=== PATIENT | female | born 1980 | race African-American/Black ===

== ENCOUNTER 2017-06-22 16:24 | Emergency (ER) | payer OTHER ==
[~2017-06-22] VITALS: Ht 149.9 cm; Wt 45.4 kg
[~2017-06-22 16:24] MED LIST: BENADRYL50 MG ORAL; CATAPRES0.1 MG ORAL; CLONIDINE0.1 MG GT; DIPHENHYDRAMINE25 M1 ORAL; FOLIC ACID1 MG ORAL; IBUPROFEN600 MG ORAL; Mesalamine ORAL; NORCO 5-325 TA1 EACH ORAL; PHENOBARBITAL30 MG ORAL; PHENOBARBITAL60 MG ORAL; PREDNISONE20 MG ORAL; PREDNISONE5 MG ORAL; PROTONIX40 MG ORAL; UNK BP MED
[2017-06-22 16:30] VITALS: BP 194/118
--- NOTE | 2017-06-22 16:38 | Emergency Room Report ---
History of Present Illness General Chief Complaint: Abdominal Pain Source: Patient Present Illness HPI 37-year-old female, history of Crohn's disease, history of gallbladder surgery, p/w abdominal pain for 2 days. Patient states pain started gradually, all over abdomen, non radiating, sharp/ crampy in nature, intermittent. No relieving or exacerbating factors. Severity is 5/10. Denies nvd. States that she has not passed gas or stool in 2 days Denies fever, chills. Allergies: Coded Allergies: No Known Allergies (Unverified , 01/23/16) Patient History Past Medical History: see triage record Past Surgical History: none Pertinent Family History: none Last Menstrual Period: Chron's Reviewed Nursing Documentation: PMH: Agreed, PSxH: Agreed Nursing Documentation-PMH Hx Cardiac Problems: Yes Hx Hypertension: Yes Hx Cancer: No Hx Neurological Problems: Yes Hx Seizures: Yes Review of Systems All Other Systems: negative except mentioned in HPI Physical Exam Vital Signs Date Time Temp Pulse Resp B/P (MAP) Pulse Ox O2 Delivery O2 Flow Rate FiO2 06/22/17 16:20 Room Air Sp02 EP Interpretation: reviewed, normal General Appearance: alert, GCS 15, non-toxic, mild distress Head: normocephalic, atraumatic Eyes: bilateral eye normal inspection, bilateral eye PERRL, bilateral eye EOMI ENT: normal ENT inspection, normal pharynx, normal voice, moist mucus membranes Neck: normal inspection, full range of motion, supple Respiratory: normal inspection, lungs clear, normal breath sounds, no respiratory distress, no retraction, no wheezing, speaking full sentences, chest symmetrical Cardiovascular #1: normal inspection, regular rate, rhythm, normal capillary refill Cardiovascular #2: 2+ radial (R), 2+ radial (L) Gastrointestinal: other - Well-healed surgical scars on abdomen, slight distention, hypoactive bowel sounds, generalized tenderness throughout abdomen, no guarding no rigidity Musculoskeletal: normal inspection, back normal, normal range of motion, non- tender Neurologic: normal inspection, alert, oriented x3, responsive, motor strength/ tone normal, sensory intact, normal gait, speech normal Psychiatric: normal inspection, judgement/insight normal, memory normal Skin: normal inspection, normal color, no rash, warm/dry, well hydrated, normal turgor Medical Decision Making Diagnostic Impression: Primary Impression: UTI (urinary tract infection) Additional Impression: Trichomonal vaginitis ER Course 37-year-old female, presenting with abdominal pain, constipation Differential Diagnosis: SBO, Gastritis, gastroenteritis, appendicitis, diverticulitis, intra-abdominal abscess, complication of Crohn's disease,, UTI/pyelo Plan: Basic labs, ua, pain control, IVF CT abdopelvis ER course: Patient has remained stable during ED stay. patient given 2g flagyl for trichomonas Repeat abd exam, nontender no guarding or ridigity also has UTI ovarian cyst Disposition: Patient is to be discharged to home. ABX for UTI given Strict return precautions discussed with patient such as fever, chills, worsening/severe abdominal pain, nausea, vomiting, black or bloody stools, which may indicate severe illness. Patient verbalizes understanding and agrees with plan. Please note that this Emergency Department Report was dictated using [employer] and control technology software, occasionally this can lead to erroneous entry secondary to interpretation by the dictation equipment Rhythm Strip EP Interpretation: Yes Rate: 92 Rhythm: NSR, no PVCs, no ectopy Laboratory Tests Test 06/22/17 16:40 06/22/17 19:15 Urine Color Stacy Urine Appearance Cloudy Urine pH 6.5 (4.5-8.0) Urine Specific [place] 1.015 (1.005-1.035) Urine Protein 3+ (NEGATIVE) H Urine Glucose (UA) Negative (NEGATIVE) Urine Ketones 1+ (NEGATIVE) H Urine Occult Blood 4+ (NEGATIVE) H Urine Nitrite Negative (NEGATIVE) Urine Bilirubin Negative (NEGATIVE) Urine Ictotest Negative Urine Urobilinogen Normal MG/DL (0.0-1.0) Urine Leukocyte Esterase 2+ (NEGATIVE) H Urine RBC 15-20 /HPF (0 - 2) H Urine WBC 15-20 /HPF (0 - 2) H Urine Squamous Epithelial Cells Many /LPF (NONE/OCC) H Urine Bacteria Moderate /HPF (NONE) H Urine Trichomonas Moderate /HPF (NONE) H Urine HCG, Qualitative Negative White Blood Count 8.2 K/UL (4.8-10.8) Red Blood Count 3.14 M/UL (4.20-5.40) L Hemoglobin 10.0 G/DL (12.0-16.0) L Hematocrit 31.8 % (37.0-47.0) L Mean Corpuscular Volume 101 FL (80-99) H Mean Corpuscular Hemoglobin 31.9 PG (27.0-31.0) H Mean Corpuscular Hemoglobin Concent 31.5 G/DL (32.0-36.0) L Red Cell Distribution Width 20.1 % (11.6-14.8) H Platelet Count 425 K/UL (150-450) Mean Platelet Volume 4.9 FL (6.5-10.1) L Neutrophils (%) (Auto) 65.9 % (45.0-75.0) Lymphocytes (%) (Auto) 23.9 % (20.0-45.0) Monocytes (%) (Auto) 7.3 % (1.0-10.0) Eosinophils (%) (Auto) 2.3 % (0.0-3.0) Basophils (%) (Auto) 0.5 % (0.0-2.0) Sodium Level 137 MMOL/L (136-145) Potassium Level 3.2 MMOL/L (3.5-5.1) L Chloride Level 105 MMOL/L (98-107) Carbon Dioxide Level 20 MMOL/L (21-32) L Anion Gap 12 mmol/L (5-15) Blood Urea Nitrogen 23 mg/dL (7-18) H Creatinine 1.3 MG/DL (0.55-1.30) Estimate Glomerular Filtration Rate 55.3 mL/min (>60) Glucose Level 81 MG/DL (74-106) Calcium Level 9.1 MG/DL (8.5-10.1) Total Bilirubin 0.2 MG/DL (0.2-1.0) Aspartate Amino Transferase (AST) 15 U/L (15-37) Alanine Aminotransferase (ALT) 9 U/L (12-78) L Alkaline Phosphatase 95 U/L (46-116) Total Protein 8.0 G/DL (6.4-8.2) Albumin 3.0 G/DL (3.4-5.0) L Globulin 5.0 g/dL Albumin/Globulin Ratio 0.6 (1.0-2.7) L Lipase 91 U/L (73-393) CT/MRI/US Diagnostic Results CT/MRI/US Diagnostic Results : Impression CT ABDOMEN & PELVIS: Compared to CT abdomen and pelvis 04/02/2014 4.6 centimeter left ovarian low-density lesion, probably a cyst. There may be dilation of the adjacent left fallopian tube. Pelvic sonography may be useful. No bowel obstruction. Evidence of appendectomy. Regions of small and large bowel wall thickening, may be due to enterocolitis. No urinary obstruction. Urinary bladder wall thickening, maybe due to cystitis. Cholecystectomy. No CT evidence of acute pancreatitis. Trace free fluid. No free air. Last Vital Signs Date Time Temp Pulse Resp B/P (MAP) Pulse Ox O2 Delivery O2 Flow Rate FiO2 06/22/17 16:20 Room Air Disposition: HOME, SELF-CARE Condition: Improved Scripts Amlodipine Besylate* (AMLODIPINE BESYLATE*) 2.5 Mg Tablet 2.5 MG ORAL DAILY, #7 TAB 0 Refills Prov: Santy Merrill M.D. 06/22/17 Nitrofurantoin Monohyd/M-Cryst* (MACROBID 100 MG*) 100 Mg Capsule 100 MG ORAL EVERY 12 HOURS for 7 Days, #14 CAP Prov: Santy Merrill M.D. 06/22/17 Santy Merrill M.D. Jun 22, 2017 16:38
[2017-06-22 17:26] LABS: APPEARANCE,URINE CLOUDY; BILIRUBIN, URINE NEGATIVE (NEGATIVE); COLOR,URINE AMBER; GLUCOSE, URINE (UA) NEGATIVE (NEGATIVE); KETONES,URINE 1+ (NEGATIVE); LEUKOCYTE ESTERASE ,URINE 2+ (NEGATIVE); NITRITE,URINE NEGATIVE (NEGATIVE); PH,URINE 6.5 (4.5-8.0); PROTEIN,URINE 3+ (NEGATIVE); UROBILINOGEN,URINE NORMAL MG/DL (0.0-1.0)
[2017-06-22 18:28] VITALS: BP 193/118
[2017-06-22 19:27] LABS: BASOPHILS % (AUTO) 0.5 % (0.0-2.0); EOSINOPHILS % (AUTO) 2.3 % (0.0-3.0); HEMATOCRIT 31.8 % (37.0-47.0); LYMPHOCYTES % (AUTO) 23.9 % (20.0-45.0); MEAN CORPUSCULAR VOLUME 101 FL (80-99); MONOCYTES % (AUTO) 7.3 % (1.0-10.0); NEUTROPHILS % (AUTO) 65.9 % (45.0-75.0); PLATELET COUNT 425 K/UL (150-450); RED BLOOD COUNT 3.14 M/UL (4.20-5.40); RED CELL DISTRIBUTION WIDTH 20.1 % (11.6-14.8); WHITE BLOOD COUNT 8.2 K/UL (4.8-10.8)
[2017-06-22 19:30] VITALS: BP 184/115
[2017-06-22] MEDS ORDERED: NITROFURANTOIN100 M2 ORAL (19:40)
[2017-06-22 19:43] LABS: ANION GAP 12 mmol/L (5-15); BLOOD UREA NITROGEN 23 mg/dL (7-18); CALCIUM 9.1 MG/DL (8.5-10.1); CARBON DIOXIDE 20 MMOL/L (21-32); CHLORIDE 105 MMOL/L (98-107); CREATININE 1.3 MG/DL (0.55-1.30); POTASSIUM 3.2 MMOL/L (3.5-5.1); SODIUM 137 MMOL/L (136-145)
[2017-06-22] MEDS ORDERED: metroNIDAZOLE 500mg tab ORAL ONE (19:45)
[2017-06-22 19:49] LABS: ALANINE AMINOTRANSFERASE 9 U/L (12-78); ALBUMIN/GLOBULIN RATIO 0.6 (1.0-2.7); ALKALINE PHOSPHATASE 95 U/L (46-116); ASPARTATE AMINO TRANSFERASE 15 U/L (15-37); BILIRUBIN,TOTAL 0.2 MG/DL (0.2-1.0)
[2017-06-22] MEDS ORDERED: Ketorolac 30mg Inj IV ONE (20:00)
[2017-06-22 20:30] VITALS: BP 179/111
[2017-06-22 21:30] VITALS: BP 142/88
[2017-06-22] MEDS ORDERED: AMLODIPINE BES2.5 MG ORAL (21:38)
[2017-06-22 22:40] VITALS: BP 142/88
--- NOTE | 2017-06-23 12:33 | Diagnostic Imaging Report ---
Clinical Indication: Abdominal pain Technique: No oral contrast utilized, per emergency room physician request IV administration nonionic contrast. Venous phase spiral acquisition obtained through the abdomen and pelvis. Multiplanar reconstructions were generated. Total dose length product 421.37 mGycm. CTDIvol(s) 9 mGy. Dose reduction achieved using automated exposure control Comparison: 11/30/2013 noncontrast study Findings: The appendix is not definitely identified. Surgical gabino in the cecum suggest prior appendectomy and/or partial colectomy and ileocolic anastomosis. Considerable fluid is seen within the proximal colon. There are questionably areas of colon wall thickening. There is no evidence of diverticulosis or diverticulitis. There are scattered mildly dilated gas and fluid-filled small bowel loops, but no generalized small bowel distention or transition point demonstrated. There are questionably some areas of small bowel wall thickening The distal esophagus, stomach, duodenum are unremarkable. There is trace free pelvic fluid. No free intraperitoneal air. There is a 5.2 cm diameter complex cystic lesion in the left adnexal region. This contains a central dominant 4 cm cyst with suggestion of surrounding smaller cysts and possible septations. The uterus is unremarkable as is the right ovary. The gallbladder is surgically absent. The liver, pancreas, spleen, adrenals, kidneys are all unremarkable. No retroperitoneal or mesenteric mass or adenopathy. There is equivocal mild bladder wall thickening. Impression: Complex 5.2 cm left ovarian cystic mass. Recommend pelvic sonography for better characterization Fluid-filled proximal colon. Questionable areas of colonic and small bowel wall thickening, could indicate enterocolitis Postsurgical changes of the right lower quadrant, also previously described Equivocal mild bladder wall thickening, probably an artifact of under distention, cystitis or excludable Trace free pelvic fluid, probably physiologic Evidence of prior cholecystectomy This agrees with the preliminary interpretation provided overnight by [facility]. The CT scanner at [facility] is accredited by the [employer] and the scans are performed using protocols designed to limit radiation exposure to as low as reasonably achievable to attain images of sufficient resolution adequate for diagnostic evaluation.
[2017-07-09] MEDS ORDERED: LEVOTHYROXINE25 MCG ORAL (13:49)
== END 2017-06-22 22:40 | disposition home or self-care (01) ==
LOC: EDBD 16:24 → EMR 17:05
DX: N39.0 Urinary tract infection, site not specified (principal); A59.01 Trichomonal vulvovaginitis; I10 Essential (primary) hypertension; Z90.49 Acquired absence of other specified parts of digestive tract
CPT/HCPCS: 36415; 74177; 80053; 81003; 81025; 83690; 85025; 87086; 87181; 96361; 96374; 96375; 99284; J1885; J2405; Q9967; S0028

== ENCOUNTER 2017-06-25 17:25 | Emergency (ER) | payer OTHER ==
[~2017-06-25] VITALS: Ht 149.9 cm; Wt 54.4 kg
[~2017-06-25 17:25] MED LIST changes: +AMLODIPINE BES2.5 MG ORAL; +NITROFURANTOIN100 M2 ORAL
[2017-06-25 17:33] VITALS: BP 183/137
[2017-06-25] MEDS ORDERED: Morphine Sulfate 4mg/ml Inj IVP ONE (18:30)
[2017-06-25 18:57] LABS: BASOPHILS % (AUTO) 0.7 % (0.0-2.0); EOSINOPHILS % (AUTO) 1.8 % (0.0-3.0); HEMATOCRIT 35.9 % (37.0-47.0); HEMOGLOBIN 11.3 G/DL (12.0-16.0); LYMPHOCYTES % (AUTO) 20.7 % (20.0-45.0); MEAN CORPUSCULAR VOLUME 102 FL (80-99); MONOCYTES % (AUTO) 10.1 % (1.0-10.0); NEUTROPHILS % (AUTO) 66.7 % (45.0-75.0); PLATELET COUNT 463 K/UL (150-450); RED BLOOD COUNT 3.53 M/UL (4.20-5.40); RED CELL DISTRIBUTION WIDTH 20.4 % (11.6-14.8); WHITE BLOOD COUNT 9.4 K/UL (4.8-10.8)
[2017-06-25 19:15] LABS: APPEARANCE,URINE CLEAR; BILIRUBIN, URINE NEGATIVE (NEGATIVE); COLOR,URINE PALE YELLOW; GLUCOSE, URINE (UA) NEGATIVE (NEGATIVE); KETONES,URINE NEGATIVE (NEGATIVE); LEUKOCYTE ESTERASE ,URINE 1+ (NEGATIVE); NITRITE,URINE NEGATIVE (NEGATIVE); PH,URINE 6 (4.5-8.0); PROTEIN,URINE 2+ (NEGATIVE); UROBILINOGEN,URINE NORMAL MG/DL (0.0-1.0)
[2017-06-25 19:20] LABS: ANION GAP 14 mmol/L (5-15); BLOOD UREA NITROGEN 34 mg/dL (7-18); CALCIUM 9.8 MG/DL (8.5-10.1); CARBON DIOXIDE 19 MMOL/L (21-32); CHLORIDE 103 MMOL/L (98-107); POTASSIUM 3.6 MMOL/L (3.5-5.1); SODIUM 136 MMOL/L (136-145)
[2017-06-25 19:26] LABS: ALANINE AMINOTRANSFERASE 9 U/L (12-78); ALBUMIN 3.7 G/DL (3.4-5.0); ALBUMIN/GLOBULIN RATIO 0.7 (1.0-2.7); ALKALINE PHOSPHATASE 99 U/L (46-116); ASPARTATE AMINO TRANSFERASE 16 U/L (15-37); BILIRUBIN,TOTAL 0.1 MG/DL (0.2-1.0)
[2017-06-25 19:33] VITALS: BP 159/99
--- NOTE | 2017-06-25 21:31 | Emergency Room Report ---
History of Present Illness General Chief Complaint: Nausea, Vomiting, and Diarrhea Source: EMS Present Illness HPI 37-year-old female presents to the emergency department complaining of cramping abdominal pain with weakness and nausea, vomiting and diarrhea x2 days. Patient reports history of Crohn disease she rates her pain as 10 out of 10 in severity generalized throughout the abdomen. Patient denies fevers or chills. Patient denies marijuana use or . Patient denies rashes, recent head injury or blood in the vomit or stool. Patient reports recent antibiotic use she denies profuse watery diarrhea. Denies CP, Palpitations, LOC, AMS, dizziness , Changes in Vision, Sensation, paresthesias, or a sudden severe headache. pt also request refill of her phenobarbital. reports hx of seizures. Allergies: Coded Allergies: No Known Allergies (Unverified , 01/23/16) Patient History Past Medical History: see triage record Past Surgical History: none Pertinent Family History: none Reviewed Nursing Documentation: PMH: Agreed, PSxH: Agreed Nursing Documentation-PMH Past Medical History: No History, Except For Hx Cardiac Problems: Yes Hx Hypertension: Yes Hx Cancer: No Hx Gastrointestinal Problems: Yes Hx Neurological Problems: Yes Hx Seizures: Yes Review of Systems All Other Systems: negative except mentioned in HPI Physical Exam Vital Signs Date Time Temp Pulse Resp B/P (MAP) Pulse Ox O2 Delivery O2 Flow Rate FiO2 06/25/17 17:22 98.6 102 20 183/137 99 Room Air Sp02 EP Interpretation: reviewed, normal General Appearance: no apparent distress, alert, GCS 15, non-toxic Head: normocephalic, atraumatic Eyes: bilateral eye normal inspection, bilateral eye PERRL ENT: hearing grossly normal, normal voice Neck: full range of motion Respiratory: lungs clear, normal breath sounds, no respiratory distress, no accessory muscle use, no wheezing, speaking full sentences Cardiovascular #1: regular rate, rhythm Gastrointestinal: normal bowel sounds, soft, tenderness - mild epigastric TTP, and RUQ ttp. Rectal: deferred Genitourinary: normal inspection Musculoskeletal: back normal, gait/station normal, normal range of motion, non- tender Neurologic: alert, oriented x3, responsive, motor strength/tone normal, sensory intact, speech normal, grossly normal Psychiatric: judgement/insight normal Skin: normal color, no rash, warm/dry, well hydrated Medical Decision Making PA Attestation Dr. Levin is my supervising Physician whom patient management has been discussed with. Diagnostic Impression: Primary Impression: Abdominal pain Qualified Codes: R10.13 - Epigastric pain Additional Impressions: Dehydration, moderate Marijuana use BRIJESH (acute kidney injury) ER Course 37-year-old female presents to the emergency department complaining of cramping abdominal pain with weakness and nausea, vomiting and diarrhea x2 days. Patient reports history of Crohn disease she rates her pain as 10 out of 10 in severity generalized throughout the abdomen. Patient denies fevers or chills. Patient denies marijuana use or . Patient denies rashes, recent head injury or blood in the vomit or stool. Patient reports recent antibiotic use she denies profuse watery diarrhea. Denies CP, Palpitations, LOC, AMS, dizziness , Changes in Vision, Sensation, paresthesias, or a sudden severe headache. pt also request refill of her phenobarbital. reports hx of seizures. Ddx considered but are not limited to GE, colitis, acute appy, SBO, Cyclical Vomiting secondary to THC, * Vital signs: pt. is afebrile, H&PE are most consistent with GE most likely viral in etiology, no evidence to suggest acute abdomen on physical exam. Given that this patient has had normal CT abdomen performed days ago I feel it is unnecessary to subject patient to additional radiation at this time given similar complaints and no localized abdominal tenderness. Review of patient's previous imaging studies as well as lab work. ORDERS: -CBC: anemia which has improved from previous values. - CMP: elevated BUN and Cr. indication dehydration and BRIJESH. Lipase: WNL -None required at this time, the dx is clinical. -Urine Hcg: Negative -UDS: Positive for THC -UA: ED INTERVENTIONS: -1000 NS iv hydration, -Zofran 4mg -Gi Cocktail without bentyl Pt. now able to tolerate PO meds and fluids. Pain is controlled. d/w pt. close outpatient follow up with GI specialist and to continue moderate re-hydration at home. DISCHARGE: At this time pt. is stable for d/c to home. Will provide printed patient care instructions, and any necessary prescriptions. Care plan and follow up instructions have been discussed with the patient prior to discharge. Labs Test 06/25/17 18:38 White Blood Count 9.4 K/UL (4.8-10.8) Red Blood Count 3.53 M/UL (4.20-5.40) Hemoglobin 11.3 G/DL (12.0-16.0) Hematocrit 35.9 % (37.0-47.0) Mean Corpuscular Volume 102 FL (80-99) Mean Corpuscular Hemoglobin 32.0 PG (27.0-31.0) Mean Corpuscular Hemoglobin Concent 31.5 G/DL (32.0-36.0) Red Cell Distribution Width 20.4 % (11.6-14.8) Platelet Count 463 K/UL (150-450) Mean Platelet Volume 5.0 FL (6.5-10.1) Neutrophils (%) (Auto) 66.7 % (45.0-75.0) Lymphocytes (%) (Auto) 20.7 % (20.0-45.0) Monocytes (%) (Auto) 10.1 % (1.0-10.0) Eosinophils (%) (Auto) 1.8 % (0.0-3.0) Basophils (%) (Auto) 0.7 % (0.0-2.0) Urine Color Pale yellow Urine Appearance Clear Urine pH 6 (4.5-8.0) Urine Specific [place] 1.010 (1.005-1.035) Urine Protein 2+ (NEGATIVE) Urine Glucose (UA) Negative (NEGATIVE) Urine Ketones Negative (NEGATIVE) Urine Occult Blood 2+ (NEGATIVE) Urine Nitrite Negative (NEGATIVE) Urine Bilirubin Negative (NEGATIVE) Urine Urobilinogen Normal MG/DL (0.0-1.0) Urine Leukocyte Esterase 1+ (NEGATIVE) Urine RBC 5-10 /HPF (0 - 2) Urine WBC 2-4 /HPF (0 - 2) Urine Squamous Epithelial Cells Moderate /LPF (NONE/OCC) Urine Bacteria Few /HPF (NONE) Urine HCG, Qualitative Negative Sodium Level 136 MMOL/L (136-145) Potassium Level 3.6 MMOL/L (3.5-5.1) Chloride Level 103 MMOL/L (98-107) Carbon Dioxide Level 19 MMOL/L (21-32) Anion Gap 14 mmol/L (5-15) Blood Urea Nitrogen 34 mg/dL (7-18) Creatinine 2.0 MG/DL (0.55-1.30) Estimat Glomerular Filtration Rate 33.7 mL/min (>60) Glucose Level 91 MG/DL (74-106) Calcium Level 9.8 MG/DL (8.5-10.1) Total Bilirubin 0.1 MG/DL (0.2-1.0) Aspartate Amino Transf (AST/SGOT) 16 U/L (15-37) Alanine Aminotransferase (ALT/SGPT) 9 U/L (12-78) Alkaline Phosphatase 99 U/L (46-116) Total Protein 8.9 G/DL (6.4-8.2) Albumin 3.7 G/DL (3.4-5.0) Globulin 5.2 g/dL Albumin/Globulin Ratio 0.7 (1.0-2.7) Lipase 120 U/L (73-393) Urine Opiates Screen Negative (NEGATIVE) Urine Barbiturates Screen Negative (NEGATIVE) Phencyclidine (PCP) Screen Negative (NEGATIVE) Urine Amphetamines Screen Negative (NEGATIVE) Urine Benzodiazepines Screen Negative (NEGATIVE) Urine Cocaine Screen Negative (NEGATIVE) Urine Marijuana (THC) Screen Positive (NEGATIVE) Last Vital Signs Date Time Temp Pulse Resp B/P (MAP) Pulse Ox O2 Delivery O2 Flow Rate FiO2 06/25/17 19:14 98.6 06/25/17 17:33 20 183/137 99 Room Air 06/25/17 17:22 102 Disposition: HOME, SELF-CARE Condition: Stable Scripts Capsaicin (CAPSAICIN) 42.5 Gm Cream..g. 1 APPLIC TP PRN for Nausea & Vomiting, #42.5 GM Prov: Marie Tomas.ATiana 06/25/17 Phenobarbital (PHENOBARBITAL) 97.2 Mg Tablet 97.2 MG PO DAILY, #20 TAB Prov: Marie Tomas.A. 06/25/17 Ondansetron Odt* (ZOFRAN ODT*) 4 Mg Tab.rapdis 4 MG ORAL Q6H Y for Nausea & Vomiting, #20 TAB Prov: Marie Tomas.A. 06/25/17 Referrals: [facility],REFERRING (PCP) Patient Instructions: Cyclic Vomiting Syndrome, Pediatric, Nausea and Vomiting , Adult, [id number] Additional Instructions: Take medications as directed. Follow up with a Primary Care Provider in 3-5 days, even if your symptoms have resolved. --To repeat basic labs as your creatinine and BUN were elevated. This is usually caused by dehydration, however it is imperative that he follow up with her primary care doctor. Discontinue marijuana use. --Please review list of primary care clinics, if you do not already have a primary care provider Return sooner to ED if new symptoms occur, or current symptoms become worse. - Please note that this Emergency Department Report was dictated using [employer] banking assistant technology software, occasionally this can lead to erroneous entry secondary to interpretation by the dictation equipment. Marie Tomas Jun 25, 2017 21:31
[2017-06-25 21:33] VITALS: BP 155/91
[2017-06-25] MEDS ORDERED: Lidocaine 2% Visc 15ml soln ORAL ONE (21:45)
[2017-06-25] MEDS ORDERED: Mylanta II UD 30ml ORAL ONE (21:45)
[2017-06-25] MEDS ORDERED: PHENOBARBITAL97.2 MG PO (21:54)
[2017-06-25] MEDS ORDERED: ZOFRAN ODT4 MG ORAL (21:54)
[2017-06-25] MEDS ORDERED: CAPSAICIN42.5 GM TP (21:54)
[2017-06-25 23:00] VITALS: BP 156/88
[2017-07-09] MEDS ORDERED: LEVOTHYROXINE25 MCG ORAL (13:49)
== END 2017-06-25 23:00 | disposition home or self-care (01) ==
LOC: EDBD 17:25 → EMR 18:16
DX: R10.84 Generalized abdominal pain (principal); E86.0 Dehydration; N17.9 Acute kidney failure, unspecified; F12.90 Cannabis use, unspecified, uncomplicated; I10 Essential (primary) hypertension
CPT/HCPCS: 36415; 80053; 80307; 81001; 81025; 83690; 85025; 96361; 96374; 96375; 99284; J2270; J2405

== ENCOUNTER 2017-07-01 15:21 | Inpatient (IN) | payer OTHER ==
[~2017-07-01] VITALS: Ht 149.9 cm; Wt 45.4 kg
[~2017-07-01 15:21] MED LIST changes: +CAPSAICIN42.5 GM TP; +PHENOBARBITAL97.2 MG PO; +ZOFRAN ODT4 MG ORAL
[2017-07-01 15:33] VITALS: BP 133/89
[2017-07-01] MEDS ORDERED: Morphine Sulfate 4mg/ml Inj IVP ONE ×2 (16:00→19:45)
[2017-07-01] MEDS ORDERED: DiphenhydrAMINE 50mg/ml Inj IVP ONE (16:30)
[2017-07-01 16:40] LABS: HEMATOCRIT 22.1 % (37.0-47.0); MEAN CORPUSCULAR VOLUME 102 FL (80-99); PLATELET COUNT 452 K/UL (150-450); RED BLOOD COUNT 2.17 M/UL (4.20-5.40); RED CELL DISTRIBUTION WIDTH 20.2 % (11.6-14.8); WHITE BLOOD COUNT 11.9 K/UL (4.8-10.8)
[2017-07-01 16:51] LABS: APPEARANCE,URINE CLOUDY; BILIRUBIN, URINE NEGATIVE (NEGATIVE); COLOR,URINE PALE YELLOW; GLUCOSE, URINE (UA) NEGATIVE (NEGATIVE); KETONES,URINE NEGATIVE (NEGATIVE); LEUKOCYTE ESTERASE ,URINE 2+ (NEGATIVE); NITRITE,URINE NEGATIVE (NEGATIVE); PH,URINE 6 (4.5-8.0); PROTEIN,URINE 2+ (NEGATIVE); UROBILINOGEN,URINE NORMAL MG/DL (0.0-1.0)
[2017-07-01 17:00] LABS: ANION GAP 12 mmol/L (5-15); BLOOD UREA NITROGEN 59 mg/dL (7-18); CARBON DIOXIDE 20 MMOL/L (21-32); CHLORIDE 101 MMOL/L (98-107); CREATININE 1.9 MG/DL (0.55-1.30); POTASSIUM 3.6 MMOL/L (3.5-5.1); SODIUM 133 MMOL/L (136-145)
[2017-07-01 17:08] LABS: ALANINE AMINOTRANSFERASE 8 U/L (12-78); ALBUMIN 3.3 G/DL (3.4-5.0); ALBUMIN/GLOBULIN RATIO 0.8 (1.0-2.7); ALKALINE PHOSPHATASE 81 U/L (46-116); ASPARTATE AMINO TRANSFERASE 13 U/L (15-37); BILIRUBIN,TOTAL 0.1 MG/DL (0.2-1.0)
[2017-07-01 18:16] LABS: INR 1.1 (0.9-1.1)
[2017-07-01 18:53] VITALS: BP 131/92
--- NOTE | 2017-07-01 19:35 | Emergency Room Report ---
History of Present Illness General Chief Complaint: Syncope Source: Patient Present Illness HPI 37-year-old female presents to ED for evaluation. Patient states she had a syncopal episode while visiting a family member in the hospital today. States he's been feeling weak. Vomiting with coffee-ground emesis. History of Crohn' s disease. Also complaining of abdominal pain. 8/10, sharp, nonradiating. Denies any blood in stool. Denies chest pain or shortness of breath. No other aggravating or relieving factors. Denies any other associated symptoms Allergies: Coded Allergies: No Known Allergies (Unverified , 01/23/16) Patient History Past Medical History: HTN, seizures Past Surgical History: none Pertinent Family History: none Social History: Denies: smoking, alcohol use, drug use Now: No Immunizations: UTD Reviewed Nursing Documentation: PMH: Agreed, PSxH: Agreed Nursing Documentation-PMH Past Medical History: No History, Except For Hx Cardiac Problems: Yes Hx Hypertension: Yes Hx Cancer: No Hx Neurological Problems: Yes Hx Seizures: Yes Review of Systems All Other Systems: negative except mentioned in HPI Physical Exam Vital Signs Date Time Temp Pulse Resp B/P (MAP) Pulse Ox O2 Delivery O2 Flow Rate FiO2 07/01/17 15:25 98.6 124 19 133/89 100 Room Air 98.6 Sp02 EP Interpretation: reviewed, normal General Appearance: alert, GCS 15, non-toxic, mild distress, thin Head: normocephalic, atraumatic Eyes: bilateral eye normal inspection, bilateral eye PERRL ENT: hearing grossly normal, normal pharynx, no angioedema, normal voice Neck: full range of motion, supple/symm/no masses Respiratory: chest non-tender, lungs clear, normal breath sounds, speaking full sentences Cardiovascular #1: no edema, tachycardia Cardiovascular #2: 2+ carotid (R), 2+ carotid (L), 2+ radial (R), 2+ radial (L) , 2+ dorsalis pedis (R), 2+ dorsalis pedis (L) Gastrointestinal: normal bowel sounds, soft, non-distended, no guarding, no rebound, tenderness Rectal: deferred Genitourinary: normal inspection, no CVA tenderness Musculoskeletal: back normal, gait/station normal, normal range of motion, non- tender Neurologic: alert, oriented x3, responsive, motor strength/tone normal, sensory intact, speech normal Psychiatric: judgement/insight normal, memory normal, mood/affect normal, no suicidal/homicidal ideation Reflexes: 3+ bicep (R), 3+ bicep (L), 3+ tricep (R), 3+ tricep (L), 3+ knee (R) , 3+ knee (L) Skin: normal color, no rash, warm/dry, well hydrated Lymphatic: no adenopathy Medical Decision Making Diagnostic Impression: Primary Impression: Syncope Qualified Codes: R55 - Syncope and collapse Additional Impressions: Anemia Qualified Codes: D64.9 - Anemia, unspecified Elevated troponin Renal insufficiency UTI (urinary tract infection) Qualified Codes: N39.0 - Urinary tract infection, site not specified ER Course Hospital Course 37-year-old F presents ED s/p syncopal episode. tachycardia Differential diagnoses include: NC/unstable angina, arrythmia, dehydration Clinical course Patient placed on stretcher. 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 After initial history and physical I ordered labs, EKG, zofran, pain meds Patient is difficult IV access. I placed a peripheral EJ line labs reviewed- noted leukocytosis, hemoglobin/hematocrit 7/22, BUN/Cr elevated, trop 0.107 EKG-sinus tachycardia PRBCs ordered. Aspirin given. abx given. Case discussed with Dr. Sawyer and he agreed to accept the patient to his service for further care and support I. I feel this is a highly complex case requiring extensive working including EKG/Rhythm strip, Xray/CT/US, Blood/urine lab work, repeat exams while in ED, and administration of strong opiates/narcotics for pain control, admission to hospital or close patient follow up. Diagnosis - syncope, anemi, elevated troponin, renal insuffiency, UTI admitted to telemetry in serious condition Labs Test 07/01/17 16:14 07/01/17 17:44 White Blood Count 11.9 K/UL (4.8-10.8) Red Blood Count 2.17 M/UL (4.20-5.40) Hemoglobin 7.0 G/DL (12.0-16.0) Hematocrit 22.1 % (37.0-47.0) Mean Corpuscular Volume 102 FL (80-99) Mean Corpuscular Hemoglobin 32.1 PG (27.0-31.0) Mean Corpuscular Hemoglobin Concent 31.5 G/DL (32.0-36.0) Red Cell Distribution Width 20.2 % (11.6-14.8) Platelet Count 452 K/UL (150-450) Mean Platelet Volume 5.3 FL (6.5-10.1) Neutrophils (%) (Auto) % (45.0-75.0) Lymphocytes (%) (Auto) % (20.0-45.0) Monocytes (%) (Auto) % (1.0-10.0) Eosinophils (%) (Auto) % (0.0-3.0) Basophils (%) (Auto) % (0.0-2.0) Differential Total Cells Counted 100 Neutrophils % (Manual) 70 % (45-75) Lymphocytes % (Manual) 30 % (20-45) Monocytes % (Manual) 0 % (1-10) Eosinophils % (Manual) 0 % (0-3) Basophils % (Manual) 0 % (0-2) Band Neutrophils 0 % (0-8) Nucleated Red Blood Cells 1 /100 WBC Platelet Estimate Adequate Platelet Morphology Normal Polychromasia 1+ Hypochromasia 3+ Anisocytosis 3+ Macrocytosis 2+ Urine Color Pale yellow Urine Appearance Cloudy Urine pH 6 (4.5-8.0) Urine Specific [place] 1.010 (1.005-1.035) Urine Protein 2+ (NEGATIVE) Urine Glucose (UA) Negative (NEGATIVE) Urine Ketones Negative (NEGATIVE) Urine Occult Blood 4+ (NEGATIVE) Urine Nitrite Negative (NEGATIVE) Urine Bilirubin Negative (NEGATIVE) Urine Urobilinogen Normal MG/DL (0.0-1.0) Urine Leukocyte Esterase 2+ (NEGATIVE) Urine RBC 2-4 /HPF (0 - 2) Urine WBC 0-2 /HPF (0 - 2) Urine Squamous Epithelial Cells Many /LPF (NONE/OCC) Urine Bacteria Moderate /HPF (NONE) Urine HCG, Qualitative Negative Sodium Level 133 MMOL/L (136-145) Potassium Level 3.6 MMOL/L (3.5-5.1) Chloride Level 101 MMOL/L (98-107) Carbon Dioxide Level 20 MMOL/L (21-32) Anion Gap 12 mmol/L (5-15) Blood Urea Nitrogen 59 mg/dL (7-18) Creatinine 1.9 MG/DL (0.55-1.30) Estimat Glomerular Filtration Rate 35.8 mL/min (>60) Glucose Level 107 MG/DL (74-106) Calcium Level 9.0 MG/DL (8.5-10.1) Total Bilirubin 0.1 MG/DL (0.2-1.0) Aspartate Amino Transf (AST/SGOT) 13 U/L (15-37) Alanine Aminotransferase (ALT/SGPT) 8 U/L (12-78) Alkaline Phosphatase 81 U/L (46-116) Troponin I 0.107 ng/mL (0.000-0.056) Total Protein 7.3 G/DL (6.4-8.2) Albumin 3.3 G/DL (3.4-5.0) Globulin 4.0 g/dL Albumin/Globulin Ratio 0.8 (1.0-2.7) Lipase 157 U/L (73-393) Phenobarbital Level < 1.0 ug/mL (15-40) Prothrombin Time 11.1 SEC (9.30-11.50) Prothromb Time International Ratio 1.1 (0.9-1.1) Activated Partial Thromboplast Time 25 SEC (23-33) EKG Diagnostic Results Rate: tachycardiac Rhythm: NSR ST Segments: no acute changes ASA given to the pt in ED: No Rhythm Strip Diag. Results EP Interpretation: yes Rhythm: NSR, no PVC's, no ectopy Last Vital Signs Date Time Temp Pulse Resp B/P (MAP) Pulse Ox O2 Delivery O2 Flow Rate FiO2 07/01/17 18:53 109 19 131/92 100 Room Air 07/01/17 16:56 98.6 Status: improved Disposition: ADMITTED INPATIENT Condition: Serious Referrals: CONNOR TURCIOS,REFERRING (PCP) JUDE HERRERA M.D. Jul 01, 2017 19:34
[2017-07-01] MEDS ORDERED: Zolpidem 5mg tab ORAL PRN (19:45)
[2017-07-01] MEDS ORDERED: Norco 5mg/325mg tab ORAL PRN (19:45)
[2017-07-01] MEDS ORDERED: LORazepam Inj 2mg/ml 1ml IV PRN (19:45)
[2017-07-01] MEDS ORDERED: Miralax 17gm pkt ORAL PRN (19:45)
[2017-07-01] MEDS ORDERED: Cephalexin 500mg cap ORAL ONE (19:45)
[2017-07-01] MEDS ORDERED: Mylanta II UD 30ml ORAL PRN (19:45)
[2017-07-01 20:30] VITALS: BP 144/93
[2017-07-01 20:45] VITALS: BP 134/80
[2017-07-01 22:06] LABS: LACTATE DEHYDROGENASE 164 U/L (81-234)
[2017-07-01 22:41] LABS: % IRON SATURATION 29 % (15-50); IRON 84 ug/dL (50-175); TOTAL IRON BINDING CAPACITY 290 ug/dL (250-450)
[2017-07-01] MEDS: DiphenhydrAMINE 50mg/ml Inj IVP PRN (22:41)
[2017-07-01] MEDS ORDERED: PHENobarbital Elixir 30mg/7.5ml ORAL SCH (23:00)
[2017-07-02] VITALS: BP 151/93
[2017-07-02 04:00] VITALS: BP 130/86
[2017-07-02] MEDS: Morphine Sulfate 4mg/ml Inj IVP PRN ×4 (04:19→19:35)
[2017-07-02 08:00] VITALS: BP 151/108
[2017-07-02 08:18] LABS: HEMOGLOBIN 9.2 G/DL (12.0-16.0); RED BLOOD COUNT 2.93 M/UL (4.20-5.40); WHITE BLOOD COUNT 12.1 K/UL (4.8-10.8)
[2017-07-02 08:19] LABS: BASOPHILS % (AUTO) 0.4 % (0.0-2.0); EOSINOPHILS % (AUTO) 0.9 % (0.0-3.0); HEMATOCRIT 27.8 % (37.0-47.0); LYMPHOCYTES % (AUTO) 20.6 % (20.0-45.0); MEAN CORPUSCULAR VOLUME 95 FL (80-99); MONOCYTES % (AUTO) 7.7 % (1.0-10.0); NEUTROPHILS % (AUTO) 70.4 % (45.0-75.0); PLATELET COUNT 369 K/UL (150-450); RED CELL DISTRIBUTION WIDTH 19.4 % (11.6-14.8)
[2017-07-02 08:28] LABS: ALANINE AMINOTRANSFERASE 7 U/L (12-78); ALBUMIN 2.7 G/DL (3.4-5.0); ANION GAP 8 mmol/L (5-15); ASPARTATE AMINO TRANSFERASE 18 U/L (15-37); BILIRUBIN,TOTAL 0.1 MG/DL (0.2-1.0); BLOOD UREA NITROGEN 36 mg/dL (7-18); CALCIUM 8.7 MG/DL (8.5-10.1); CARBON DIOXIDE 23 MMOL/L (21-32); CHLORIDE 104 MMOL/L (98-107); CREATININE 1.5 MG/DL (0.55-1.30); POTASSIUM 3.5 MMOL/L (3.5-5.1); SODIUM 135 MMOL/L (136-145)
[2017-07-02 08:29] LABS: ALBUMIN/GLOBULIN RATIO 0.6 (1.0-2.7); ALKALINE PHOSPHATASE 74 U/L (46-116)
[2017-07-02] MEDS ORDERED: Miralax 17gm pkt ORAL PRN ×3 (09:00→16:52)
--- NOTE | 2017-07-02 11:48 | GI Initial Consult Note ---
History of Present Illness General Date patient seen: Jul 02, 2017 Time patient seen: 11:35 Reason for Hospitalization: Syncope Referring physician: GABO ROSADO Reason for Consultation: ABDOMINAL PAIN Present Illness HPI 37-year-old female presents to ED for evaluation. Patient states she had a syncopal episode while visiting a family member in the hospital today. States he's been feeling weak. Vomiting with coffee-ground emesis. History of Crohn' s disease. Also complaining of abdominal pain. 8/10, sharp, nonradiating. Denies any blood in stool. Denies chest pain or shortness of breath. No other aggravating or relieving factors. Denies any other associated symptoms GI consulted for abdominal pain. Pt seen in tele, awake A&Ox4 NAD c/o of coffee grounds and abdominal pain, tender to touch all quadrants. Hx of Crohns with resection. The patient presents today with anemia s/p blood transfusion, elevated ESR, folate/B12 deficiency and mild troponin elevation. Per patient, she has been taking prednisone at home for her Crohns and currently does not have a GI doctor. CT AP was performed on 06/22/17 showed left ovarian cystic mass , see full report. Home Meds Active Scripts Capsaicin (CAPSAICIN) 42.5 Gm Cream..g., 1 APPLIC TP PRN for Nausea & Vomiting, #42.5 GM Prov:Marie Tomas 06/25/17 Ondansetron Odt* (ZOFRAN ODT*) 4 Mg Tab.rapdis, 4 MG ORAL Q6H Y for Nausea & Vomiting, #20 TAB Prov:Marie Tomas 06/25/17 Amlodipine Besylate* (AMLODIPINE BESYLATE*) 2.5 Mg Tablet, 2.5 MG ORAL DAILY, # 7 TAB 0 Refills Prov:Retino,Clairose M.D. 06/22/17 Nitrofurantoin Monohyd/M-Cryst* (MACROBID 100 MG*) 100 Mg Capsule, 100 MG ORAL EVERY 12 HOURS for 7 Days, #14 CAP Prov:Retino,Clairose M.D. 06/22/17 Clonidine Hcl* (CATAPRES*) 0.1 Mg Tablet, 0.1 MG ORAL Q8H, #90 TAB 0 Refills Prov:JUDE HERRERA M.D. 01/23/16 Phenobarbital* (PHENOBARBITAL*) 30 Mg Tablet, 90 MG ORAL DAILY for 30 Days, TAB 0 Refills Prov:JUDE HERRERA M.D. 01/23/16 Clonidine HCl (Clonidine HCl) 0.1 Mg Tab, 0.1 MG GT Q6HR Y, #30 TAB as needed SBP above 160 Prov:Herb RamiresLorrie escobedo NP 06/25/14 [Mesalamine] 400 MG CAP No Conflict Check, 1600 MG ORAL THREE TIMES A DAY, #90 CAP Prov:Lorrie Estevez NP (Vanchtein) 06/25/14 Reported Medications Diphenhydramine HCl (Diphenhydramine HCl) 50 Mg Cap, 50 MG ORAL THREE TIMES A DAY Y for Itching, CAP 06/22/14 Folic Acid* (FOLIC ACID*) 1 Mg Tablet, 1 MG ORAL DAILY, TAB 03/25/13 Prednisone* (PREDNISONE*) 20 Mg Tablet, 40 MG ORAL DAILY, #30 TAB 0 Refills 03/25/13 Discontinued Reported Medications Prednisone* (PREDNISONE*) 20 Mg Tablet, 60 MG ORAL DAILY, TAB 06/22/14 Phenobarbital* (PHENOBARBITAL*) 60 Mg Tablet, 0 ORAL DAILY, #30 TAB 0 Refills 03/25/13 Discontinued Scripts Prednisone* (PREDNISONE*) 20 Mg Tablet, 60 MG ORAL DAILY for 30 Days, TAB Prov:JUDE HERRERA M.D. 01/23/16 Pantoprazole* (PROTONIX*) 40 Mg Tablet.dr, 40 MG ORAL DAILY, #30 TAB Prov:Lorrie Estevez NP (Vanchtein) 06/25/14 Prednisone (Prednisone) 5 Mg Tab, 5 MG ORAL DAILY, #56 TAB 0 Refills 40 mg daily for 1 week 35 mg daily for 1 week 30 mg po daily for 1 week 25 mf po daily for 1 week 20 mg po daily for 1 week 15 mg po daily for week 10 mg po daily for 1 week 5 mg po daily for 1 week then dc Prov:Lorrie Estevez NP (Vanchtein) 06/25/14 Hydrocodone Bit/Acetaminophen 5-325* (NORCO 5-325*) 1 Each Tablet, 1 TAB ORAL Q6H Y for For Pain, #12 TAB 0 Refills Prov:NAHEED HARRY 04/02/14 Hydrocodone Bit/Acetaminophen 5-325* (NORCO 5-325*) 1 Each Tablet, 1 TAB ORAL Q6H Y for For Pain, #20 TAB Prov:LIAM MARTINEZ Alvaro 03/25/13 Med list reviewed/reconciled: Yes Allergies: Coded Allergies: No Known Allergies (Unverified , 01/23/16) Patient History History Provided By: Patient, Medical Record PMH Narrative Past Medical History: HTN, seizures Past Surgical History: none Pertinent Family History: none Social History: Denies: smoking, alcohol use, drug use Now: No Immunizations: UTD Reviewed Nursing Documentation: PMH: Agreed, PSxH: Agreed Nursing Documentation-PMH Past Medical History: No History, Except For Hx Cardiac Problems: Yes Hx Hypertension: Yes Hx Cancer: No Hx Neurological Problems: Yes Hx Seizures: Yes Review of Systems All Other Systems: negative except mentioned in HPI Physical Exam Vital Signs Date Time Temp Pulse Resp B/P (MAP) Pulse Ox O2 Delivery O2 Flow Rate FiO2 07/01/17 15:25 98.6 124 19 133/89 100 Room Air 98.6 07/02/17 08:00 2.0 Sp02 EP Interpretation: reviewed, normal Labs Laboratory Tests Test 07/01/17 16:14 07/01/17 17:44 07/02/17 06:40 White Blood Count 11.9 K/UL (4.8-10.8) H 12.1 K/UL (4.8-10.8) H Red Blood Count 2.17 M/UL (4.20-5.40) L 2.93 M/UL (4.20-5.40) L Hemoglobin 7.0 G/DL (12.0-16.0) L 9.2 G/DL (12.0-16.0) #L Hematocrit 22.1 % (37.0-47.0) L 27.8 % (37.0-47.0) L Mean Corpuscular Volume 102 FL (80-99) H 95 FL (80-99) Mean Corpuscular Hemoglobin 32.1 PG (27.0-31.0) H 31.4 PG (27.0-31.0) H Mean Corpuscular Hemoglobin Concent 31.5 G/DL (32.0-36.0) L 33.1 G/DL (32.0-36.0) Red Cell Distribution Width 20.2 % (11.6-14.8) H 19.4 % (11.6-14.8) H Platelet Count 452 K/UL (150-450) H 369 K/UL (150-450) Mean Platelet Volume 5.3 FL (6.5-10.1) L 5.4 FL (6.5-10.1) L Neutrophils (%) (Auto) % (45.0-75.0) 70.4 % (45.0-75.0) Lymphocytes (%) (Auto) % (20.0-45.0) 20.6 % (20.0-45.0) Monocytes (%) (Auto) % (1.0-10.0) 7.7 % (1.0-10.0) Eosinophils (%) (Auto) % (0.0-3.0) 0.9 % (0.0-3.0) Basophils (%) (Auto) % (0.0-2.0) 0.4 % (0.0-2.0) Differential Total Cells Counted 100 Neutrophils % (Manual) 70 % (45-75) Lymphocytes % (Manual) 30 % (20-45) Monocytes % (Manual) 0 % (1-10) L Eosinophils % (Manual) 0 % (0-3) Basophils % (Manual) 0 % (0-2) Band Neutrophils 0 % (0-8) Nucleated Red Blood Cells 1 /100 WBC Platelet Estimate Adequate Platelet Morphology Normal Polychromasia 1+ Hypochromasia 3+ Anisocytosis 3+ Macrocytosis 2+ Erythrocyte Sedimentation Rate 135 MM/HR (0-20) H Reticulocyte Count 3.8 % (0.0-2.0) H Urine Color Pale yellow Urine Appearance Cloudy Urine pH 6 (4.5-8.0) Urine Specific [place] 1.010 (1.005-1.035) Urine Protein 2+ (NEGATIVE) H Urine Glucose (UA) Negative (NEGATIVE) Urine Ketones Negative (NEGATIVE) Urine Occult Blood 4+ (NEGATIVE) H Urine Nitrite Negative (NEGATIVE) Urine Bilirubin Negative (NEGATIVE) Urine Urobilinogen Normal MG/DL (0.0-1.0) Urine Leukocyte Esterase 2+ (NEGATIVE) H Urine RBC 2-4 /HPF (0 - 2) H Urine WBC 0-2 /HPF (0 - 2) Urine Squamous Epithelial Cells Many /LPF (NONE/OCC) H Urine Bacteria Moderate /HPF (NONE) H Urine HCG, Qualitative Negative Sodium Level 133 MMOL/L (136-145) L 135 MMOL/L (136-145) L Potassium Level 3.6 MMOL/L (3.5-5.1) 3.5 MMOL/L (3.5-5.1) Chloride Level 101 MMOL/L (98-107) 104 MMOL/L (98-107) Carbon Dioxide Level 20 MMOL/L (21-32) L 23 MMOL/L (21-32) Anion Gap 12 mmol/L (5-15) 8 mmol/L (5-15) Blood Urea Nitrogen 59 mg/dL (7-18) H 36 mg/dL (7-18) H Creatinine 1.9 MG/DL (0.55-1.30) H 1.5 MG/DL (0.55-1.30) H Estimat Glomerular Filtration Rate 35.8 mL/min (>60) 46.9 mL/min (>60) Glucose Level 107 MG/DL (74-106) H 97 MG/DL (74-106) Calcium Level 9.0 MG/DL (8.5-10.1) 8.7 MG/DL (8.5-10.1) Iron Level 84 ug/dL (50-175) Total Iron Binding Capacity 290 ug/dL (250-450) Percent Iron Saturation 29 % (15-50) Unsaturated Iron Binding 206 ug/dL (112-346) Total Bilirubin 0.1 MG/DL (0.2-1.0) L 0.1 MG/DL (0.2-1.0) L Aspartate Amino Transf (AST/SGOT) 13 U/L (15-37) L 18 U/L (15-37) Alanine Aminotransferase (ALT/SGPT) 8 U/L (12-78) L 7 U/L (12-78) L Alkaline Phosphatase 81 U/L (46-116) 74 U/L (46-116) Lactate Dehydrogenase 164 U/L (81-234) Troponin I 0.107 ng/mL (0.000-0.056) Total Protein 7.3 G/DL (6.4-8.2) 6.9 G/DL (6.4-8.2) Albumin 3.3 G/DL (3.4-5.0) L 2.7 G/DL (3.4-5.0) L Globulin 4.0 g/dL 4.2 g/dL Albumin/Globulin Ratio 0.8 (1.0-2.7) L 0.6 (1.0-2.7) L Lipase 157 U/L (73-393) Vitamin B12 Level 177 PG/ML (193-986) L Folate 4.1 NG/ML (8.6-58.9) L Phenobarbital Level < 1.0 ug/mL (15-40) L Prothrombin Time 11.1 SEC (9.30-11.50) Prothromb Time International Ratio 1.1 (0.9-1.1) Activated Partial Thromboplast Time 25 SEC (23-33) Thyroid Stimulating Hormone (TSH) 9.828 uiU/mL (0.358-3.740) General Appearance: well appearing, no apparent distress, alert, thin Head: normocephalic EENT: PERRL/EOMI, normal ENT inspection Neck: supple Respiratory: normal breath sounds, no respiratory distress Cardiovascular: normal rate Gastrointestinal: normal inspection, non tender, soft, normal bowel sounds, non -distended, other - abdomainl tenderness Rectal: deferred Genitourinary: no CVA tenderness Musculoskeletal: normal inspection, back normal Neurologic: normal inspection, alert, oriented x3, responsive Psychiatric: normal inspection, judgement/insight normal, memory normal Skin: normal inspection, normal color, no rash, warm/dry, palpation normal, well hydrated Lymphatic: normal inspection, no adenopathy Current Medications Current Medications Medications (Trade) Dose Ordered Sig/Jasbir Route PRN Reason Start Time Stop Time Status Last Admin Dose Admin Acetaminophen (Tylenol) 650 mg Q4H PRN ORAL fever 07/01/17 19:45 07/31/17 19:44 Acetaminophen/ Hydrocodone Bitart ([place] 5/325) 1 tab Q6H PRN ORAL For [place]ate Pain (Scale 4-6) 07/01/17 19:45 07/08/17 19:44 07/02/17 06:10 Al Hydroxide/Mg Hydroxide (Mylanta II) 30 ml Q6H PRN ORAL dyspepsia 07/01/17 19:45 07/31/17 19:44 Amlodipine Besylate (Norvasc) 2.5 mg DAILY ORAL 07/02/17 09:00 08/01/17 08:59 07/02/17 08:35 Clonidine HCl (Catapres Tab) 0.1 mg Q6H PRN GT sbp more than 160 07/01/17 19:45 07/31/17 19:44 Dextrose (Dextrose 50%) STAT PRN IV Hypoglycemia 07/01/17 19:45 07/31/17 19:44 Diphenhydramine HCl (Benadryl) 50 mg Q6H PRN IVP Itching 07/01/17 21:45 07/31/17 21:44 07/01/17 22:41 Lorazepam (Ativan 2mg/ml 1ml) 0.5 mg Q4H PRN IV For Anxiety 07/01/17 19:45 07/08/17 19:44 Morphine Sulfate (Morphine Sulfate) 1 mg Q4H PRN IVP For Severe Pain (Scale 7-10) 07/01/17 19:45 07/08/17 19:44 07/02/17 08:36 Ondansetron HCl (Zofran ODT) 4 mg Q6H PRN ORAL Nausea & Vomiting 07/01/17 19:45 07/31/17 19:44 Ondansetron HCl (Zofran) 4 mg Q6H PRN IVP N/V IF UNABLE TO TOLERATE ORAL 07/01/17 19:45 07/31/17 19:44 07/02/17 06:57 Phenobarbital (PHENobarbital) 97.2 mg QHS ORAL 07/01/17 23:00 07/31/17 22:59 07/02/17 00:11 Polyethylene Glycol (Miralax) 17 gm Q24H PRN ORAL Constipation 07/02/17 09:00 08/01/17 08:59 Zolpidem Tartrate (Ambien) 5 mg HSPRN PRN ORAL Insomnia 07/01/17 19:45 07/08/17 19:44 GI: Plan Problems: (1) Coffee ground emesis (2) Anemia (3) Crohn's colitis Plan elevated ESR, fu CRP anemia work up reviewed >> B12/folate deficiency CT AP from 2/4/18 >> left ovarian cystic mass, see full report. OB stool r/o GI bleed start 6-MP 50mg + Solumedrol IV for Crohn's flagyl 500mg low residual / low fiber diet fu labs, T4 Discussed with Dr. Shah. Thank you for this patient referral, we will follow. Iraida Schaffer N.P. Jul 02, 2017 11:48
[2017-07-02 12:00] VITALS: BP 168/110
--- NOTE | 2017-07-02 12:07 | History and Physical ---
History of Present Illness General Date patient seen: Jul 02, 2017 Reason for Hospitalization: Syncope Present Illness HPI 37-year-old female presents to ED for evaluation of a syncopal episode while visiting a family member in the hospital today. States he's been feeling weak. Vomiting with coffee-ground emesis. History of Crohn's disease. Also complaining of abdominal pain. 8/10, sharp, nonradiating. Denies any blood in stool. Denies chest pain or shortness of breath. Pt was found to be anemic and admitted to telemetry for further work up. Allergies: Coded Allergies: No Known Allergies (Unverified , 01/23/16) Medication History Scheduled Amlodipine Besylate* (Amlodipine Besylate*), 2.5 MG ORAL DAILY Capsaicin (Capsaicin), 1 APPLIC TP PRN Clonidine Hcl* (Catapres*), 0.1 MG ORAL Q8H Folic Acid* (Folic Acid*), 1 MG ORAL DAILY, (Reported) Nitrofurantoin Monohyd/M-Cryst* (Macrobid 100 Mg*), 100 MG ORAL EVERY 12 HOURS Phenobarbital* (Phenobarbital*), 90 MG ORAL DAILY Prednisone* (Prednisone*), 60 MG ORAL DAILY, (Reported) [Mesalamine], 1,600 MG ORAL THREE TIMES A DAY Scheduled PRN Clonidine HCl (Clonidine HCl), 0.1 MG GT Q6HR PRN Diphenhydramine HCl (Diphenhydramine HCl), 50 MG ORAL THREE TIMES A DAY PRN for Itching, (Reported) Ondansetron Odt* (Zofran Odt*), 4 MG ORAL Q6H PRN for Nausea & Vomiting Discontinued Medications Hydrocodone Bit/Acetaminophen 5-325* ([place] 5-325*), 1 TAB ORAL Q6H PRN for For Pain Discontinued Reason: Therapy completed Hydrocodone Bit/Acetaminophen 5-325* ([place] 5-325*), 1 TAB ORAL Q6H PRN for For Pain Discontinued Reason: Therapy completed Pantoprazole* (Protonix*), 40 MG ORAL DAILY Discontinued Reason: Pt stopped taking med Phenobarbital* (Phenobarbital*), 0 ORAL DAILY, (Reported) Discontinued Reason: Therapy completed Prednisone (Prednisone), 5 MG ORAL DAILY Discontinued Reason: Therapy completed Prednisone* (Prednisone*), 60 MG ORAL DAILY, (Reported) Discontinued Reason: Therapy completed Prednisone* (Prednisone*), 60 MG ORAL DAILY Discontinued Reason: Therapy completed Patient History Healthcare decision maker Resuscitation status Full Code Advanced Directive on File No Past Medical/Surgical History Past Medical/Surgical History: (1) Crohn's colitis (2) Renal insufficiency (3) HTN (hypertension), benign Review of Systems Constitutional: Reports: malaise, weakness All Other Systems: negative except mentioned in HPI Physical Exam General Appearance: cachetic Lines, tubes and drains: peripheral HEENT: normocephalic, atraumatic Neck: non-tender, normal alignment Respiratory/Chest: chest wall non-tender, lungs clear Cardiovascular/Chest: normal peripheral pulses, normal rate Abdomen: normal bowel sounds Genitourinary/Rectal: normal genital exam, normal rectal exam Extremities: normal range of motion, non-tender 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 Last 24 Hour Vital Signs Date Time Temp Pulse Resp B/P (MAP) Pulse Ox O2 Delivery O2 Flow Rate FiO2 07/02/17 08:35 88 151/108 07/02/17 08:00 97 07/02/17 08:00 97.3 88 21 151/108 99 Nasal Cannula 2.0 07/02/17 07:59 98.4 07/02/17 04:00 97.0 98 18 130/86 100 Room Air 07/02/17 03:19 107 07/02/17 00:00 98.0 101 18 151/93 100 Room Air 07/01/17 23:24 102 07/01/17 21:00 98.4 110 21 134/80 100 Room Air 07/01/17 20:45 98.4 111 18 134/80 100 Room Air 98.4 07/01/17 20:30 98.4 111 16 144/93 99 Room Air 98.4 07/01/17 18:53 109 19 131/92 100 Room Air 07/01/17 16:56 98.6 07/01/17 15:33 117 12 133/89 100 Room Air 07/01/17 15:25 98.6 124 19 133/89 100 Room Air 98.6 Intake and Output 07/01/17 07/02/17 19:00 07:00 Intake Total 1000 ml 120 ml Balance 1000 ml 120 ml Intake Oral 0 ml 120 ml IV Total 1000 ml # Voids 2 Laboratory Tests Test 07/01/17 16:14 07/01/17 17:44 2/14/18 06:40 White Blood Count 11.9 K/UL (4.8-10.8) H 12.1 K/UL (4.8-10.8) H Red Blood Count 2.17 M/UL (4.20-5.40) L 2.93 M/UL (4.20-5.40) L Hemoglobin 7.0 G/DL (12.0-16.0) L 9.2 G/DL (12.0-16.0) #L Hematocrit 22.1 % (37.0-47.0) L 27.8 % (37.0-47.0) L Mean Corpuscular Volume 102 FL (80-99) H 95 FL (80-99) Mean Corpuscular Hemoglobin 32.1 PG (27.0-31.0) H 31.4 PG (27.0-31.0) H Mean Corpuscular Hemoglobin Concent 31.5 G/DL (32.0-36.0) L 33.1 G/DL (32.0-36.0) Red Cell Distribution Width 20.2 % (11.6-14.8) H 19.4 % (11.6-14.8) H Platelet Count 452 K/UL (150-450) H 369 K/UL (150-450) Mean Platelet Volume 5.3 FL (6.5-10.1) L 5.4 FL (6.5-10.1) L Neutrophils (%) (Auto) % (45.0-75.0) 70.4 % (45.0-75.0) Lymphocytes (%) (Auto) % (20.0-45.0) 20.6 % (20.0-45.0) Monocytes (%) (Auto) % (1.0-10.0) 7.7 % (1.0-10.0) Eosinophils (%) (Auto) % (0.0-3.0) 0.9 % (0.0-3.0) Basophils (%) (Auto) % (0.0-2.0) 0.4 % (0.0-2.0) Differential Total Cells Counted 100 Neutrophils % (Manual) 70 % (45-75) Lymphocytes % (Manual) 30 % (20-45) Monocytes % (Manual) 0 % (1-10) L Eosinophils % (Manual) 0 % (0-3) Basophils % (Manual) 0 % (0-2) Band Neutrophils 0 % (0-8) Nucleated Red Blood Cells 1 /100 WBC Platelet Estimate Adequate Platelet Morphology Normal Polychromasia 1+ Hypochromasia 3+ Anisocytosis 3+ Macrocytosis 2+ Erythrocyte Sedimentation Rate 135 MM/HR (0-20) H Reticulocyte Count 3.8 % (0.0-2.0) H Urine Color Pale yellow Urine Appearance Cloudy Urine pH 6 (4.5-8.0) Urine Specific Estill 1.010 (1.005-1.035) Urine Protein 2+ (NEGATIVE) H Urine Glucose (UA) Negative (NEGATIVE) Urine Ketones Negative (NEGATIVE) Urine Occult Blood 4+ (NEGATIVE) H Urine Nitrite Negative (NEGATIVE) Urine Bilirubin Negative (NEGATIVE) Urine Urobilinogen Normal MG/DL (0.0-1.0) Urine Leukocyte Esterase 2+ (NEGATIVE) H Urine RBC 2-4 /HPF (0 - 2) H Urine WBC 0-2 /HPF (0 - 2) Urine Squamous Epithelial Cells Many /LPF (NONE/OCC) H Urine Bacteria Moderate /HPF (NONE) H Urine HCG, Qualitative Negative Sodium Level 133 MMOL/L (136-145) L 135 MMOL/L (136-145) L Potassium Level 3.6 MMOL/L (3.5-5.1) 3.5 MMOL/L (3.5-5.1) Chloride Level 101 MMOL/L (98-107) 104 MMOL/L (98-107) Carbon Dioxide Level 20 MMOL/L (21-32) L 23 MMOL/L (21-32) Anion Gap 12 mmol/L (5-15) 8 mmol/L (5-15) Blood Urea Nitrogen 59 mg/dL (7-18) H 36 mg/dL (7-18) H Creatinine 1.9 MG/DL (0.55-1.30) H 1.5 MG/DL (0.55-1.30) H Estimat Glomerular Filtration Rate 35.8 mL/min (>60) 46.9 mL/min (>60) Glucose Level 107 MG/DL (74-106) H 97 MG/DL (74-106) Calcium Level 9.0 MG/DL (8.5-10.1) 8.7 MG/DL (8.5-10.1) Iron Level 84 ug/dL (50-175) Total Iron Binding Capacity 290 ug/dL (250-450) Percent Iron Saturation 29 % (15-50) Unsaturated Iron Binding 206 ug/dL (112-346) Total Bilirubin 0.1 MG/DL (0.2-1.0) L 0.1 MG/DL (0.2-1.0) L Aspartate Amino Transf (AST/SGOT) 13 U/L (15-37) L 18 U/L (15-37) Alanine Aminotransferase (ALT/SGPT) 8 U/L (12-78) L 7 U/L (12-78) L Alkaline Phosphatase 81 U/L (46-116) 74 U/L (46-116) Lactate Dehydrogenase 164 U/L (81-234) Troponin I 0.107 ng/mL (0.000-0.056) Total Protein 7.3 G/DL (6.4-8.2) 6.9 G/DL (6.4-8.2) Albumin 3.3 G/DL (3.4-5.0) L 2.7 G/DL (3.4-5.0) L Globulin 4.0 g/dL 4.2 g/dL Albumin/Globulin Ratio 0.8 (1.0-2.7) L 0.6 (1.0-2.7) L Lipase 157 U/L (73-393) Vitamin B12 Level 177 PG/ML (193-986) L Folate 4.1 NG/ML (8.6-58.9) L Phenobarbital Level < 1.0 ug/mL (15-40) L Prothrombin Time 11.1 SEC (9.30-11.50) Prothromb Time International Ratio 1.1 (0.9-1.1) Activated Partial Thromboplast Time 25 SEC (23-33) Thyroid Stimulating Hormone (TSH) 9.828 uiU/mL (0.358-3.740) Microbiology Date/Time Source Procedure Growth Status 07/01/17 16:14 Urine,Clean Catch Urine Culture - Preliminary Resulted Height (Feet): 4 Height (Inches): 11.00 Weight (Pounds): 100 Medications Current Medications Medications (Trade) Dose Ordered Sig/Jasbir Route PRN Reason Start Time Stop Time Status Last Admin Dose Admin Acetaminophen (Tylenol) 650 mg Q4H PRN ORAL fever 07/01/17 19:45 07/31/17 19:44 Acetaminophen/ Hydrocodone Bitart ([place] 5/325) 1 tab Q6H PRN ORAL For Modeate Pain (Scale 4-6) 07/01/17 19:45 07/08/17 19:44 07/02/17 06:10 Al Hydroxide/Mg Hydroxide (Mylanta II) 30 ml Q6H PRN ORAL dyspepsia 07/01/17 19:45 07/31/17 19:44 Amlodipine Besylate (Norvasc) 2.5 mg DAILY ORAL 07/02/17 09:00 08/01/17 08:59 07/02/17 08:35 Clonidine HCl (Catapres Tab) 0.1 mg Q6H PRN GT sbp more than 160 07/01/17 19:45 07/31/17 19:44 Cyanocobalamin (Vitamin B12) 1,000 mcg ONCE ONCE IM 07/02/17 12:15 07/02/17 12:16 Dextrose (Dextrose 50%) STAT PRN IV Hypoglycemia 07/01/17 19:45 07/31/17 19:44 Diphenhydramine HCl (Benadryl) 50 mg Q6H PRN IVP Itching 07/01/17 21:45 07/31/17 21:44 07/01/17 22:41 Folic Acid (Folate) 1 mg DAILY ORAL 07/03/17 09:00 08/02/17 08:59 Lorazepam (Ativan 2mg/ml 1ml) 0.5 mg Q4H PRN IV For Anxiety 07/01/17 19:45 07/08/17 19:44 Mercaptopurine (Purinethol) 50 mg DAILY ORAL 07/02/17 13:00 07/07/17 12:59 Methylprednisolone Sodium Succinate (Solu-MEDROL) 20 mg EVERY 8 HOURS IVP 07/02/17 14:00 08/01/17 13:59 Metronidazole 100 ml @ 100 mls/hr Q8HR IVPB 07/02/17 14:00 07/09/17 13:59 Morphine Sulfate (Morphine Sulfate) 1 mg Q4H PRN IVP For Severe Pain (Scale 7-10) 07/01/17 19:45 07/08/17 19:44 07/02/17 08:36 Ondansetron HCl (Zofran ODT) 4 mg Q6H PRN ORAL Nausea & Vomiting 07/01/17 19:45 07/31/17 19:44 Ondansetron HCl (Zofran) 4 mg Q6H PRN IVP N/V IF UNABLE TO TOLERATE ORAL 07/01/17 19:45 07/31/17 19:44 07/02/17 06:57 Pantoprazole (Protonix) 40 mg DAILY ORAL 07/03/17 09:00 08/02/17 08:59 Phenobarbital (PHENobarbital) 97.2 mg QHS ORAL 07/01/17 23:00 07/31/17 22:59 07/02/17 00:11 Polyethylene Glycol (Miralax) 17 gm Q24H PRN ORAL Constipation 07/02/17 09:00 08/01/17 08:59 Prednisone (predniSONE) 60 mg DAILY ORAL 07/03/17 09:00 08/02/17 08:59 Zolpidem Tartrate (Ambien) 5 mg HSPRN PRN ORAL Insomnia 07/01/17 19:45 07/08/17 19:44 Assessment/Plan Problem List: (1) Anemia ICD Codes: D64.9 - Anemia, unspecified SNOMED: 515340659 (2) Coffee ground emesis ICD Codes: K92.0 - Hematemesis SNOMED: 25852508, 457693649 (3) Crohn's colitis ICD Codes: K50.10 - Crohn's disease of large intestine without complications SNOMED: 20677708 (4) HTN (hypertension), benign ICD Codes: I10 - HTN (hypertension), benign SNOMED: 62460033 Assessment/Plan NPO IV fluids GI evaluation PRBC prn GABO DOLL Jul 02, 2017 12:07
[2017-07-02] MEDS ORDERED: Vitamin B12 1000mcg/ml Inj IM ONE (12:15)
[2017-07-02] MEDS ORDERED: Mercaptopurine 50mg tab ORAL SCH (13:00)
[2017-07-02] MEDS: DiphenhydrAMINE 50mg/ml Inj IVP PRN ×2 (13:16→19:34)
[2017-07-02] MEDS ORDERED: Solu-MEDROL 40mg Inj IVP SCH (14:00)
[2017-07-02 16:00] VITALS: BP 137/90
--- NOTE | 2017-07-02 16:24 | Cardiology Report ---
APPROVED REPORT EKG Measurement Heart [id number] Sinus tachycardia Right atrial enlargement Left ventricular hypertrophy with repolarization abnormality Abnormal ECG
[2017-07-02] MEDS ORDERED: LORazepam Inj 2mg/ml 1ml IV PRN (16:51)
[2017-07-02] MEDS ORDERED: Norco 5mg/325mg tab ORAL PRN (16:51)
[2017-07-02] MEDS ORDERED: Mylanta II UD 30ml ORAL PRN (16:51)
[2017-07-02] MEDS ORDERED: Zolpidem 5mg tab ORAL PRN (16:53)
[2017-07-02 20:00] VITALS: BP 146/100
[2017-07-02] MEDS: Solu-MEDROL 40mg Inj IVP SCH (21:03)
[2017-07-03] VITALS (7 sets, daily range): BP systolic 125–189; BP diastolic 87–110
[2017-07-03] MEDS: DiphenhydrAMINE 50mg/ml Inj IVP PRN ×4 (02:32→22:07)
[2017-07-03] MEDS: Morphine Sulfate 4mg/ml Inj IVP PRN ×4 (02:32→21:16)
[2017-07-03] MEDS: Solu-MEDROL 40mg Inj IVP SCH ×3 (05:27→21:16)
[2017-07-03 07:12] LABS: BASOPHILS % (AUTO) 0.2 % (0.0-2.0); HEMATOCRIT 24.5 % (37.0-47.0); HEMOGLOBIN 8.1 G/DL (12.0-16.0); LYMPHOCYTES % (AUTO) 14.8 % (20.0-45.0); MEAN CORPUSCULAR VOLUME 95 FL (80-99); MONOCYTES % (AUTO) 5.1 % (1.0-10.0); NEUTROPHILS % (AUTO) 79.8 % (45.0-75.0); PLATELET COUNT 384 K/UL (150-450); RED BLOOD COUNT 2.56 M/UL (4.20-5.40); RED CELL DISTRIBUTION WIDTH 20.1 % (11.6-14.8); WHITE BLOOD COUNT 10.6 K/UL (4.8-10.8)
[2017-07-03 07:16] LABS: ALANINE AMINOTRANSFERASE 6 U/L (12-78); ALBUMIN 2.6 G/DL (3.4-5.0); ALBUMIN/GLOBULIN RATIO 0.6 (1.0-2.7); ALKALINE PHOSPHATASE 78 U/L (46-116); ANION GAP 7 mmol/L (5-15); ASPARTATE AMINO TRANSFERASE 12 U/L (15-37); BILIRUBIN,TOTAL 0.2 MG/DL (0.2-1.0); BLOOD UREA NITROGEN 27 mg/dL (7-18); CALCIUM 8.8 MG/DL (8.5-10.1); CARBON DIOXIDE 25 MMOL/L (21-32); CHLORIDE 103 MMOL/L (98-107); CREATININE 1.2 MG/DL (0.55-1.30); POTASSIUM 3.6 MMOL/L (3.5-5.1); SODIUM 135 MMOL/L (136-145)
--- NOTE | 2017-07-03 08:06 | Pulmonology Progress Note ---
Assessment/Plan Assessment/Plan ASSESSMENT Syncope, prob due to anemia of acute blood loss Anemia of acute blood loss, requiring blood transfusion anemia of B 12 and folate deficiency Coffee ground emesis Crohn colitis bacteriuria BRIJESH on CRI single episode of elevated troponin , likely troponin leak 2 to BRIJESH hypothyroidism ( newly diagnosed) HTN seizure disorder complex L ovarian cystic mass ( on CT 06/22/17) PLAN OF CARE [facility] floor IVF GI follows on Solumedrol and 6-MP Abx low residue diet as tolerated a/emetic prn GI prophylaxis bowel regimen CT A/P on 06/22 with large ovarian cystic mass Check pelvic US, check CA -125 consider GUN eval Monitor HH transfuse prn, goal to keep Hg above 7 B 12 and Folate added Check stool OB BP management with CCB, and Clonidine prn urine cx with GNB ( small colony count), and GPO, likely contamination , no urinary complaints, likely asymptomatic bacteriuria Venous Duplex BLE negative seizure precautions, continue Phenobarbital , no evidence of seizure while in the hospital Monitor renal parameters, lytes, creat down prior renal US with evidence of echogenic kidneys c/w medical renal disease free T4 low, high TSH , start levothyroxine low dose, check TFT in 1 month troponin this am WNL, no cardiac complaints, tele was negative, single episode of minimally elevated troponin likely due to BRIJESH, troponin leak case discussed and evaluated by supervising physician Subjective Allergies: Coded Allergies: No Known Allergies (Unverified , 01/23/16) Subjective tolerated diet, no n/v/ + abdominal pain, diffuse, 7/10 c/o constipation Objective Last 24 Hour Vital Signs Date Time Temp Pulse Resp B/P (MAP) Pulse Ox O2 Delivery O2 Flow Rate FiO2 07/03/17 04:00 98.2 89 18 125/91 100 07/03/17 00:15 97.9 92 18 140/87 100 Room Air 07/03/17 00:00 100 Room Air 07/02/17 20:00 97.7 100 18 146/100 100 Room Air 07/02/17 20:00 100 Room Air 07/02/17 16:00 97.8 96 21 137/90 98 Nasal Cannula 2.0 07/02/17 14:04 168/110 07/02/17 12:00 98.0 90 22 168/110 99 Nasal Cannula 2.0 07/02/17 12:00 94 07/02/17 08:35 88 151/108 Intake and Output 07/02/17 07/03/17 19:00 07:00 Intake Total 800 ml Balance 800 ml Intake Oral 700 ml IV Total 100 ml # Voids 2 1 General Appearance: no acute distress, other - A/A/O x 4 AA female in NAD HEENT: normocephalic, atraumatic, anicteric Respiratory/Chest: lungs clear, no respiratory distress, no accessory muscle use Cardiovascular: normal peripheral pulses, normal rate Abdomen: normal bowel sounds - soft, mild diffused tenderness, no rebound, no guarding Extremities: no edema, pedal pulses normal Neurologic/Psychiatric: no motor/sensory deficits, alert, oriented x 3, responsive, normal mood/affect Musculoskeletal: normal muscle bulk Microbiology Date/Time Source Procedure Growth Status 07/01/17 16:14 Urine,Clean Catch Urine Culture - Preliminary Resulted Laboratory Tests 07/03/17 06:20: White Blood Count 10.6, Red Blood Count 2.56L, Hemoglobin 8.1L, Hematocrit 24.5L , Mean Corpuscular Volume 95, Mean Corpuscular Hemoglobin 31.6H, Mean Corpuscular Hemoglobin Concent 33.2, Red Cell Distribution Width 20.1H, Platelet Count 384, Mean Platelet Volume 5.4L, Neutrophils (%) (Auto) 79.8H, Lymphocytes (%) (Auto) 14.8L, Monocytes (%) (Auto) 5.1, Eosinophils (%) (Auto) 0.0, Basophils (%) (Auto) 0.2, Sodium Level 135L, Potassium Level 3.6, Chloride Level 103, Carbon Dioxide Level 25, Anion Gap 7, Blood Urea Nitrogen 27H, Creatinine 1.2, Estimat Glomerular Filtration Rate > 60, Glucose Level 115H, Calcium Level 8.8, Total Bilirubin 0.2, Aspartate Amino Transf (AST/SGOT) 12L, Alanine Aminotransferase (ALT/SGPT) 6L, Alkaline Phosphatase 78, Troponin I 0.043, C-Reactive Protein, Quantitative 5.1H, Total Protein 7.0, Albumin 2.6L, Globulin 4.4, Albumin/Globulin Ratio 0.6L, Free Thyroxine 0.68L Current Medications Medications (Trade) Dose Ordered Sig/Jasbir Route PRN Reason Start Time Stop Time Status Last Admin Dose Admin Acetaminophen (Tylenol) 650 mg Q4H PRN ORAL fever 2/14/18 16:50 07/31/17 16:49 Acetaminophen/ Hydrocodone Bitart ([place] 5/325) 1 tab Q6H PRN ORAL For Modeate Pain (Scale 4-6) 07/02/17 16:51 07/08/17 16:50 Al Hydroxide/Mg Hydroxide (Mylanta II) 30 ml Q6H PRN ORAL dyspepsia 07/02/17 16:51 07/31/17 16:50 Amlodipine Besylate (Norvasc) 2.5 mg DAILY ORAL 07/03/17 09:00 08/01/17 08:59 Clonidine HCl (Catapres Tab) 0.1 mg Q6H PRN ORAL sbp more than 160 07/03/17 08:02 08/02/17 08:01 Cyanocobalamin (Vitamin B12) 1,000 mcg ONCE ONCE IM 07/03/17 09:00 07/03/17 09:01 Dextrose (Dextrose 50%) STAT PRN IV Hypoglycemia 07/02/17 16:51 07/31/17 16:50 Diphenhydramine HCl (Benadryl) 50 mg Q6H PRN IVP Itching 07/02/17 16:51 07/31/17 16:50 07/03/17 02:32 Folic Acid (Folate) 1 mg DAILY ORAL 07/03/17 09:00 08/02/17 08:59 Lorazepam (Ativan 2mg/ml 1ml) 0.5 mg Q4H PRN IV For Anxiety 07/02/17 16:51 07/08/17 16:50 Mercaptopurine (Purinethol) 50 mg DAILY ORAL 07/03/17 09:00 07/07/17 12:59 Methylprednisolone Sodium Succinate (Solu-MEDROL) 20 mg EVERY 8 HOURS IVP 07/02/17 22:00 08/01/17 13:59 07/03/17 05:27 Metronidazole 100 ml @ 100 mls/hr Q8HR IVPB 07/02/17 22:00 07/09/17 13:59 07/03/17 05:26 Morphine Sulfate (Morphine Sulfate) 1 mg Q4H PRN IVP For Severe Pain (Scale 7-10) 07/02/17 16:52 07/08/17 16:51 07/03/17 02:32 Ondansetron HCl (Zofran ODT) 4 mg Q6H PRN ORAL Nausea & Vomiting 07/02/17 16:52 07/31/17 16:51 Ondansetron HCl (Zofran) 4 mg Q6H PRN IVP N/V IF UNABLE TO TOLERATE ORAL 07/02/17 19:45 07/31/17 19:44 Pantoprazole (Protonix) 40 mg DAILY ORAL 07/03/17 09:00 08/02/17 08:59 Phenobarbital (PHENobarbital) 97.2 mg QHS ORAL 07/02/17 21:00 07/31/17 22:59 07/02/17 22:30 Polyethylene Glycol (Miralax) 17 gm Q24H PRN ORAL Constipation 07/02/17 16:52 08/01/17 16:51 Zolpidem Tartrate (Ambien) 5 mg HSPRN PRN ORAL Insomnia 07/02/17 16:53 07/08/17 16:52 [facility]orrie NP Jul 03, 2017 08:06
[2017-07-03] MEDS: Mercaptopurine 50mg tab ORAL SCH (08:20)
[2017-07-03] MEDS ORDERED: Vitamin B12 1000mcg/ml Inj IM ONE (09:00)
--- NOTE | 2017-07-03 10:50 | GI Progress Note ---
Assessment/Plan Problems: (1) Coffee ground emesis ICD Codes: K92.0 - Hematemesis SNOMED: 09425137, 115375811 (2) Crohn's colitis ICD Codes: K50.10 - Crohn's disease of large intestine without complications SNOMED: 75786095 (3) Anemia ICD Codes: D64.9 - Anemia, unspecified SNOMED: 632577672 (4) Abdominal pain ICD Codes: R10.9 - Abdominal pain SNOMED: 66887834 Status: stable, progressing Status Narrative Discussed with Dr. Shah. Assessment/Plan active crohn's flare anemia work up reviewed >> B12/folate deficiency CT AP from 06/22/17 >> left ovarian cystic mass, see full report. low free T4/elevated TSH suggestive of hypothyroidism >> defer mgmt to primary OB stool r/o GI bleed start 6-MP 50mg Solumedrol IV >> to be transitioned to prednisone at discharge flagyl 500mg low residual / low fiber diet fu labs Subjective Subjective feels better constipated Objective Last 24 Hour Vital Signs Date Time Temp Pulse Resp B/P (MAP) Pulse Ox O2 Delivery O2 Flow Rate FiO2 07/03/17 10:00 144/93 07/03/17 08:21 189/110 07/03/17 08:21 93 189/110 07/03/17 08:00 98.2 93 20 189/110 99 07/03/17 04:00 98.2 89 18 125/91 100 07/03/17 00:15 97.9 92 18 140/87 100 Room Air 07/03/17 00:00 100 Room Air 07/02/17 20:00 97.7 100 18 146/100 100 Room Air 07/02/17 20:00 100 Room Air 07/02/17 16:00 97.8 96 21 137/90 98 Nasal Cannula 2.0 07/02/17 14:04 168/110 07/02/17 12:00 98.0 90 22 168/110 99 Nasal Cannula 2.0 07/02/17 12:00 94 Intake and Output 07/02/17 07/03/17 19:00 07:00 Intake Total 800 ml Balance 800 ml Intake Oral 700 ml IV Total 100 ml # Voids 2 1 Laboratory Tests Test 07/03/17 06:20 White Blood Count 10.6 K/UL (4.8-10.8) Red Blood Count 2.56 M/UL (4.20-5.40) L Hemoglobin 8.1 G/DL (12.0-16.0) L Hematocrit 24.5 % (37.0-47.0) L Mean Corpuscular Volume 95 FL (80-99) Mean Corpuscular Hemoglobin 31.6 PG (27.0-31.0) H Mean Corpuscular Hemoglobin Concent 33.2 G/DL (32.0-36.0) Red Cell Distribution Width 20.1 % (11.6-14.8) H Platelet Count 384 K/UL (150-450) Mean Platelet Volume 5.4 FL (6.5-10.1) L Neutrophils (%) (Auto) 79.8 % (45.0-75.0) H Lymphocytes (%) (Auto) 14.8 % (20.0-45.0) L Monocytes (%) (Auto) 5.1 % (1.0-10.0) Eosinophils (%) (Auto) 0.0 % (0.0-3.0) Basophils (%) (Auto) 0.2 % (0.0-2.0) Sodium Level 135 MMOL/L (136-145) L Potassium Level 3.6 MMOL/L (3.5-5.1) Chloride Level 103 MMOL/L (98-107) Carbon Dioxide Level 25 MMOL/L (21-32) Anion Gap 7 mmol/L (5-15) Blood Urea Nitrogen 27 mg/dL (7-18) H Creatinine 1.2 MG/DL (0.55-1.30) Estimat Glomerular Filtration Rate > 60 mL/min (>60) Glucose Level 115 MG/DL (74-106) H Calcium Level 8.8 MG/DL (8.5-10.1) Soluble Transferrin Receptor Pending Total Bilirubin 0.2 MG/DL (0.2-1.0) Aspartate Amino Transf (AST/SGOT) 12 U/L (15-37) L Alanine Aminotransferase (ALT/SGPT) 6 U/L (12-78) L Alkaline Phosphatase 78 U/L (46-116) Troponin I 0.043 ng/mL (0.000-0.056) C-Reactive Protein, Quantitative 5.1 mg/dL (0.00-0.90) H Total Protein 7.0 G/DL (6.4-8.2) Albumin 2.6 G/DL (3.4-5.0) L Globulin 4.4 g/dL Albumin/Globulin Ratio 0.6 (1.0-2.7) L CA 125 Antigen Pending Methylmalonic Acid Pending Homocystine Pending Free Thyroxine 0.68 NG/DL (0.76-1.46) L Height (Feet): 4 Height (Inches): 11.00 Weight (Pounds): 100 General Appearance: WD/WN, no apparent distress, alert, thin Cardiovascular: normal rate Respiratory/Chest: normal breath sounds, no respiratory distress Abdominal Exam: normal bowel sounds, non tender, soft Extremities: normal range of motion, non-tender Iraida Schaffer N.P. Jul 03, 2017 10:50
[2017-07-03] MEDS ORDERED: Fleet's Enema 133ml RECTAL ONE (11:00)
--- NOTE | 2017-07-03 15:11 | Diagnostic Imaging Report ---
Indication:Lower abdominal and pelvic pain Technique: Grayscale and duplex Doppler imaging of the pelvis performed utilizing a transabdominal scan and endovaginal scan. Comparison: None Findings: There are small bilateral ovarian cysts present. A dominant cyst measuring 4.2 cm noted in the left ovary demonstrated with an imperceptible wall, good through transmission and no internal echoes. The ovaries demonstrate dopplerable blood flow and appear normal. The uterus is normal in appearance. Endometrial stripe is 2.6 mm. Uterus measures 5.1 x 3.3 x 2.4 cm. Right ovary 2.8 x 1.4 x 1.9 cm. Left ovary 4.6 x 5 x 2.3 cm. IMPRESSION: Dominant left ovarian cyst measuring 4.2 cm. Recommend follow-up at 6 weeks
[2017-07-03] MEDS ORDERED: Tubing Blood Filter IV ONE (17:40)
[2017-07-03] MEDS ORDERED: Tubing IV Secondary IV ONE (17:40)
--- NOTE | 2017-07-03 20:46 | Consultation ---
DATE OF CONSULTATION: 07/03/2017 HEMATOLOGY/ONCOLOGY CONSULTATION CONSULTING PHYSICIAN: Moses Hall M.D. REQUESTING PHYSICIAN: Kathy Sawyer M.D. REASON FOR CONSULTATION: Evaluation of anemia. IDENTIFYING DATA: Dear Dr. Sawyer: The patient is a pleasant 37-year-old female with past medical history significant for Crohn disease, hypertension, and BRIJESH. The patient presents in the hospital with a syncopal episode and has been getting . She was admitted in the hospital, has been feeling weak with coffee-ground nausea as well as vomiting, history of Crohn disease. The patient has had in the past, has been on treatment as well, found to be anemic with hemoglobin of less than 8, has been seen by GI Service. Again, the patient has been feeling weak and noted to be alert and oriented x4 with abdominal pain at the time of admission. CT scan completed approximately a week ago, which showed a left ovarian cystic mass and Hematology/Oncology service was consulted for further evaluation and treatment. PAST MEDICAL HISTORY: Crohn disease, hypertension, and abdominal pain. PAST SURGICAL HISTORY: None known. ALLERGIES: No known drug allergies. MEDICATIONS: Valproic acid, Macrobid, phenobarbital, prednisone, mesalamine. REVIEW OF SYSTEMS: CONSTITUTIONAL: No fevers, chills, or night sweats. SKIN: No rashes, bumps, or itching. HEENT: No headache, hearing or vision changes. BREASTS: No lumps, pain, or discharge. PULMONARY: No cough, sputum, or shortness of breath. GASTROINTESTINAL: No nausea, vomiting, or diarrhea. GENITOURINARY: No dysuria, frequency, or urgency. MUSCULOSKELETAL: No joint swelling, muscle pain, or trauma. PHYSICAL EXAMINATION: VITAL SIGNS: Reviewed. GENERAL: No distress. PULMONARY: Decreased breath sounds. CARDIOVASCULAR: Regular rate. No S3 or S4. ABDOMEN: Soft, nontender, and nondistended. EXTREMITIES: No cyanosis, swelling, or edema. LABORATORY DATA: WBC of 12.1, hemoglobin 7, hematocrit 22, MCV of 102, platelet count 152,000. ESR was . Reticulocyte count is 9. BUN 36 and creatinine 1.5. TIBC of 290, B12 177. Folic acid less than 1. ASSESSMENT AND RECOMMENDATIONS: 1. Cystic ovarian mass. Obtain at this time, a transvaginal ultrasound to further evaluate. 2. Anemia due to underlying folic acid deficiency. The patient started on folic acid. 3. Anemia due to B12 deficiency, likely related to history of Crohn's disease. Administer B12 once a month. 4. Macrocytosis, likely secondary to underlying B12 versus folic acid deficiency. Obtain a methylmalonic and homocysteine level. 5. Anemia due to upper gastrointestinal bleed. 6. Crohn's colitis. 7. Hypertension. Moses Hall M.D. DR: JAYDON JOB#: [id number] CC:
[2017-07-04] VITALS (8 sets, daily range): BP systolic 133–160; BP diastolic 83–104
[2017-07-04] MEDS: DiphenhydrAMINE 50mg/ml Inj IVP PRN ×3 (04:13→17:56)
[2017-07-04] MEDS: Morphine Sulfate 4mg/ml Inj IVP PRN ×4 (04:14→20:27)
[2017-07-04] MEDS: Solu-MEDROL 40mg Inj IVP SCH ×3 (05:34→20:26)
[2017-07-04] MEDS: Levothyroxine 25mcg tab ORAL SCH (06:10)
[2017-07-04 07:28] LABS: HEMATOCRIT 23.1 % (37.0-47.0); HEMOGLOBIN 7.7 G/DL (12.0-16.0); MEAN CORPUSCULAR VOLUME 95 FL (80-99); PLATELET COUNT 413 K/UL (150-450); RED BLOOD COUNT 2.42 M/UL (4.20-5.40); RED CELL DISTRIBUTION WIDTH 20.6 % (11.6-14.8); WHITE BLOOD COUNT 10.7 K/UL (4.8-10.8)
[2017-07-04 07:52] LABS: ANION GAP 7 mmol/L (5-15); BLOOD UREA NITROGEN 22 mg/dL (7-18); CALCIUM 8.7 MG/DL (8.5-10.1); CARBON DIOXIDE 25 MMOL/L (21-32); CHLORIDE 105 MMOL/L (98-107); CREATININE 1.3 MG/DL (0.55-1.30); POTASSIUM 2.9 MMOL/L (3.5-5.1); SODIUM 137 MMOL/L (136-145)
--- NOTE | 2017-07-04 08:38 | Pulmonology Progress Note ---
Assessment/Plan Assessment/Plan ASSESSMENT Syncope, prob due to anemia of acute blood loss Anemia of acute blood loss, requiring blood transfusion anemia of B 12 and folate deficiency Coffee ground emesis Crohn disease bacteriuria BRIJESH on CRI single episode of elevated troponin , likely troponin leak 2 to BRIJESH hypothyroidism ( newly diagnosed) HTN seizure disorder L ovarian cyst hypokalemia PLAN OF CARE MS floor IVF GI follows on Solumedrol and 6-MP Abx low residue diet as tolerated a/emetic prn GI prophylaxis bowel regimen CT A/P on 06/22 with large ovarian cystic mass pelvic US with L ovarian, cyst CA -125 -WNL likely physiological, repeat US in 6 wks as recommended by radiology Monitor HH, transfuse 1 u PRBC today , B 12 and Folate added Check stool OB-pending BP management with CCB, and Clonidine prn urine cx with GNB ( small colony count), and GPO, likely contamination , no urinary complaints, likely asymptomatic bacteriuria Venous Duplex BLE negative seizure precautions, continue Phenobarbital , no evidence of seizure while in the hospital Monitor renal parameters, lytes, creat down prior renal US with evidence of echogenic kidneys c/w medical renal disease free T4 low, high TSH , start levothyroxine low dose, check TFT in 1 month last troponin WNL, no cardiac complaints, tele was negative, single episode of minimally elevated troponin likely due to BRIJESH, troponin leak replace K case discussed and evaluated by supervising physician Subjective Allergies: Coded Allergies: No Known Allergies (Unverified , 01/23/16) All Systems: reviewed and negative except above Subjective tolerated diet, no n/v/ + abdominal pain, diffuse, 11/25, intermitently ontrolled with analgersics with trend down K low Objective Last 24 Hour Vital Signs Date Time Temp Pulse Resp B/P (MAP) Pulse Ox O2 Delivery O2 Flow Rate FiO2 07/04/17 04:00 98.3 91 18 142/97 100 Room Air 07/04/17 00:00 98.1 89 18 136/95 100 Room Air 07/03/17 20:00 98.2 108 18 138/90 99 Room Air 07/03/17 16:00 98.1 104 20 141/88 96 07/03/17 16:00 Room Air 07/03/17 12:00 97.7 91 20 140/87 100 07/03/17 12:00 Room Air 07/03/17 10:00 144/93 Intake and Output 07/03/17 07/04/17 19:00 07:00 Intake Total 480 ml 480 ml Balance 480 ml 480 ml Intake Oral 480 ml 480 ml # Voids 6 3 Microbiology Date/Time Source Procedure Growth Status 07/01/17 16:14 Urine,Clean Catch Urine Culture - Final Escherichia Coli Mixed Gram Positive Organism Complete Laboratory Tests 07/04/17 06:50: White Blood Count 10.7, Red Blood Count 2.42L, Hemoglobin 7.7L, Hematocrit 23.1L , Mean Corpuscular Volume 95, Mean Corpuscular Hemoglobin 31.6H, Mean Corpuscular Hemoglobin Concent 33.2, Red Cell Distribution Width 20.6H, Platelet Count 413, Mean Platelet Volume 5.0L, Neutrophils (%) (Auto) , Lymphocytes (%) (Auto) , Monocytes (%) (Auto) , Eosinophils (%) (Auto) , Basophils (%) (Auto) , Neutrophils % (Manual) [Pending], Lymphocytes % (Manual) [Pending], Platelet Estimate [Pending], Platelet Morphology [Pending], Sodium Level 137, Potassium Level 2.9L, Chloride Level 105, Carbon Dioxide Level 25, Anion Gap 7, Blood Urea Nitrogen 22H, Creatinine 1.3, Estimat Glomerular Filtration Rate 55.3, Glucose Level 144H, Calcium Level 8.7 Current Medications Medications (Trade) Dose Ordered Sig/Jasbir Route PRN Reason Start Time Stop Time Status Last Admin Dose Admin Acetaminophen (Tylenol) 650 mg Q4H PRN ORAL fever 07/02/17 16:50 07/31/17 16:49 Acetaminophen/ Hydrocodone Bitart ([place] 5/325) 1 tab Q6H PRN ORAL For Modeate Pain (Scale 4-6) 07/02/17 16:51 07/08/17 16:50 Al Hydroxide/Mg Hydroxide (Mylanta II) 30 ml Q6H PRN ORAL dyspepsia 07/02/17 16:51 07/31/17 16:50 Amlodipine Besylate (Norvasc) 2.5 mg DAILY ORAL 07/03/17 09:00 08/01/17 08:59 07/03/17 08:21 Clonidine HCl (Catapres Tab) 0.1 mg Q6H PRN ORAL sbp more than 160 07/03/17 08:02 08/02/17 08:01 07/03/17 08:21 Dextrose (Dextrose 50%) STAT PRN IV Hypoglycemia 07/02/17 16:51 07/31/17 16:50 Diphenhydramine HCl (Benadryl) 50 mg Q6H PRN IVP Itching 07/02/17 16:51 07/31/17 16:50 07/04/17 04:13 Folic Acid (Folate) 1 mg DAILY ORAL 07/03/17 09:00 08/02/17 08:59 07/03/17 08:20 Levothyroxine Sodium (Synthroid) 25 mcg DAILY@0630 ORAL 07/04/17 06:30 08/03/17 06:29 07/04/17 06:10 Lorazepam (Ativan 2mg/ml 1ml) 0.5 mg Q4H PRN IV For Anxiety 07/02/17 16:51 07/08/17 16:50 Mercaptopurine (Purinethol) 50 mg DAILY ORAL 07/03/17 09:00 07/07/17 12:59 07/03/17 08:20 Methylprednisolone Sodium Succinate (Solu-MEDROL) 20 mg EVERY 8 HOURS IVP 07/02/17 22:00 08/01/17 13:59 07/04/17 05:34 Metronidazole 100 ml @ 100 mls/hr Q8HR IVPB 07/02/17 22:00 07/09/17 13:59 07/04/17 05:34 Morphine Sulfate (Morphine Sulfate) 1 mg Q4H PRN IVP For Severe Pain (Scale 7-10) 07/02/17 16:52 07/08/17 16:51 07/04/17 04:14 Ondansetron HCl (Zofran ODT) 4 mg Q6H PRN ORAL Nausea & Vomiting 07/02/17 16:52 07/31/17 16:51 Ondansetron HCl (Zofran) 4 mg Q6H PRN IVP N/V IF UNABLE TO TOLERATE ORAL 07/02/17 19:45 07/31/17 19:44 Pantoprazole (Protonix) 40 mg DAILY ORAL 07/03/17 09:00 08/02/17 08:59 07/03/17 08:21 Phenobarbital (PHENobarbital) 97.2 mg QHS ORAL 07/02/17 21:00 07/31/17 22:59 07/03/17 21:15 Polyethylene Glycol (Miralax) 17 gm Q24H PRN ORAL Constipation 07/02/17 16:52 08/01/17 16:51 Zolpidem Tartrate (Ambien) 5 mg HSPRN PRN ORAL Insomnia 07/02/17 16:53 07/08/17 16:52 Herb ([facility])Lorrie NP Jul 04, 2017 08:38
[2017-07-04] MEDS ORDERED: Potassium Chloride 40 MEQ in Sodium Chloride 500ML 550 ML IVPB ONE (10:00)
[2017-07-04] MEDS: Mercaptopurine 50mg tab ORAL SCH (10:20)
--- NOTE | 2017-07-04 10:30 | GI Progress Note ---
Assessment/Plan Problems: (1) Coffee ground emesis ICD Codes: K92.0 - Hematemesis SNOMED: 05743244, 964400758 (2) Crohn's colitis ICD Codes: K50.10 - Crohn's disease of large intestine without complications SNOMED: 14982166 (3) Anemia ICD Codes: D64.9 - Anemia, unspecified SNOMED: 491866613 (4) Abdominal pain ICD Codes: R10.9 - Abdominal pain SNOMED: 87102809 Status: progressing Status Narrative Discussed with Dr. Shah. Assessment/Plan active crohn's flare anemia work up reviewed >> B12/folate deficiency CT AP from 06/22/17 >> left ovarian cystic mass, see full report. low free T4/elevated TSH suggestive of hypothyroidism >> defer mgmt to primary OB stool r/o GI bleed, will consider endoscopy pending result and drop of Hgb prn transfusion start 6-MP 50mg Solumedrol IV >> to be transitioned to prednisone at discharge flagyl 500mg low residual / low fiber diet fu labs outpatient colonoscopy Subjective Subjective feels better constipated abdominal pain still present Objective Last 24 Hour Vital Signs Date Time Temp Pulse Resp B/P (MAP) Pulse Ox O2 Delivery O2 Flow Rate FiO2 07/04/17 10:20 100 133/91 07/04/17 08:00 98.4 100 20 133/91 100 Room Air 07/04/17 04:00 98.3 91 18 142/97 100 Room Air 07/04/17 00:00 98.1 89 18 136/95 100 Room Air 07/03/17 20:00 98.2 108 18 138/90 99 Room Air 07/03/17 16:00 98.1 104 20 141/88 96 07/03/17 16:00 Room Air 07/03/17 12:00 97.7 91 20 140/87 100 07/03/17 12:00 Room Air Intake and Output 07/03/17 07/04/17 19:00 07:00 Intake Total 480 ml 480 ml Balance 480 ml 480 ml Intake Oral 480 ml 480 ml # Voids 6 3 Laboratory Tests Test 07/04/17 06:50 White Blood Count 10.7 K/UL (4.8-10.8) Red Blood Count 2.42 M/UL (4.20-5.40) L Hemoglobin 7.7 G/DL (12.0-16.0) L Hematocrit 23.1 % (37.0-47.0) L Mean Corpuscular Volume 95 FL (80-99) Mean Corpuscular Hemoglobin 31.6 PG (27.0-31.0) H Mean Corpuscular Hemoglobin Concent 33.2 G/DL (32.0-36.0) Red Cell Distribution Width 20.6 % (11.6-14.8) H Platelet Count 413 K/UL (150-450) Mean Platelet Volume 5.0 FL (6.5-10.1) L Neutrophils (%) (Auto) % (45.0-75.0) Lymphocytes (%) (Auto) % (20.0-45.0) Monocytes (%) (Auto) % (1.0-10.0) Eosinophils (%) (Auto) % (0.0-3.0) Basophils (%) (Auto) % (0.0-2.0) Differential Total Cells Counted 100 Neutrophils % (Manual) 85 % (45-75) H Lymphocytes % (Manual) 12 % (20-45) L Monocytes % (Manual) 3 % (1-10) Eosinophils % (Manual) 0 % (0-3) Basophils % (Manual) 0 % (0-2) Band Neutrophils 0 % (0-8) Platelet Estimate Adequate Platelet Morphology Normal Polychromasia 1+ Hypochromasia 1+ Anisocytosis 2+ Sodium Level 137 MMOL/L (136-145) Potassium Level 2.9 MMOL/L (3.5-5.1) L Chloride Level 105 MMOL/L (98-107) Carbon Dioxide Level 25 MMOL/L (21-32) Anion Gap 7 mmol/L (5-15) Blood Urea Nitrogen 22 mg/dL (7-18) H Creatinine 1.3 MG/DL (0.55-1.30) Estimat Glomerular Filtration Rate 55.3 mL/min (>60) Glucose Level 144 MG/DL (74-106) H Calcium Level 8.7 MG/DL (8.5-10.1) Height (Feet): 4 Height (Inches): 11.00 Weight (Pounds): 100 General Appearance: WD/WN, no apparent distress, alert, thin Cardiovascular: normal rate Respiratory/Chest: normal breath sounds, no respiratory distress Abdominal Exam: normal bowel sounds, non tender, soft Extremities: normal range of motion, non-tender Iraida Schaffer N.P. Jul 04, 2017 10:30
[2017-07-04] MEDS ORDERED: D5 1/2NS 1000ml IV ONE (14:13)
--- NOTE | 2017-07-04 14:58 | Pulmonology Progress Note ---
Assessment/Plan Assessment/Plan ASSESSMENT Syncope, prob due to anemia of acute blood loss Anemia of acute blood loss, requiring blood transfusion anemia of B 12 and folate deficiency Coffee ground emesis Crohn colitis bacteriuria BRIJESH on CRI single episode of elevated troponin , likely troponin leak 2 to BRIJESH hypothyroidism ( newly diagnosed) HTN seizure disorder L ovarian cyst hypokalemia PLAN OF CARE MS floor IVF GI follows on Solumedrol and 6-MP Abx low residue diet as tolerated a/emetic prn GI prophylaxis bowel regimen CT A/P on 06/22 with large ovarian cystic mass pelvic US with L ovarian, cyst CA -125 -WNL likely physiological, repeat US in 6 wks as recommended by radiology Monitor HH, transfuse 1 u PRBC today , B 12 and Folate added Check stool OB-pending BP management with CCB, and Clonidine prn urine cx with E coli ( small colony count), and GPO, likely contamination , no urinary complaints, likely asymptomatic bacteriuria Venous Duplex BLE negative seizure precautions, continue Phenobarbital , no evidence of seizure while in the hospital Monitor renal parameters, lytes, creat down prior renal US with evidence of echogenic kidneys c/w medical renal disease free T4 low, high TSH , start levothyroxine low dose, check TFT in 1 month last troponin WNL, no cardiac complaints, tele was negative, single episode of minimally elevated troponin likely due to BRIJESH, troponin leak replace K , check K and Mg in am case discussed and evaluated by supervising physician Subjective Allergies: Coded Allergies: No Known Allergies (Unverified , 01/23/16) Subjective tolerated diet, no n/v/ + abdominal pain, intermittently ontrolled with analgesics HH with trend down K low Objective Last 24 Hour Vital Signs Date Time Temp Pulse Resp B/P (MAP) Pulse Ox O2 Delivery O2 Flow Rate FiO2 07/04/17 12:00 98.1 96 20 144/103 100 Room Air 07/04/17 10:20 100 133/91 07/04/17 08:00 98.4 100 20 133/91 100 Room Air 07/04/17 04:00 98.3 91 18 142/97 100 Room Air 07/04/17 00:00 98.1 89 18 136/95 100 Room Air 07/03/17 20:00 98.2 108 18 138/90 99 Room Air 07/03/17 16:00 98.1 104 20 141/88 96 07/03/17 16:00 Room Air Intake and Output 07/03/17 07/04/17 19:00 07:00 Intake Total 480 ml 480 ml Balance 480 ml 480 ml Intake Oral 480 ml 480 ml # Voids 6 3 Objective General Appearance: no acute distress, other - A/A/O x 4 AA female in NAD HEENT: normocephalic, atraumatic, anicteric Respiratory/Chest: lungs clear, no respiratory distress, no accessory muscle use Cardiovascular: normal peripheral pulses, normal rate Abdomen: normal bowel sounds - soft, mild diffused tenderness, no rebound, no guarding Extremities: no edema, pedal pulses normal Neurologic/Psychiatric: no motor/sensory deficits, alert, oriented x 3, responsive, normal mood/affect Musculoskeletal: normal muscle bulk Microbiology Date/Time Source Procedure Growth Status 07/01/17 16:14 Urine,Clean Catch Urine Culture - Final Escherichia Coli Mixed Gram Positive Organism Complete Laboratory Tests 07/04/17 06:50: White Blood Count 10.7, Red Blood Count 2.42L, Hemoglobin 7.7L, Hematocrit 23.1L , Mean Corpuscular Volume 95, Mean Corpuscular Hemoglobin 31.6H, Mean Corpuscular Hemoglobin Concent 33.2, Red Cell Distribution Width 20.6H, Platelet Count 413, Mean Platelet Volume 5.0L, Neutrophils (%) (Auto) , Lymphocytes (%) (Auto) , Monocytes (%) (Auto) , Eosinophils (%) (Auto) , Basophils (%) (Auto) , Differential Total Cells Counted 100, Neutrophils % ( Manual) 85H, Lymphocytes % (Manual) 12L, Monocytes % (Manual) 3, Eosinophils % ( Manual) 0, Basophils % (Manual) 0, Band Neutrophils 0, Platelet Estimate Adequate, Platelet Morphology Normal, Polychromasia 1+, Hypochromasia 1+, Anisocytosis 2+, Sodium Level 137, Potassium Level 2.9L, Chloride Level 105, Carbon Dioxide Level 25, Anion Gap 7, Blood Urea Nitrogen 22H, Creatinine 1.3, Estimat Glomerular Filtration Rate 55.3, Glucose Level 144H, Calcium Level 8.7 Current Medications Medications (Trade) Dose Ordered Sig/Jasbir Route PRN Reason Start Time Stop Time Status Last Admin Dose Admin Acetaminophen (Tylenol) 650 mg Q4H PRN ORAL fever 07/02/17 16:50 07/31/17 16:49 Acetaminophen/ Hydrocodone Bitart ([place] 5/325) 1 tab Q6H PRN ORAL For Modeate Pain (Scale 4-6) 07/02/17 16:51 07/08/17 16:50 Al Hydroxide/Mg Hydroxide (Mylanta II) 30 ml Q6H PRN ORAL dyspepsia 07/02/17 16:51 07/31/17 16:50 Amlodipine Besylate (Norvasc) 2.5 mg DAILY ORAL 07/03/17 09:00 08/01/17 08:59 07/04/17 10:20 Clonidine HCl (Catapres Tab) 0.1 mg Q6H PRN ORAL sbp more than 160 07/03/17 08:02 08/02/17 08:01 07/03/17 08:21 Dextrose (Dextrose 50%) STAT PRN IV Hypoglycemia 07/02/17 16:51 07/31/17 16:50 Diphenhydramine HCl (Benadryl) 50 mg Q6H PRN IVP Itching 07/02/17 16:51 07/31/17 16:50 07/04/17 10:18 Folic Acid (Folate) 1 mg DAILY ORAL 07/03/17 09:00 08/02/17 08:59 07/04/17 10:20 Levothyroxine Sodium (Synthroid) 25 mcg DAILY@0630 ORAL 07/04/17 06:30 08/03/17 06:29 07/04/17 06:10 Lorazepam (Ativan 2mg/ml 1ml) 0.5 mg Q4H PRN IV For Anxiety 07/02/17 16:51 07/08/17 16:50 Mercaptopurine (Purinethol) 50 mg DAILY ORAL 07/03/17 09:00 07/07/17 12:59 07/04/17 10:20 Methylprednisolone Sodium Succinate (Solu-MEDROL) 20 mg EVERY 8 HOURS IVP 07/02/17 22:00 08/01/17 13:59 07/04/17 14:23 Metronidazole 100 ml @ 100 mls/hr Q8HR IVPB 07/02/17 22:00 07/09/17 13:59 07/04/17 14:23 Morphine Sulfate (Morphine Sulfate) 1 mg Q4H PRN IVP For Severe Pain (Scale 7-10) 07/02/17 16:52 07/08/17 16:51 07/04/17 14:24 Ondansetron HCl (Zofran ODT) 4 mg Q6H PRN ORAL Nausea & Vomiting 07/02/17 16:52 07/31/17 16:51 Ondansetron HCl (Zofran) 4 mg Q6H PRN IVP N/V IF UNABLE TO TOLERATE ORAL 07/02/17 19:45 07/31/17 19:44 Pantoprazole (Protonix) 40 mg DAILY ORAL 07/03/17 09:00 08/02/17 08:59 07/04/17 10:20 Phenobarbital (PHENobarbital) 97.2 mg QHS ORAL 07/02/17 21:00 07/31/17 22:59 07/03/17 21:15 Polyethylene Glycol (Miralax) 17 gm Q24H PRN ORAL Constipation 07/02/17 16:52 08/01/17 16:51 Zolpidem Tartrate (Ambien) 5 mg HSPRN PRN ORAL Insomnia 07/02/17 16:53 07/08/17 16:52 Herb ([facility])Lorrie NP Jul 04, 2017 14:57
[2017-07-05] VITALS (7 sets, daily range): BP systolic 140–186; BP diastolic 80–120
[2017-07-05] MEDS: Morphine Sulfate 4mg/ml Inj IVP PRN ×5 (00:38→23:55)
[2017-07-05] MEDS: DiphenhydrAMINE 50mg/ml Inj IVP PRN ×4 (00:42→23:54)
--- NOTE | 2017-07-05 03:45 | General Progress Note ---
Assessment/Plan Status: stable Assessment/Plan 1. Cystic ovarian mass. --> Obtain at this time, a transvaginal ultrasound to further evaluate. --> S/P Pelvic US revealing bilateral cysts, dominant cyst measuring 4.2cm in left ovary 2. Anemia due to underlying folic acid deficiency. --> The patient started on folic acid. --> S/P Blood transfusion --> Monitor levels and make sure no acute drops. 3. Anemia due to B12 deficiency, likely related to history of Crohn's disease. --> Administer B12 once a month. 4. Macrocytosis, likely secondary to underlying B12 versus folic acid deficiency. --> Obtain a methylmalonic and homocysteine level. --> Homocysteine 25 5. Anemia due to upper gastrointestinal bleed. --> ++Occult blood. Consider GI evaluation. --> Anemia workup reviewed. --> Iron 84, TIBC 290, Folate 4.1, Vit b12 177 --> S/P Transfusion 6. Crohn's colitis. 7. Hypertension. Subjective Date patient seen: Jul 04, 2017 Constitutional: Denies: no symptoms, chills, diaphoresis, fever, malaise, weakness, other HEENT: Denies: no symptoms, eye pain, blurred vision, tearing, double vision, ear pain, ear discharge, nose pain, nose congestion, throat pain, throat swelling, mouth pain, mouth swelling, other Cardiovascular: Denies: no symptoms, chest pain, edema, irregular heart rate, lightheadedness, palpitations, syncope, other Respiratory: Denies: no symptoms, cough, orthopnea, shortness of breath, SOB with excertion, SOB at rest, sputum, stridor, wheezing, other Gastrointestinal/Abdominal: Denies: no symptoms, abdomen distended, abdominal pain, black stools, tarry stools, blood in stool, constipated, diarrhea, difficulty swallowing, nausea, poor appetite, poor fluid intake, rectal bleeding , vomiting, other Genitourinary: Denies: no symptoms, burning, discharge, frequency, flank pain, hematuria, incontinence, pain, urgency, other Hematologic/Lymphatic: Reports: anemia Allergies: Coded Allergies: No Known Allergies (Unverified , 01/23/16) Subjective S/P PRBC. No adverse events. Objective Last 24 Hour Vital Signs Date Time Temp Pulse Resp B/P (MAP) Pulse Ox O2 Delivery O2 Flow Rate FiO2 07/05/17 00:00 97.8 98 18 140/80 98 Room Air 07/04/17 20:00 96.8 103 18 149/83 98 Room Air 07/04/17 17:59 150/102 07/04/17 17:44 160/104 07/04/17 17:43 160/104 07/04/17 16:00 98.3 94 20 149/97 100 Room Air 07/04/17 12:00 98.1 96 20 144/103 100 Room Air 07/04/17 10:20 100 133/91 07/04/17 08:00 98.4 100 20 133/91 100 Room Air 07/04/17 04:00 98.3 91 18 142/97 100 Room Air Intake and Output 07/04/17 07/05/17 19:00 07:00 Intake Total 480 ml 100 ml Balance 480 ml 100 ml Intake Oral 480 ml IV Total 100 ml # Voids 3 Laboratory Tests 07/04/17 06:50: White Blood Count 10.7, Red Blood Count 2.42L, Hemoglobin 7.7L, Hematocrit 23.1L , Mean Corpuscular Volume 95, Mean Corpuscular Hemoglobin 31.6H, Mean Corpuscular Hemoglobin Concent 33.2, Red Cell Distribution Width 20.6H, Platelet Count 413, Mean Platelet Volume 5.0L, Neutrophils (%) (Auto) , Lymphocytes (%) (Auto) , Monocytes (%) (Auto) , Eosinophils (%) (Auto) , Basophils (%) (Auto) , Differential Total Cells Counted 100, Neutrophils % ( Manual) 85H, Lymphocytes % (Manual) 12L, Monocytes % (Manual) 3, Eosinophils % ( Manual) 0, Basophils % (Manual) 0, Band Neutrophils 0, Platelet Estimate Adequate, Platelet Morphology Normal, Polychromasia 1+, Hypochromasia 1+, Anisocytosis 2+, Sodium Level 137, Potassium Level 2.9L, Chloride Level 105, Carbon Dioxide Level 25, Anion Gap 7, Blood Urea Nitrogen 22H, Creatinine 1.3, Estimat Glomerular Filtration Rate 55.3, Glucose Level 144H, Calcium Level 8.7 Height (Feet): 4 Height (Inches): 11.00 Weight (Pounds): 100 General Appearance: no apparent distress Neck: supple Cardiovascular: normal rate Respiratory/Chest: decreased breath sounds Abdomen: non tender, soft Moses Hall Jul 05, 2017 03:45
[2017-07-05] MEDS: Levothyroxine 25mcg tab ORAL SCH (05:38)
[2017-07-05] MEDS: Solu-MEDROL 40mg Inj IVP SCH ×3 (05:38→21:06)
[2017-07-05 07:33] LABS: BASOPHILS % (AUTO) 0.2 % (0.0-2.0); HEMATOCRIT 29.2 % (37.0-47.0); HEMOGLOBIN 9.7 G/DL (12.0-16.0); LYMPHOCYTES % (AUTO) 18.6 % (20.0-45.0); MEAN CORPUSCULAR VOLUME 94 FL (80-99); MONOCYTES % (AUTO) 5.9 % (1.0-10.0); NEUTROPHILS % (AUTO) 75.3 % (45.0-75.0); PLATELET COUNT 487 K/UL (150-450); RED CELL DISTRIBUTION WIDTH 19.8 % (11.6-14.8); WHITE BLOOD COUNT 11.8 K/UL (4.8-10.8)
[2017-07-05 07:52] LABS: ANION GAP 11 mmol/L (5-15); BLOOD UREA NITROGEN 24 mg/dL (7-18); CARBON DIOXIDE 21 MMOL/L (21-32); CHLORIDE 106 MMOL/L (98-107); CREATININE 1.4 MG/DL (0.55-1.30); POTASSIUM 3.8 MMOL/L (3.5-5.1); SODIUM 138 MMOL/L (136-145)
[2017-07-05] MEDS: Mercaptopurine 50mg tab ORAL SCH (08:00)
--- NOTE | 2017-07-05 10:19 | General Progress Note ---
Assessment/Plan Problem List: (1) Abdominal pain ICD Codes: R10.9 - Abdominal pain SNOMED: 71809279 (2) HTN (hypertension), benign ICD Codes: I10 - HTN (hypertension), benign SNOMED: 33930277 (3) Crohn's colitis ICD Codes: K50.10 - Crohn's disease of large intestine without complications SNOMED: 63003473 (4) Anemia ICD Codes: D64.9 - Anemia, unspecified SNOMED: 570560626 Assessment/Plan ? active crohn's flare anemia work up reviewed >> B12/folate deficiency CT AP from 06/22/17 >> left ovarian cystic mass, see full report. low free T4/elevated TSH suggestive of hypothyroidism >> defer mgmt to primary OB stool r/o GI bleed, will consider endoscopy pending result and drop of Hgb prn transfusion 6-MP 50mg Solumedrol IV >> to be transitioned to prednisone at discharge flagyl 500mg low residual / low fiber diet fu labs outpatient colonoscopy check c.diff Subjective ROS Limited/Unobtainable: Yes Allergies: Coded Allergies: No Known Allergies (Unverified , 01/23/16) Subjective no event Objective Last 24 Hour Vital Signs Date Time Temp Pulse Resp B/P (MAP) Pulse Ox O2 Delivery O2 Flow Rate FiO2 07/05/17 08:15 98.5 110 23 186/120 98 Room Air 07/05/17 08:01 108 177/124 07/05/17 08:00 177/124 07/05/17 04:00 97.5 95 18 144/85 100 Room Air 07/05/17 00:00 97.8 98 18 140/80 98 Room Air 07/04/17 20:00 96.8 103 18 149/83 98 Room Air 07/04/17 17:59 150/102 07/04/17 17:44 160/104 07/04/17 17:43 160/104 07/04/17 16:00 98.3 94 20 149/97 100 Room Air 07/04/17 12:00 98.1 96 20 144/103 100 Room Air 07/04/17 10:20 100 133/91 Intake and Output 07/04/17 07/05/17 19:00 07:00 Intake Total 480 ml 700 ml Balance 480 ml 700 ml Intake Oral 480 ml 500 ml IV Total 200 ml # Voids 3 3 Laboratory Tests 07/05/17 05:20: White Blood Count 11.8H, Red Blood Count 3.10L, Hemoglobin 9.7L, Hematocrit 29.2L, Mean Corpuscular Volume 94, Mean Corpuscular Hemoglobin 31.2H, Mean Corpuscular Hemoglobin Concent 33.2, Red Cell Distribution Width 19.8H, Platelet Count 487H, Mean Platelet Volume 4.8L, Neutrophils (%) (Auto) 75.3H, Lymphocytes (%) (Auto) 18.6L, Monocytes (%) (Auto) 5.9, Eosinophils (%) (Auto) 0.0, Basophils (%) (Auto) 0.2, Sodium Level 138, Potassium Level 3.8, Chloride Level 106, Carbon Dioxide Level 21, Anion Gap 11, Blood Urea Nitrogen 24H, Creatinine 1.4H, Estimat Glomerular Filtration Rate 50.7, Glucose Level 109H, Calcium Level 9.0, Magnesium Level 2.1 Height (Feet): 4 Height (Inches): 11.00 Weight (Pounds): 100 General Appearance: alert EENT: normal ENT inspection Neck: supple Cardiovascular: normal rate Respiratory/Chest: lungs clear Abdomen: normal bowel sounds, non tender, soft Extremities: non-tender CHRISTIAN ALEJANDRE Jul 05, 2017 10:19
--- NOTE | 2017-07-05 12:59 | Pulmonology Progress Note ---
Assessment/Plan Assessment/Plan ASSESSMENT Syncope, prob due to anemia of acute blood loss Anemia of acute blood loss, requiring blood transfusion anemia of B 12 and folate deficiency Coffee ground emesis Crohn colitis bacteriuria BRIJESH on CRI single episode of elevated troponin , likely troponin leak 2 to BRIJESH hypothyroidism ( newly diagnosed) HTN seizure disorder L ovarian cyst hypokalemia PLAN OF CARE MS floor IVF GI follows on Solumedrol and 6-MP Abx low residue diet as tolerated a/emetic prn GI prophylaxis bowel regimen CT A/P on 06/22 with large ovarian cystic mass pelvic US with L ovarian, cyst CA -125 -WNL proabbly physiological cyst , repeat TV US in 6 wks as recommended by radiology Monitor HH, HH better after transfusion B 12 and Folate added stool OB- positive BP management with CCB, and Clonidine prn urine cx with E coli ( small colony count), and GPO, likely contamination , no urinary complaints, likely asymptomatic bacteriuria Venous Duplex BLE negative seizure precautions, continue Phenobarbital , no evidence of seizure while in the hospital Monitor renal parameters, lytes, creat down prior renal US with evidence of echogenic kidneys c/w medical renal disease free T4 low, high TSH , started on levothyroxine low dose, check TFT in 1 month last troponin WNL, no cardiac complaints, tele was negative, single episode of minimally elevated troponin likely due to BRIJESH, troponin leak K and Mg ok dc plan for tomorrow if cleared by GI case discussed and evaluated by supervising physician Subjective Allergies: Coded Allergies: No Known Allergies (Unverified , 01/23/16) Subjective tolerated diet, no n/v/ + intermittent abdominal pain, s/p blood transfusion, HH better, mild leucocytosis, afebrile K low Objective Last 24 Hour Vital Signs Date Time Temp Pulse Resp B/P (MAP) Pulse Ox O2 Delivery O2 Flow Rate FiO2 07/05/17 10:30 98.2 102 20 144/82 98 Room Air 07/05/17 08:15 98.5 110 23 186/120 98 Room Air 07/05/17 08:01 108 177/124 07/05/17 08:00 177/124 07/05/17 04:00 97.5 95 18 144/85 100 Room Air 07/05/17 00:00 97.8 98 18 140/80 98 Room Air 07/04/17 20:00 96.8 103 18 149/83 98 Room Air 07/04/17 17:59 150/102 07/04/17 17:44 160/104 07/04/17 17:43 160/104 07/04/17 16:00 98.3 94 20 149/97 100 Room Air Intake and Output 07/04/17 07/05/17 19:00 07:00 Intake Total 480 ml 700 ml Balance 480 ml 700 ml Intake Oral 480 ml 500 ml IV Total 200 ml # Voids 3 3 Objective General Appearance: no acute distress, other - A/A/O x 4 AA female in NAD HEENT: normocephalic, atraumatic, anicteric Respiratory/Chest: lungs clear, no respiratory distress, no accessory muscle use Cardiovascular: normal peripheral pulses, normal rate Abdomen: normal bowel sounds - soft, mild diffused tenderness, no rebound, no guarding Extremities: no edema, pedal pulses normal Neurologic/Psychiatric: no motor/sensory deficits, alert, oriented x 3, responsive, normal mood/affect Musculoskeletal: normal muscle bulk Laboratory Tests 07/05/17 05:20: White Blood Count 11.8H, Red Blood Count 3.10L, Hemoglobin 9.7L, Hematocrit 29.2L, Mean Corpuscular Volume 94, Mean Corpuscular Hemoglobin 31.2H, Mean Corpuscular Hemoglobin Concent 33.2, Red Cell Distribution Width 19.8H, Platelet Count 487H, Mean Platelet Volume 4.8L, Neutrophils (%) (Auto) 75.3H, Lymphocytes (%) (Auto) 18.6L, Monocytes (%) (Auto) 5.9, Eosinophils (%) (Auto) 0.0, Basophils (%) (Auto) 0.2, Sodium Level 138, Potassium Level 3.8, Chloride Level 106, Carbon Dioxide Level 21, Anion Gap 11, Blood Urea Nitrogen 24H, Creatinine 1.4H, Estimat Glomerular Filtration Rate 50.7, Glucose Level 109H, Calcium Level 9.0, Magnesium Level 2.1 Current Medications Medications (Trade) Dose Ordered Sig/Jasbir Route PRN Reason Start Time Stop Time Status Last Admin Dose Admin Acetaminophen (Tylenol) 650 mg Q4H PRN ORAL fever 07/02/17 16:50 07/31/17 16:49 Acetaminophen/ Hydrocodone Bitart ([place] 5/325) 1 tab Q6H PRN ORAL For Modeate Pain (Scale 4-6) 07/02/17 16:51 07/08/17 16:50 Al Hydroxide/Mg Hydroxide (Mylanta II) 30 ml Q6H PRN ORAL dyspepsia 07/02/17 16:51 07/31/17 16:50 Amlodipine Besylate (Norvasc) 2.5 mg DAILY ORAL 07/03/17 09:00 08/01/17 08:59 07/05/17 08:01 Clonidine HCl (Catapres Tab) 0.1 mg Q6H PRN ORAL sbp more than 160 07/03/17 08:02 08/02/17 08:01 07/05/17 08:00 Dextrose (Dextrose 50%) STAT PRN IV Hypoglycemia 07/02/17 16:51 07/31/17 16:50 Diphenhydramine HCl (Benadryl) 50 mg Q6H PRN IVP Itching 07/02/17 16:51 07/31/17 16:50 07/05/17 08:26 Folic Acid (Folate) 1 mg DAILY ORAL 07/03/17 09:00 08/02/17 08:59 07/05/17 08:00 Levothyroxine Sodium (Synthroid) 25 mcg DAILY@0630 ORAL 07/04/17 06:30 08/03/17 06:29 07/05/17 05:38 Lorazepam (Ativan 2mg/ml 1ml) 0.5 mg Q4H PRN IV For Anxiety 07/02/17 16:51 07/08/17 16:50 Mercaptopurine (Purinethol) 50 mg DAILY ORAL 07/03/17 09:00 07/07/17 12:59 07/05/17 08:00 Methylprednisolone Sodium Succinate (Solu-MEDROL) 20 mg EVERY 8 HOURS IVP 07/02/17 22:00 08/01/17 13:59 07/05/17 05:38 Metronidazole 100 ml @ 100 mls/hr Q8HR IVPB 07/02/17 22:00 07/09/17 13:59 07/05/17 05:38 Morphine Sulfate (Morphine Sulfate) 1 mg Q4H PRN IVP For Severe Pain (Scale 7-10) 07/02/17 16:52 07/08/17 16:51 07/05/17 11:26 Ondansetron HCl (Zofran ODT) 4 mg Q6H PRN ORAL Nausea & Vomiting 07/02/17 16:52 07/31/17 16:51 Ondansetron HCl (Zofran) 4 mg Q6H PRN IVP N/V IF UNABLE TO TOLERATE ORAL 07/02/17 19:45 07/31/17 19:44 Pantoprazole (Protonix) 40 mg DAILY ORAL 07/03/17 09:00 08/02/17 08:59 07/05/17 08:01 Phenobarbital (PHENobarbital) 97.2 mg QHS ORAL 07/02/17 21:00 07/31/17 22:59 07/04/17 20:26 Polyethylene Glycol (Miralax) 17 gm Q24H PRN ORAL Constipation 07/02/17 16:52 08/01/17 16:51 Zolpidem Tartrate (Ambien) 5 mg HSPRN PRN ORAL Insomnia 07/02/17 16:53 07/08/17 16:52 [facility]iresnew [facility] center[facility]or[facility] Rubalcava NP Jul 05, 2017 12:59
[2017-07-06] VITALS: BP 150/103
[2017-07-06 04:00] VITALS: BP 151/101
[2017-07-06 05:57] LABS: BASOPHILS % (AUTO) 0.1 % (0.0-2.0); HEMATOCRIT 28.6 % (37.0-47.0); HEMOGLOBIN 9.5 G/DL (12.0-16.0); LYMPHOCYTES % (AUTO) 17.4 % (20.0-45.0); MEAN CORPUSCULAR VOLUME 95 FL (80-99); MONOCYTES % (AUTO) 5.7 % (1.0-10.0); NEUTROPHILS % (AUTO) 76.8 % (45.0-75.0); PLATELET COUNT 481 K/UL (150-450); RED BLOOD COUNT 3.03 M/UL (4.20-5.40); RED CELL DISTRIBUTION WIDTH 20.5 % (11.6-14.8); WHITE BLOOD COUNT 11.5 K/UL (4.8-10.8)
[2017-07-06] MEDS: DiphenhydrAMINE 50mg/ml Inj IVP PRN ×2 (06:02→12:05)
[2017-07-06] MEDS: Levothyroxine 25mcg tab ORAL SCH (06:02)
[2017-07-06] MEDS: Solu-MEDROL 40mg Inj IVP SCH (06:02)
[2017-07-06] MEDS: Morphine Sulfate 4mg/ml Inj IVP PRN ×2 (06:03→10:21)
[2017-07-06 06:26] LABS: ALANINE AMINOTRANSFERASE < 6 U/L (12-78); ALBUMIN 2.7 G/DL (3.4-5.0); ALBUMIN/GLOBULIN RATIO 0.6 (1.0-2.7); ALKALINE PHOSPHATASE 72 U/L (46-116); ANION GAP 10 mmol/L (5-15); ASPARTATE AMINO TRANSFERASE 11 U/L (15-37); BILIRUBIN,TOTAL 0.2 MG/DL (0.2-1.0); BLOOD UREA NITROGEN 21 mg/dL (7-18); CALCIUM 8.4 MG/DL (8.5-10.1); CARBON DIOXIDE 21 MMOL/L (21-32); CHLORIDE 104 MMOL/L (98-107); CREATININE 1.4 MG/DL (0.55-1.30); POTASSIUM 3.4 MMOL/L (3.5-5.1); SODIUM 135 MMOL/L (136-145)
[2017-07-06 08:00] VITALS: BP 143/94
--- NOTE | 2017-07-06 08:02 | General Progress Note ---
Assessment/Plan Problem List: (1) Abdominal pain ICD Codes: R10.9 - Abdominal pain SNOMED: 86339082 (2) HTN (hypertension), benign ICD Codes: I10 - HTN (hypertension), benign SNOMED: 19077921 (3) Crohn's colitis ICD Codes: K50.10 - Crohn's disease of large intestine without complications SNOMED: 48453329 (4) Anemia ICD Codes: D64.9 - Anemia, unspecified SNOMED: 189450804 Assessment/Plan ? active crohn's flare anemia work up reviewed >> B12/folate deficiency CT AP from 06/22/17 >> left ovarian cystic mass, see full report. low free T4/elevated TSH suggestive of hypothyroidism >> defer mgmt to primary prn transfusion 6-MP 50mg Solumedrol IV >> changed to po prednisone 40 mg flagyl 500mg low residual / low fiber diet fu labs outpatient colonoscopy check c.diff Subjective ROS Limited/Unobtainable: Yes Allergies: Coded Allergies: No Known Allergies (Unverified , 01/23/16) Subjective no event Objective Last 24 Hour Vital Signs Date Time Temp Pulse Resp B/P (MAP) Pulse Ox O2 Delivery O2 Flow Rate FiO2 07/06/17 04:42 174/110 07/06/17 04:00 100 Room Air 07/06/17 04:00 97.5 80 20 151/101 100 07/06/17 00:00 97.4 94 20 150/103 100 07/06/17 00:00 100 Room Air 07/05/17 20:00 98.5 92 20 99 07/05/17 20:00 99 Room Air 07/05/17 19:00 98.5 92 20 160/110 99 07/05/17 16:57 172/114 07/05/17 16:15 97.9 71 21 172/114 97 Room Air 07/05/17 12:00 98.3 102 22 158/98 98 Room Air 07/05/17 10:30 98.2 102 20 144/82 98 Room Air 07/05/17 08:15 98.5 110 23 186/120 98 Room Air 07/05/17 08:01 108 177/124 Intake and Output 07/05/17 07/06/17 19:00 07:00 Intake Total 850 ml 100 ml Balance 850 ml 100 ml Intake Oral 750 ml IV Total 100 ml 100 ml # Voids 3 5 # Bowel Movements 2 Laboratory Tests 07/06/17 04:25: White Blood Count 11.5H, Red Blood Count 3.03L, Hemoglobin 9.5L, Hematocrit 28.6L, Mean Corpuscular Volume 95, Mean Corpuscular Hemoglobin 31.4H, Mean Corpuscular Hemoglobin Concent 33.2, Red Cell Distribution Width 20.5H, Platelet Count 481H, Mean Platelet Volume 4.9L, Neutrophils (%) (Auto) 76.8H, Lymphocytes (%) (Auto) 17.4L, Monocytes (%) (Auto) 5.7, Eosinophils (%) (Auto) 0.0, Basophils (%) (Auto) 0.1, Sodium Level 135L, Potassium Level 3.4L, Chloride Level 104, Carbon Dioxide Level 21, Anion Gap 10, Blood Urea Nitrogen 21H, Creatinine 1.4H, Estimat Glomerular Filtration Rate 50.7, Glucose Level 115H, Calcium Level 8.4L, Total Bilirubin 0.2, Aspartate Amino Transf (AST/SGOT ) 11L, Alanine Aminotransferase (ALT/SGPT) < 6L, Alkaline Phosphatase 72, Total Protein 7.0, Albumin 2.7L, Globulin 4.3, Albumin/Globulin Ratio 0.6L Height (Feet): 4 Height (Inches): 11.00 Weight (Pounds): 100 General Appearance: no apparent distress EENT: normal ENT inspection Neck: supple Cardiovascular: normal rate Respiratory/Chest: lungs clear Abdomen: normal bowel sounds, non tender, soft Extremities: non-tender CHRISTIAN ALEJANDRE Jul 06, 2017 08:02
[2017-07-06] MEDS: Mercaptopurine 50mg tab ORAL SCH (08:59)
--- NOTE | 2017-07-06 10:21 | General Progress Note ---
Assessment/Plan Assessment/Plan #. Anemia due to upper gastrointestinal bleed. --> ++Occult blood. Consider GI evaluation. Appreciate recs. --> Anemia workup reviewed. --> Iron 84, TIBC 290, Folate 4.1, Vit b12 177 --> Transfuse as needed. Trend H/H. #. Cystic ovarian mass. --> Obtain at this time, a transvaginal ultrasound to further evaluate. --> S/P Pelvic US revealing bilateral cysts, dominant cyst measuring 4.2cm in left ovary #. Anemia due to underlying folic acid deficiency. --> The patient started on folic acid. --> S/P Blood transfusion --> Monitor levels and make sure no acute drops. #. Anemia due to B12 deficiency, likely related to history of Crohn's disease. --> Administer B12 once a month. #. Macrocytosis, likely secondary to underlying B12 versus folic acid deficiency. --> Obtain a methylmalonic and homocysteine level. --> Homocysteine 25 #. Crohn's colitis. #. Hypertension. Subjective Date patient seen: Jul 05, 2017 Constitutional: Denies: no symptoms, chills, diaphoresis, fever, malaise, weakness, other HEENT: Denies: no symptoms, eye pain, blurred vision, tearing, double vision, ear pain, ear discharge, nose pain, nose congestion, throat pain, throat swelling, mouth pain, mouth swelling, other Cardiovascular: Denies: no symptoms, chest pain, edema, irregular heart rate, lightheadedness, palpitations, syncope, other Respiratory: Denies: no symptoms, cough, orthopnea, shortness of breath, SOB with excertion, SOB at rest, sputum, stridor, wheezing, other Gastrointestinal/Abdominal: Denies: no symptoms, abdomen distended, abdominal pain, black stools, tarry stools, blood in stool, constipated, diarrhea, difficulty swallowing, nausea, poor appetite, poor fluid intake, rectal bleeding , vomiting, other Genitourinary: Denies: no symptoms, burning, discharge, frequency, flank pain, hematuria, incontinence, pain, urgency, other Allergies: Coded Allergies: No Known Allergies (Unverified , 01/23/16) Subjective ++Occult blood. No fever. On pain control. Objective Last 24 Hour Vital Signs Date Time Temp Pulse Resp B/P (MAP) Pulse Ox O2 Delivery O2 Flow Rate FiO2 07/06/17 08:59 93 143/94 07/06/17 08:00 97.3 93 20 143/94 100 07/06/17 04:42 174/110 07/06/17 04:00 100 Room Air 07/06/17 04:00 97.5 80 20 151/101 100 07/06/17 00:00 97.4 94 20 150/103 100 07/06/17 00:00 100 Room Air 07/05/17 20:00 98.5 92 20 99 07/05/17 20:00 99 Room Air 07/05/17 19:00 98.5 92 20 160/110 99 07/05/17 16:57 172/114 07/05/17 16:15 97.9 71 21 172/114 97 Room Air 07/05/17 12:00 98.3 102 22 158/98 98 Room Air 07/05/17 10:30 98.2 102 20 144/82 98 Room Air Intake and Output 07/05/17 07/06/17 19:00 07:00 Intake Total 850 ml 100 ml Balance 850 ml 100 ml Intake Oral 750 ml IV Total 100 ml 100 ml # Voids 3 5 # Bowel Movements 2 Laboratory Tests 07/06/17 04:25: White Blood Count 11.5H, Red Blood Count 3.03L, Hemoglobin 9.5L, Hematocrit 28.6L, Mean Corpuscular Volume 95, Mean Corpuscular Hemoglobin 31.4H, Mean Corpuscular Hemoglobin Concent 33.2, Red Cell Distribution Width 20.5H, Platelet Count 481H, Mean Platelet Volume 4.9L, Neutrophils (%) (Auto) 76.8H, Lymphocytes (%) (Auto) 17.4L, Monocytes (%) (Auto) 5.7, Eosinophils (%) (Auto) 0.0, Basophils (%) (Auto) 0.1, Sodium Level 135L, Potassium Level 3.4L, Chloride Level 104, Carbon Dioxide Level 21, Anion Gap 10, Blood Urea Nitrogen 21H, Creatinine 1.4H, Estimat Glomerular Filtration Rate 50.7, Glucose Level 115H, Calcium Level 8.4L, Total Bilirubin 0.2, Aspartate Amino Transf (AST/SGOT ) 11L, Alanine Aminotransferase (ALT/SGPT) < 6L, Alkaline Phosphatase 72, Total Protein 7.0, Albumin 2.7L, Globulin 4.3, Albumin/Globulin Ratio 0.6L Height (Feet): 4 Height (Inches): 11.00 Weight (Pounds): 100 General Appearance: confused Respiratory/Chest: decreased breath sounds Edema: trace edema Skin: warm/dry Moses Hall Jul 06, 2017 10:21
--- NOTE | 2017-07-06 11:43 | Diagnostic Imaging Report ---
Indication: Abdominal pain Comparison: 12/06/2013 Single view of the abdomen obtained Findings: Bowel gas pattern is nonspecific. Surgical clips in the right side of abdomen again noted. No mass, ectopic calcifications, or abnormal gas collections are identified. The bones are osteopenic. Impression: No acute findings
[2017-07-06 12:00] VITALS: BP 163/105
--- NOTE | 2017-07-06 12:55 | Pulmonology Progress Note ---
Assessment/Plan Assessment/Plan ASSESSMENT Syncope, prob due to anemia of acute blood loss Anemia of acute blood loss, requiring blood transfusion anemia of B 12 and folate deficiency Coffee ground emesis Crohn colitis bacteriuria BRIJESH on CRI single episode of elevated troponin , likely troponin leak 2 to BRIJESH hypothyroidism ( newly diagnosed) HTN seizure disorder L ovarian cyst hypokalemia PLAN OF CARE [facility] floor IVF GI follows on Solumedrol and 6-MP Abx low residue diet as tolerated a/emetic prn GI prophylaxis bowel regimen CT A/P on 06/22 with large ovarian cystic mass pelvic US with L ovarian, cyst CA -125 -WNL proabbly physiological cyst , repeat TV US in 6 wks as recommended by radiology Monitor HH, HH better after transfusion B 12 and Folate added stool OB- positive BP management with CCB, and Clonidine prn urine cx with E coli ( small colony count), and GPO, likely contamination , no urinary complaints, likely asymptomatic bacteriuria Venous Duplex BLE negative seizure precautions, continue Phenobarbital , no evidence of seizure while in the hospital Monitor renal parameters, lytes, creat down prior renal US with evidence of echogenic kidneys c/w medical renal disease free T4 low, high TSH , started on levothyroxine low dose, check TFT in 1 month last troponin WNL, no cardiac complaints, tele was negative, single episode of minimally elevated troponin likely due to BRIJESH, troponin leak dc today cleared by GI GI provided scripts for prednisone with slow tapering and 6-MP scripts for anti HN provided case discussed and evaluated by supervising physician Subjective Allergies: Coded Allergies: No Known Allergies (Unverified , 01/23/16) Subjective tolerated diet, no n/v/ + intermittent abdominal pain, s/p blood transfusion, HH better, mild leucocytosis, afebrile feeling better Objective Last 24 Hour Vital Signs Date Time Temp Pulse Resp B/P (MAP) Pulse Ox O2 Delivery O2 Flow Rate FiO2 07/06/17 12:05 83 163/105 07/06/17 12:04 163/105 07/06/17 12:00 98.3 83 18 163/105 98 Room Air 07/06/17 08:59 93 143/94 07/06/17 08:00 97.3 93 20 143/94 100 07/06/17 04:42 174/110 07/06/17 04:00 100 Room Air 07/06/17 04:00 97.5 80 20 151/101 100 07/06/17 00:00 97.4 94 20 150/103 100 07/06/17 00:00 100 Room Air 07/05/17 20:00 98.5 92 20 99 07/05/17 20:00 99 Room Air 07/05/17 19:00 98.5 92 20 160/110 99 07/05/17 16:57 172/114 07/05/17 16:15 97.9 71 21 172/114 97 Room Air Intake and Output 07/05/17 07/06/17 19:00 07:00 Intake Total 850 ml 100 ml Balance 850 ml 100 ml Intake Oral 750 ml IV Total 100 ml 100 ml # Voids 3 5 # Bowel Movements 2 Objective General Appearance: no acute distress, other - A/A/O x 4 AA female in NAD HEENT: normocephalic, atraumatic, anicteric Respiratory/Chest: lungs clear, no respiratory distress, no accessory muscle use Cardiovascular: normal peripheral pulses, normal rate Abdomen: normal bowel sounds - soft, mild diffused tenderness, no rebound, no guarding Extremities: no edema, pedal pulses normal Neurologic/Psychiatric: no motor/sensory deficits, alert, oriented x 3, responsive, normal mood/affect Musculoskeletal: normal muscle bulk Laboratory Tests 07/06/17 04:25: White Blood Count 11.5H, Red Blood Count 3.03L, Hemoglobin 9.5L, Hematocrit 28.6L, Mean Corpuscular Volume 95, Mean Corpuscular Hemoglobin 31.4H, Mean Corpuscular Hemoglobin Concent 33.2, Red Cell Distribution Width 20.5H, Platelet Count 481H, Mean Platelet Volume 4.9L, Neutrophils (%) (Auto) 76.8H, Lymphocytes (%) (Auto) 17.4L, Monocytes (%) (Auto) 5.7, Eosinophils (%) (Auto) 0.0, Basophils (%) (Auto) 0.1, Sodium Level 135L, Potassium Level 3.4L, Chloride Level 104, Carbon Dioxide Level 21, Anion Gap 10, Blood Urea Nitrogen 21H, Creatinine 1.4H, Estimat Glomerular Filtration Rate 50.7, Glucose Level 115H, Calcium Level 8.4L, Total Bilirubin 0.2, Aspartate Amino Transf (AST/SGOT ) 11L, Alanine Aminotransferase (ALT/SGPT) < 6L, Alkaline Phosphatase 72, Total Protein 7.0, Albumin 2.7L, Globulin 4.3, Albumin/Globulin Ratio 0.6L Current Medications Medications (Trade) Dose Ordered Sig/Jasbir Route PRN Reason Start Time Stop Time Status Last Admin Dose Admin Acetaminophen (Tylenol) 650 mg Q4H PRN ORAL fever 07/02/17 16:50 07/31/17 16:49 Acetaminophen/ Hydrocodone Bitart ([place] 5/325) 1 tab Q6H PRN ORAL For Modeate Pain (Scale 4-6) 07/02/17 16:51 07/08/17 16:50 Al Hydroxide/Mg Hydroxide (Mylanta II) 30 ml Q6H PRN ORAL dyspepsia 07/02/17 16:51 07/31/17 16:50 Amlodipine Besylate (Norvasc) 2.5 mg DAILY ORAL 07/03/17 09:00 08/01/17 08:59 07/06/17 08:59 Clonidine HCl (Catapres Tab) 0.1 mg Q6H PRN ORAL sbp more than 160 07/03/17 08:02 08/02/17 08:01 07/06/17 12:04 Dextrose (Dextrose 50%) STAT PRN IV Hypoglycemia 07/02/17 16:51 07/31/17 16:50 Diphenhydramine HCl (Benadryl) 50 mg Q6H PRN IVP Itching 07/02/17 16:51 07/31/17 16:50 07/06/17 12:05 Folic Acid (Folate) 1 mg DAILY ORAL 07/03/17 09:00 08/02/17 08:59 07/06/17 08:59 Levothyroxine Sodium (Synthroid) 25 mcg DAILY@0630 ORAL 07/04/17 06:30 08/03/17 06:29 07/06/17 06:02 Lorazepam (Ativan 2mg/ml 1ml) 0.5 mg Q4H PRN IV For Anxiety 07/02/17 16:51 07/08/17 16:50 Mercaptopurine (Purinethol) 50 mg DAILY ORAL 07/03/17 09:00 07/07/17 12:59 07/06/17 08:59 Metronidazole 100 ml @ 100 mls/hr Q8HR IVPB 07/02/17 22:00 07/09/17 13:59 07/06/17 06:02 Morphine Sulfate (Morphine Sulfate) 1 mg Q4H PRN IVP For Severe Pain (Scale 7-10) 07/02/17 16:52 07/08/17 16:51 07/06/17 10:21 Ondansetron HCl (Zofran ODT) 4 mg Q6H PRN ORAL Nausea & Vomiting 07/02/17 16:52 07/31/17 16:51 Ondansetron HCl (Zofran) 4 mg Q6H PRN IVP N/V IF UNABLE TO TOLERATE ORAL 07/02/17 19:45 07/31/17 19:44 Pantoprazole (Protonix) 40 mg DAILY ORAL 07/03/17 09:00 08/02/17 08:59 07/06/17 08:59 Phenobarbital (PHENobarbital) 97.2 mg QHS ORAL 07/02/17 21:00 07/31/17 22:59 07/05/17 21:06 Polyethylene Glycol (Miralax) 17 gm Q24H PRN ORAL Constipation 07/02/17 16:52 08/01/17 16:51 Prednisone (predniSONE) 40 mg DAILY ORAL 07/06/17 14:00 08/05/17 13:59 Zolpidem Tartrate (Ambien) 5 mg HSPRN PRN ORAL Insomnia 07/02/17 16:53 07/08/17 16:52 [facility] Hospital[facility]alcava NP Jul 06, 2017 12:55
[2017-07-06] MEDS ORDERED: MERCAPTOPURINE50 MG PO (13:33)
[2017-07-06] MEDS ORDERED: PREDNISONE20 MG ORAL ×2 (13:36→13:37)
[2017-07-06] MEDS ORDERED: PREDNISONE2.5 MG ORAL (13:38)
[2017-07-06] MEDS ORDERED: PREDNISONE10 MG ORAL (13:38)
[2017-07-06 15:50] VITALS: BP 144/91
--- NOTE | 2017-07-07 00:15 | General Progress Note ---
Assessment/Plan Assessment/Plan #. Anemia due to upper gastrointestinal bleed. --> ++Occult blood. Consider GI evaluation. Appreciate recs. --> Anemia workup reviewed. --> Iron 84, TIBC 290, Folate 4.1, Vit b12 177 --> Transfuse as needed. Trend H/H. --> Does not need prbc at this time. #. Cystic ovarian mass. --> Obtain at this time, a transvaginal ultrasound to further evaluate. --> S/P Pelvic US revealing bilateral cysts, dominant cyst measuring 4.2cm in left ovary #. Anemia due to underlying folic acid deficiency. --> The patient started on folic acid. --> S/P Blood transfusion --> Monitor levels and make sure no acute drops. #. Anemia due to B12 deficiency, likely related to history of Crohn's disease. --> Administer B12 once a month. #. Macrocytosis, likely secondary to underlying B12 versus folic acid deficiency. --> Obtain a methylmalonic and homocysteine level. --> Homocysteine 25 #. Crohn's colitis. #. Hypertension. Subjective Allergies: Coded Allergies: No Known Allergies (Unverified , 01/23/16) Subjective No acute distress. No fever or chills. Objective Last 24 Hour Vital Signs Date Time Temp Pulse Resp B/P (MAP) Pulse Ox O2 Delivery O2 Flow Rate FiO2 07/06/17 15:50 97.4 84 20 144/91 99 Room Air 07/06/17 12:05 83 163/105 07/06/17 12:04 163/105 07/06/17 12:00 98.3 83 18 163/105 98 Room Air 07/06/17 08:59 93 143/94 07/06/17 08:00 97.3 93 20 143/94 100 07/06/17 04:42 174/110 07/06/17 04:00 100 Room Air 07/06/17 04:00 97.5 80 20 151/101 100 Intake and Output 07/06/17 07/07/17 19:00 07:00 Intake Total 440 ml Balance 440 ml Intake Oral 340 ml IV Total 100 ml # Voids 2 # Bowel Movements 1 Laboratory Tests 07/06/17 04:25: White Blood Count 11.5H, Red Blood Count 3.03L, Hemoglobin 9.5L, Hematocrit 28.6L, Mean Corpuscular Volume 95, Mean Corpuscular Hemoglobin 31.4H, Mean Corpuscular Hemoglobin Concent 33.2, Red Cell Distribution Width 20.5H, Platelet Count 481H, Mean Platelet Volume 4.9L, Neutrophils (%) (Auto) 76.8H, Lymphocytes (%) (Auto) 17.4L, Monocytes (%) (Auto) 5.7, Eosinophils (%) (Auto) 0.0, Basophils (%) (Auto) 0.1, Sodium Level 135L, Potassium Level 3.4L, Chloride Level 104, Carbon Dioxide Level 21, Anion Gap 10, Blood Urea Nitrogen 21H, Creatinine 1.4H, Estimat Glomerular Filtration Rate 50.7, Glucose Level 115H, Calcium Level 8.4L, Total Bilirubin 0.2, Aspartate Amino Transf (AST/SGOT ) 11L, Alanine Aminotransferase (ALT/SGPT) < 6L, Alkaline Phosphatase 72, Total Protein 7.0, Albumin 2.7L, Globulin 4.3, Albumin/Globulin Ratio 0.6L Height (Feet): 4 Height (Inches): 11.00 Weight (Pounds): 100 General Appearance: no apparent distress Cardiovascular: normal rate, regular rhythm Respiratory/Chest: decreased breath sounds Abdomen: non tender, soft Moses Hall Jul 07, 2017 00:15
[2017-07-09] MEDS ORDERED: LEVOTHYROXINE25 MCG ORAL (13:49)
--- NOTE | 2017-07-09 14:33 | Discharge Summary ---
Discharge Summary Hospital Course Date of Admission Jul 01, 2017 at 19:07 Date of Discharge Jul 06, 2017 at 18:12 Admitting Diagnosis anemia, weakness HPI Walter Ponce is a 37 year old female who was admitted on Jul 01, 2017 at 19: 07 for Anemia Weakness Hospital Course dc summary #[id number] Discharge Medications New Medications: Levothyroxine Sodium* (Levothyroxine Sodium*) 25 Mcg Tablet 25 MCG ORAL DAILY, #30 TAB Take in the morning on an empty stomach, at least 30 minutes before food. Continued Medications: Amlodipine Besylate* (Amlodipine Besylate*) 2.5 Mg Tablet 2.5 MG ORAL DAILY, #7 TAB 0 Refills Clonidine Hcl* (Catapres*) 0.1 Mg Tablet 0.1 MG ORAL Q8H, #90 TAB 0 Refills Folic Acid* (Folic Acid*) 1 Mg Tablet 1 MG ORAL DAILY, TAB Mercaptopurine (Mercaptopurine) 50 Mg Tablet 50 MG PO DAILY for 30 Days, TAB Phenobarbital* (Phenobarbital*) 30 Mg Tablet 90 MG ORAL DAILY for 30 Days, TAB 0 Refills Prednisone* (Prednisone*) 20 Mg Tablet 40 MG ORAL DAILY for 7 Days, TAB Prednisone* (Prednisone*) 20 Mg Tablet 30 MG ORAL DAILY for 7 Days, TAB 0 Refills Prednisone* (Prednisone*) 20 Mg Tablet 25 MG ORAL DAILY for 7 Days, TAB 0 Refills Prednisone* (Prednisone*) 20 Mg Tablet 20 MG ORAL DAILY for 7 Days, TAB 0 Refills Prednisone* (Prednisone*) 10 Mg Tablet 15 MG ORAL DAILY for 7 Days, #10 TAB 0 Refills Prednisone* (Prednisone*) 10 Mg Tablet 10 MG ORAL DAILY for 7 Days, #10 TAB 0 Refills Prednisone* (Prednisone*) 2.5 Mg Tablet 5 MG ORAL DAILY for 7 Days, #10 TAB 0 Refills Discharge Condition Upon Discharge: stable Discharge Disposition Patient was discharged to Home (01) Discharge Diagnoses: Herb (Meir)Lorrie NP Jul 09, 2017 14:33
--- NOTE | 2017-07-09 22:01 | Diagnostic Imaging Report ---
APPROVED REPORT CPT Code: 41823 Present Symptoms Comments: Pain BILATERAL: Imaging reveals a patent deep venous system bilaterally. There is no evidence of thrombus within the femoral, popliteal or tibial segments. The greater saphenous veins are also within normal limits. Doppler indicates normal spontaneous flow within these segments.
--- NOTE | 2017-07-10 03:00 | Discharge Summary 2 SIG ---
DATE OF ADMISSION: 07/01/2017 DATE OF DISCHARGE: 07/06/2017 REASON FOR ADMISSION: 37-year-old female presented to emergency department for evaluation. She reported syncopal episode while visiting a family member in the hospital. She had been feeling weak and vomited with coffee-ground emesis. The patient with a past medical history significant for hypertension, seizure disorder, and Crohn disease. She complained of abdominal pain, sharp, nonradiating, 8/10. Denied any blood in stool. No chest pain. No shortness of breath. Workup in the emergency room revealed tachycardia and leukocytosis. WBC -11.9, hemoglobin -7, and hematocrit -22.1. EKG revealed sinus tachycardia. BUN and creatinine were elevated. Troponin- 0.17. Aspirin was given for elevated troponin. Urinalysis was positive for urinary tract infection. The patient was admitted to telemetry floor for further workup. ADMITTING DIAGNOSES: 1. Coffee-grounds emesis. 2. Crohn colitis. 3. Hypertension. 4. Anemia. 5. Syncopal episode. 6. Elevated troponin. 7. Renal insufficiency. 8. Urinary tract infection. HOSPITAL COURSE: The patient was admitted to telemetry floor. Initially, the patient had a single episode of elevated troponin. Next troponin was negative. GI followed the patient closely. The patient was started on Solu-Medrol and 6-MP for treatment of Crohn's colitis. The patient was on antibiotics. Initially was NPO with IV fluids. Low-residue diet started as tolerated. Antiemetic provided as needed. GI prophylaxis provided. Bowel regimen instituted. CT of the abdomen and pelvis, which was done on 06/22/2017,revealed large ovarian cystic mass, Subsequently, the pelvic ultrasound was done, which revealed left ovarian mass, possible cyst. CA-125 was within normal limits. Probably physiological cyst. Recommended to repeat transvaginal ultrasound in six weeks. Hemoglobin and hematocrit were closely monitored. The patient was transfused two times. The patient received total of 3 units of packed red blood cells. Anemia workup revealed B12 and folate deficiency anemia. Supplemental B12 and folate were added to existing regimen. Stool OB was positive. Recommended colonoscopy as outpatient. Blood pressure was managed with calcium channel marcia and clonidine as needed. Urine culture revealed E. coli and gram-positive organism, likely contamination and E. coli with small colony count. No urinary complaints, likely asymptomatic bacteriuria. Venous duplex of bilateral lower extremities was negative. Seizure precaution were maintained. Phenobarbital was continued. No evidence of seizure activity while in the hospital. Renal parameters and electrolytes were closely monitored. Electrolytes corrected as needed. Creatinine was trending down. Prior renal ultrasound revealed evidence of echogenic kidneys consistent with medical renal disease. Also, noted high TSH. Subsequently, free T4 was checked and was low. The patient with newly diagnosed hypothyroidism, started on low dose of levothyroxine and recommended to check thyroid function tests in one month. Telemetry was negative. Single episode of minimally elevated troponin was likely due to acute kidney injury secondary to troponin leak. Last troponin within normal limits. No cardiac complaints. Tele was discontinued. The patient was transferred to Med/Surg floor. GI closely followed along with the manager renewable energy. GI cleared for discharge. Gastrointestinal specialist provided script for prednisone with slow tapering and 6-MP. Director University/oncologist closely followed the patient. Recommended to follow counts as outpatient. The patient had multifactorial anemia secondary to upper GI bleeding, positive occult blood as well as the folic acid deficiency and B12 deficiency. Acute kidney injury resolved. Creatinine from initial 1.9 down to 1.4 and BUN from initial 59 down to 21. The patient was stable for discharge and cleared by all consultants. FINAL DIAGNOSES: 1. Syncope probably due to the anemia of acute blood loss. 2. Anemia of acute blood loss requiring blood transfusion. 3. Anemia of B12 and folate deficiency. 4. Coffee-grounds emesis. 5. Crohn's colitis. 6. Bacteriuria. 7. Acute kidney injury on chronic renal insufficiency. 8. Single episode of elevated troponin likely troponin leak secondary to acute kidney injury. 9. Hypothyroidism, newly diagnosed. 10. Hypertension. 11. Seizure disorder. 12. Left ovarian cyst. 13. Hypokalemia. DISCHARGE MEDICATIONS: See medication reconciliation list. Scripts provided. DISCHARGE INSTRUCTIONS: The patient was discharged home. Follow up with GI doctor in two weeks. Follow up with the primary care provider next week. Repeat transvaginal ultrasound in six weeks. Kathy Sawyer M.D. Lorrie RamiresDidi escobedo DR: LISA JOB#: [id number] CC: BABAK
== END 2017-07-06 18:12 | disposition home or self-care (01) | DRG 253 ==
LOC: EMR 17:19 → EDBEDREQSVC 17:26 → 2E 19:07 → EDBEDREQ 20:29 → 2E 20:53 → EDBEDREQ 20:54 → 2E 21:07 → 4E 07-02 16:18
PROC: 30233N1 Transfusion of Nonautologous Red Blood Cells into Peripheral Vein, Percutaneous Approach (ICD-10-PCS; principal; 2017-07-01)
DX: K92.2 Gastrointestinal hemorrhage, unspecified (principal); N17.9 Acute kidney failure, unspecified; D51.9 Vitamin B12 deficiency anemia, unspecified; K50.90 Crohn's disease, unspecified, without complications; D52.9 Folate deficiency anemia, unspecified; D62 Acute posthemorrhagic anemia; R55 Syncope and collapse; I12.9 Hypertensive chronic kidney disease with stage 1 through stage 4 chronic kidney disease, or unspecified chronic kidney disease; N18.9 Chronic kidney disease, unspecified; E03.9 Hypothyroidism, unspecified; N83.8 Other noninflammatory disorders of ovary, fallopian tube and broad ligament; R10.9 Unspecified abdominal pain; N83.292 Other ovarian cyst, left side; E87.6 Hypokalemia; G40.909 Epilepsy, unspecified, not intractable, without status epilepticus
CPT/HCPCS: 36415; 74018; 76856; 80048; 80053; 80184; 81003; 81025; 82270; 82378; 82607; 82746; 83090; 83540; 83550; 83615; 83690; 83735; 83921; 84238; 84439; 84443; 84484; 85007; 85025; 85044; 85060; 85610; 85651; 85730; 86140; 86304; 86850; 86900; 86901; 86920; 87086; 87181; 93005; 93970; 99285; J2405; J8499

== ENCOUNTER 2017-10-03 01:15 | Inpatient (IN) | payer OTHER ==
[~2017-10-03] VITALS: Ht 149.9 cm; Wt 49.9 kg
[~2017-10-03 01:15] MED LIST changes: +LEVOTHYROXINE25 MCG ORAL; +MERCAPTOPURINE50 MG PO; +PREDNISONE10 MG ORAL; +PREDNISONE2.5 MG ORAL
[2017-10-03 01:23] VITALS: BP 144/89
[2017-10-03] MEDS ORDERED: Norco 5mg/325mg tab ORAL ONE (01:45)
[2017-10-03] MEDS ORDERED: Metoclopramide 10mg/2ml Inj IVP ONE (01:45)
[2017-10-03] MEDS ORDERED: DiphenhydrAMINE 50mg/ml Inj IVP ONE (01:45)
[2017-10-03 01:59] LABS: HEMATOCRIT 22.7 % (37.0-47.0); MEAN CORPUSCULAR VOLUME 102 FL (80-99); PLATELET COUNT 513 K/UL (150-450); RED BLOOD COUNT 2.22 M/UL (4.20-5.40); RED CELL DISTRIBUTION WIDTH 20.8 % (11.6-14.8)
[2017-10-03 02:04] LABS: HEMOGLOBIN 6.7 G/DL (12.0-16.0)
[2017-10-03 02:08] LABS: ANION GAP 15 mmol/L (5-15); BLOOD UREA NITROGEN 26 mg/dL (7-18); CALCIUM 9.1 MG/DL (8.5-10.1); CARBON DIOXIDE 18 MMOL/L (21-32); CHLORIDE 106 MMOL/L (98-107); CREATININE 2.4 MG/DL (0.55-1.30); POTASSIUM 4.1 MMOL/L (3.5-5.1); SODIUM 139 MMOL/L (136-145)
[2017-10-03 02:10] LABS: APPEARANCE,URINE CLEAR; BILIRUBIN, URINE NEGATIVE (NEGATIVE); COLOR,URINE PALE YELLOW; GLUCOSE, URINE (UA) NEGATIVE (NEGATIVE); KETONES,URINE NEGATIVE (NEGATIVE); LEUKOCYTE ESTERASE ,URINE NEGATIVE (NEGATIVE); NITRITE,URINE NEGATIVE (NEGATIVE); PH,URINE 6.5 (4.5-8.0); PROTEIN,URINE 2+ (NEGATIVE); UROBILINOGEN,URINE NORMAL MG/DL (0.0-1.0)
[2017-10-03 02:22] LABS: ALANINE AMINOTRANSFERASE 9 U/L (12-78); ALBUMIN 3.8 G/DL (3.4-5.0); ALBUMIN/GLOBULIN RATIO 0.8 (1.0-2.7); ALKALINE PHOSPHATASE 86 U/L (46-116); ASPARTATE AMINO TRANSFERASE 16 U/L (15-37); BILIRUBIN,TOTAL 0.2 MG/DL (0.2-1.0); CKMB 0.9 NG/ML (0.0-3.6)
--- NOTE | 2017-10-03 02:22 | Emergency Room Report ---
History of Present Illness General Chief Complaint: Headache Source: Patient, Medical Record Present Illness HPI 37-year-old female presents with headache, nausea, diarrhea, reports no recent bloody stools, or melena, but reports she has Crohn's disease and sometimes there is blood tinging to her bowel movements She denies abdominal pain, fevers, but reports she just has no energy. Allergies: Coded Allergies: No Known Allergies (Unverified , 01/23/16) Patient History Past Medical History: see triage record Last Menstrual Period: 09/16/17 Now: No Reviewed Nursing Documentation: PMH: Agreed; PSxH: Agreed Nursing Documentation-PMH Hx Cardiac Problems: Yes - Hypothyroid Hx Hypertension: Yes Hx Cancer: No Hx Neurological Problems: Yes Hx Seizures: Yes Review of Systems All Other Systems: negative except mentioned in HPI Physical Exam Vital Signs Date Time Temp Pulse Resp B/P (MAP) Pulse Ox O2 Delivery O2 Flow Rate FiO2 10/03/17 01:18 98.3 95 14 144/89 97 Room Air 98.2 Sp02 EP Interpretation: reviewed, normal General Appearance: no apparent distress, alert, non-toxic Head: normocephalic Eyes: bilateral eye normal inspection, bilateral eye PERRL, bilateral eye EOMI ENT: normal ENT inspection, hearing grossly normal, normal pharynx, no angioedema, normal voice, moist mucus membranes Neck: normal inspection, full range of motion, supple, supple/symm/no masses Respiratory: chest non-tender, lungs clear, normal breath sounds, chest symmetrical, palpation of chest normal Cardiovascular #1: normal peripheral pulses, regular rate, rhythm Cardiovascular #2: 2+ radial (R), 2+ radial (L) Gastrointestinal: normal inspection, non tender, soft, no mass, no guarding, no rebound Rectal: normal exam - Brown stools, Hemoccult negative, normal rectal tone, heme negative stool Genitourinary: normal inspection, no CVA tenderness Musculoskeletal: back normal, gait/station normal, normal range of motion, non- tender, no calf tenderness Neurologic: alert, responsive, solution sales senior executive III-XII nml as tested, motor strength/tone normal, sensory intact, speech normal Psychiatric: judgement/insight normal, mood/affect normal Skin: normal color, no rash, warm/dry, normal turgor Lymphatic: no adenopathy Medical Decision Making Diagnostic Impression: Primary Impression: Anemia ER Course Patient agreed to see her transfusion, she's had them in the past, there may be some blood tinging in her bowel movements, but not recently, she understood the risk and benefits including HIV, hepatitis, transfusion mismatch, but she agreed to receive the transfusion given her symptomatic anemia she was admitted to the hospital, diagnosis symptomatic anemia EKG Diagnostic Results EKG Time: 15:40 EP Interpretation: No ST segment changes noted inversions Rate: normal Rhythm: NSR ST Segments: no acute changes ASA given to the pt in ED: No Last Vital Signs Date Time Temp Pulse Resp B/P (MAP) Pulse Ox O2 Delivery O2 Flow Rate FiO2 10/03/17 02:12 98.2 10/03/17 01:23 102 14 144/89 97 Room Air Disposition: ADMITTED INPATIENT Condition: Stable Signed Out To: Dr. Ludwig Referrals: [facility],REFERRING (PCP) ARLEEN REINA M.D October 03, 2017 02:22
[2017-10-03 04:30] VITALS: BP 149/91
[2017-10-03 04:45] VITALS: BP 151/109
[2017-10-03] MEDS ORDERED: Norco 5mg/325mg tab ORAL PRN ×2 (07:30→13:30)
[2017-10-03 09:00] VITALS: BP 148/103
[2017-10-03] MEDS ORDERED: Mercaptopurine 50mg tab ORAL SCH (09:00)
[2017-10-03] MEDS: Mesalamine 400mg cap ORAL SCH ×2 (12:41→18:17)
[2017-10-03] MEDS ORDERED: HYDROcodone/Acetamin 10/325 tab ORAL PRN (13:30)
--- NOTE | 2017-10-03 14:46 | Consultation ---
History of Present Illness General Date patient seen: October 03, 2017 Chief Complaint: Headache Present Illness HPI 37-year-old female with hx of crohn disease presented with headache, nausea, diarrhea, reports no recent bloody stools, or melena, She denies abdominal pain, fevers, but reports she just has no energy. She was found severely anemic and admitted for further evaluation. Allergies: Coded Allergies: No Known Allergies (Unverified , 01/23/16) Medication History Scheduled Folic Acid* (Folic Acid*), 1 MG ORAL DAILY, (Reported) Mercaptopurine (Mercaptopurine), 50 MG PO DAILY, (Reported) Phenobarbital* (Phenobarbital*), 90 MG ORAL DAILY Prednisone* (Prednisone*), 60 MG ORAL DAILY, (Reported) [Mesalamine], 1,600 MG ORAL THREE TIMES A DAY Scheduled PRN Diphenhydramine HCl (Diphenhydramine HCl), 50 MG ORAL THREE TIMES A DAY PRN for Itching, (Reported) Discontinued Medications Amlodipine Besylate* (Amlodipine Besylate*), 2.5 MG ORAL DAILY Discontinued Reason: Therapy completed Capsaicin (Capsaicin), 1 APPLIC TP PRN Discontinued Reason: Therapy completed Clonidine HCl (Clonidine HCl), 0.1 MG GT Q6HR PRN Discontinued Reason: Therapy completed Clonidine Hcl* (Catapres*), 0.1 MG ORAL Q8H Discontinued Reason: Therapy completed Levothyroxine Sodium* (Levothyroxine Sodium*), 25 MCG ORAL DAILY Discontinued Reason: Therapy completed Nitrofurantoin Monohyd/M-Cryst* (Macrobid 100 Mg*), 100 MG ORAL EVERY 12 HOURS Discontinued Reason: Therapy completed Ondansetron Odt* (Zofran Odt*), 4 MG ORAL Q6H PRN for Nausea & Vomiting Discontinued Reason: Therapy completed Prednisone* (Prednisone*), 40 MG ORAL DAILY, (Reported) Discontinued Reason: Therapy completed Prednisone* (Prednisone*), 30 MG ORAL DAILY, (Reported) Discontinued Reason: Therapy completed Prednisone* (Prednisone*), 25 MG ORAL DAILY, (Reported) Discontinued Reason: Therapy completed Prednisone* (Prednisone*), 20 MG ORAL DAILY, (Reported) Discontinued Reason: Therapy completed Prednisone* (Prednisone*), 15 MG ORAL DAILY, (Reported) Discontinued Reason: Therapy completed Prednisone* (Prednisone*), 10 MG ORAL DAILY, (Reported) Discontinued Reason: Therapy completed Prednisone* (Prednisone*), 5 MG ORAL DAILY, (Reported) Discontinued Reason: Therapy completed Patient History Healthcare decision maker Resuscitation status Full Code Advanced Directive on File No Past Medical/Surgical History Past Medical/Surgical History: (1) HTN (hypertension), benign (2) Seizure disorder Review of Systems Constitutional: Reports: no symptoms Eye: Reports: no symptoms ENT: Reports: no symptoms Physical Exam General Appearance: WD/WN Lines, tubes and drains: peripheral HEENT: normocephalic, anicteric Neck: non-tender, normal alignment Respiratory/Chest: chest wall non-tender, lungs clear Breasts: no masses Cardiovascular/Chest: normal peripheral pulses Abdomen: normal bowel sounds Genitourinary/Rectal: normal rectal exam Extremities: non-tender Last 24 Hour Vital Signs Date Time Temp Pulse Resp B/P (MAP) Pulse Ox O2 Delivery O2 Flow Rate FiO2 10/03/17 12:42 167/104 10/03/17 11:39 148/103 10/03/17 10:00 97.5 10/03/17 09:02 97.5 10/03/17 09:01 71 148/103 10/03/17 09:00 98.2 71 21 148/103 100 Room Air 98.2 10/03/17 05:15 97.5 81 14 151/109 100 Room Air 97.5 10/03/17 04:45 97.5 81 14 97.5 10/03/17 04:45 81 14 151/109 100 Room Air 10/03/17 04:34 97.2 84 14 97.2 10/03/17 04:30 97.2 84 12 149/91 99 Room Air 97.2 10/03/17 03:11 97.2 10/03/17 02:12 98.2 10/03/17 01:23 98.2 102 14 144/89 97 Room Air 98.2 10/03/17 01:18 98.3 95 14 144/89 97 Room Air 98.2 Intake and Output 10/02/17 10/03/17 19:00 07:00 Intake Total 0 ml Balance 0 ml Intake Oral 0 ml Laboratory Tests Test 10/03/17 01:45 White Blood Count 10.0 K/UL (4.8-10.8) Red Blood Count 2.22 M/UL (4.20-5.40) L Hemoglobin 6.7 G/DL (12.0-16.0) *L Hematocrit 22.7 % (37.0-47.0) L Mean Corpuscular Volume 102 FL (80-99) H Mean Corpuscular Hemoglobin 30.1 PG (27.0-31.0) Mean Corpuscular Hemoglobin Concent 29.6 G/DL (32.0-36.0) L Red Cell Distribution Width 20.8 % (11.6-14.8) H Platelet Count 513 K/UL (150-450) H Mean Platelet Volume 5.0 FL (6.5-10.1) L Neutrophils (%) (Auto) % (45.0-75.0) Lymphocytes (%) (Auto) % (20.0-45.0) Monocytes (%) (Auto) % (1.0-10.0) Eosinophils (%) (Auto) % (0.0-3.0) Basophils (%) (Auto) % (0.0-2.0) Urine Color Pale yellow Urine Appearance Clear Urine pH 6.5 (4.5-8.0) Urine Specific [place] 1.010 (1.005-1.035) Urine Protein 2+ (NEGATIVE) H Urine Glucose (UA) Negative (NEGATIVE) Urine Ketones Negative (NEGATIVE) Urine Occult Blood 1+ (NEGATIVE) H Urine Nitrite Negative (NEGATIVE) Urine Bilirubin Negative (NEGATIVE) Urine Urobilinogen Normal MG/DL (0.0-1.0) Urine Leukocyte Esterase Negative (NEGATIVE) Urine RBC 2-4 /HPF (0 - 2) H Urine WBC 0-2 /HPF (0 - 2) Urine Squamous Epithelial Cells Few /LPF (NONE/OCC) Urine Bacteria Few /HPF (NONE) Sodium Level 139 MMOL/L (136-145) Potassium Level 4.1 MMOL/L (3.5-5.1) Chloride Level 106 MMOL/L (98-107) Carbon Dioxide Level 18 MMOL/L (21-32) L Anion Gap 15 mmol/L (5-15) Blood Urea Nitrogen 26 mg/dL (7-18) H Creatinine 2.4 MG/DL (0.55-1.30) H Estimat Glomerular Filtration Rate 27.3 mL/min (>60) Glucose Level 117 MG/DL (74-106) H Calcium Level 9.1 MG/DL (8.5-10.1) Magnesium Level 2.3 MG/DL (1.8-2.4) Total Bilirubin 0.2 MG/DL (0.2-1.0) Aspartate Amino Transf (AST/SGOT) 16 U/L (15-37) Alanine Aminotransferase (ALT/SGPT) 9 U/L (12-78) L Alkaline Phosphatase 86 U/L (46-116) Creatine Kinase MB 0.9 NG/ML (0.0-3.6) Total Protein 8.4 G/DL (6.4-8.2) H Albumin 3.8 G/DL (3.4-5.0) Globulin 4.6 g/dL Albumin/Globulin Ratio 0.8 (1.0-2.7) L Height (Feet): 4 Height (Inches): 11.00 Weight (Pounds): 110 Medications Current Medications Medications (Trade) Dose Ordered Sig/Jasbir Route PRN Reason Start Time Stop Time Status Last Admin Dose Admin Acetaminophen (Tylenol) 650 mg Q6H PRN ORAL Mild Pain/Temp > 100.5 10/03/17 07:30 11/02/17 07:29 Acetaminophen/ Hydrocodone Bitart ([place] 10/325) 1 tab Q4H PRN ORAL Severe Pain (Pain Scale 7-10) 10/03/17 13:30 10/10/17 13:29 Acetaminophen/ Hydrocodone Bitart ([place] 5/325) 1 tab Q6H PRN ORAL Moderate Pain (Pain Scale 4-6) 10/03/17 13:30 10/10/17 07:29 Amlodipine Besylate (Norvasc) 2.5 mg DAILY ORAL 10/03/17 09:00 11/02/17 08:59 10/03/17 09:01 Clonidine HCl (Catapres Tab) 0.1 mg EVERY 8 HOURS PRN ORAL For High Blood Pressure 10/03/17 08:00 11/02/17 07:59 10/03/17 11:39 Diphenhydramine HCl (Benadryl) 25 mg Q6H PRN ORAL Itching 10/03/17 07:30 11/02/17 07:29 Folic Acid (Folate) 1 mg DAILY ORAL 10/03/17 12:00 11/02/17 11:59 10/03/17 11:39 Furosemide (Lasix) 20 mg ONCE ORAL 10/03/17 07:30 11/02/17 09:00 10/03/17 09:05 Levothyroxine Sodium (Synthroid) 25 mcg DAILY@0630 ORAL 10/03/17 15:00 11/02/17 14:59 Mercaptopurine (Purinethol) 50 mg DAILY ORAL 10/03/17 09:00 10/08/17 08:59 10/03/17 11:39 Mesalamine (Asacol) 1,600 mg THREE TIMES A DAY ORAL 10/03/17 13:00 11/02/17 12:59 10/03/17 12:41 Ondansetron HCl (Zofran) 4 mg Q6H PRN IVP Nausea & Vomiting 10/03/17 07:30 11/02/17 07:29 Phenobarbital (PHENobarbital) 97.2 mg DAILY ORAL 10/03/17 12:30 11/02/17 12:29 10/03/17 11:39 Prednisone (predniSONE) 40 mg DAILY ORAL 10/03/17 09:00 11/02/17 08:59 10/03/17 09:01 Assessment/Plan Problem List: (1) Anemia ICD Codes: D64.9 - Anemia, unspecified SNOMED: 289184160 (2) Seizure disorder ICD Codes: G40.909 - Epilepsy, unspecified, not intractable, without status epilepticus SNOMED: 532235515 (3) HTN (hypertension), benign ICD Codes: I10 - HTN (hypertension), benign SNOMED: 64995216 Assessment/Plan prbc times two doing better dc home Kathy Sawyer MD October 03, 2017 14:46
--- NOTE | 2017-10-03 15:16 | GI Initial Consult Note ---
History of Present Illness General Date patient seen: October 03, 2017 Time patient seen: 15:03 Reason for Hospitalization: Headache Referring physician: YRN SULLIVAN Reason for Consultation: CROHNS Present Illness HPI 37-year-old female presents with headache, nausea, diarrhea, reports no recent bloody stools, or melena, but reports she has Crohn's disease and sometimes there is blood tinging to her bowel movements She denies abdominal pain, fevers , but reports she just has no energy. GI consulted for c/o of diarrhea with history of Crohn's. Pt seen, awake A& Ox4 NAD. States diarrhea has resolved but still reports nausea with no vomiting. Reports history of Crohn's disease, says she takes prednisone for maintenance. Last colonoscopy back in 2010. Pt presents with anemia, requiring 2 units of blood transfusion. Home Meds Active Scripts Phenobarbital* (PHENOBARBITAL*) 30 Mg Tablet, 90 MG ORAL DAILY for 30 Days, TAB 0 Refills Prov:Yusef Torres MD 01/23/16 [Mesalamine] 400 MG CAP No Conflict Check, 1600 MG ORAL THREE TIMES A DAY, #90 CAP Prov:Lorrie Estevez NP 06/25/14 Reported Medications Mercaptopurine (MERCAPTOPURINE) 50 Mg Tablet, 50 MG PO DAILY for 30 Days, TAB 07/06/17 Diphenhydramine HCl (Diphenhydramine HCl) 50 Mg Cap, 50 MG ORAL THREE TIMES A DAY PRN for Itching, CAP 06/22/14 Folic Acid* (FOLIC ACID*) 1 Mg Tablet, 1 MG ORAL DAILY, TAB 03/25/13 Prednisone* (PREDNISONE*) 20 Mg Tablet, 60 MG ORAL DAILY, #30 TAB 0 Refills 03/25/13 Discontinued Reported Medications Prednisone* (PREDNISONE*) 2.5 Mg Tablet, 5 MG ORAL DAILY for 7 Days, #10 TAB 0 Refills 07/06/17 Prednisone* (PREDNISONE*) 10 Mg Tablet, 10 MG ORAL DAILY for 7 Days, #10 TAB 0 Refills 07/06/17 Prednisone* (PREDNISONE*) 10 Mg Tablet, 15 MG ORAL DAILY for 7 Days, #10 TAB 0 Refills 07/06/17 Prednisone* (PREDNISONE*) 20 Mg Tablet, 20 MG ORAL DAILY for 7 Days, TAB 0 Refills 07/06/17 Prednisone* (PREDNISONE*) 20 Mg Tablet, 25 MG ORAL DAILY for 7 Days, TAB 0 Refills 07/06/17 Prednisone* (PREDNISONE*) 20 Mg Tablet, 30 MG ORAL DAILY for 7 Days, TAB 0 Refills 07/06/17 Prednisone* (PREDNISONE*) 20 Mg Tablet, 40 MG ORAL DAILY for 7 Days, TAB 07/06/17 Discontinued Scripts Levothyroxine Sodium* (LEVOTHYROXINE SODIUM*) 25 Mcg Tablet, 25 MCG ORAL DAILY, #30 TAB Take in the morning on an empty stomach, at least 30 minutes before food. Prov:Lorrie Estevez NP 07/09/17 Capsaicin (CAPSAICIN) 42.5 Gm Cream..g., 1 APPLIC TP PRN for Nausea & Vomiting, #42.5 GM Prov:Marie Tomas.Vicky 06/25/17 Ondansetron Odt* (ZOFRAN ODT*) 4 Mg Tab.rapdis, 4 MG ORAL Q6H PRN for Nausea & Vomiting, #20 TAB Prov:Marie Tomas.ATiana 06/25/17 Amlodipine Besylate* (AMLODIPINE BESYLATE*) 2.5 Mg Tablet, 2.5 MG ORAL DAILY, # 7 TAB 0 Refills Prov:RetinoSanty M.DTiana 06/22/17 Nitrofurantoin Monohyd/M-Cryst* (MACROBID 100 MG*) 100 Mg Capsule, 100 MG ORAL EVERY 12 HOURS for 7 Days, #14 CAP Prov:Retino,Mamadouirose M.D. 06/22/17 Clonidine Hcl* (CATAPRES*) 0.1 Mg Tablet, 0.1 MG ORAL Q8H, #90 TAB 0 Refills Prov:Yusef Torres MD 01/23/16 Clonidine HCl (Clonidine HCl) 0.1 Mg Tab, 0.1 MG GT Q6HR PRN, #30 TAB as needed SBP above 160 Prov:Lorrie Estevez NP 06/25/14 Med list reviewed/reconciled: Yes Allergies: Coded Allergies: No Known Allergies (Unverified , 01/23/16) Patient History History Provided By: Patient, Medical Record PMH Narrative Past Medical History: see triage record Last Menstrual Period: 09/16/17 Now: No Reviewed Nursing Documentation: PMH: Agreed; PSxH: Agreed Nursing Documentation-PMH Hx Cardiac Problems: Yes - Hypothyroid Hx Hypertension: Yes Hx Cancer: No Hx Neurological Problems: Yes Hx Seizures: Yes Review of Systems All Other Systems: negative except mentioned in HPI Physical Exam Vital Signs Date Time Temp Pulse Resp B/P (MAP) Pulse Ox O2 Delivery O2 Flow Rate FiO2 10/03/17 01:18 98.3 95 14 144/89 97 Room Air 98.2 Sp02 EP Interpretation: reviewed, normal Labs Laboratory Tests Test 10/03/17 01:45 White Blood Count 10.0 K/UL (4.8-10.8) Red Blood Count 2.22 M/UL (4.20-5.40) L Hemoglobin 6.7 G/DL (12.0-16.0) *L Hematocrit 22.7 % (37.0-47.0) L Mean Corpuscular Volume 102 FL (80-99) H Mean Corpuscular Hemoglobin 30.1 PG (27.0-31.0) Mean Corpuscular Hemoglobin Concent 29.6 G/DL (32.0-36.0) L Red Cell Distribution Width 20.8 % (11.6-14.8) H Platelet Count 513 K/UL (150-450) H Mean Platelet Volume 5.0 FL (6.5-10.1) L Neutrophils (%) (Auto) % (45.0-75.0) Lymphocytes (%) (Auto) % (20.0-45.0) Monocytes (%) (Auto) % (1.0-10.0) Eosinophils (%) (Auto) % (0.0-3.0) Basophils (%) (Auto) % (0.0-2.0) Urine Color Pale yellow Urine Appearance Clear Urine pH 6.5 (4.5-8.0) Urine Specific [place] 1.010 (1.005-1.035) Urine Protein 2+ (NEGATIVE) H Urine Glucose (UA) Negative (NEGATIVE) Urine Ketones Negative (NEGATIVE) Urine Occult Blood 1+ (NEGATIVE) H Urine Nitrite Negative (NEGATIVE) Urine Bilirubin Negative (NEGATIVE) Urine Urobilinogen Normal MG/DL (0.0-1.0) Urine Leukocyte Esterase Negative (NEGATIVE) Urine RBC 2-4 /HPF (0 - 2) H Urine WBC 0-2 /HPF (0 - 2) Urine Squamous Epithelial Cells Few /LPF (NONE/OCC) Urine Bacteria Few /HPF (NONE) Sodium Level 139 MMOL/L (136-145) Potassium Level 4.1 MMOL/L (3.5-5.1) Chloride Level 106 MMOL/L (98-107) Carbon Dioxide Level 18 MMOL/L (21-32) L Anion Gap 15 mmol/L (5-15) Blood Urea Nitrogen 26 mg/dL (7-18) H Creatinine 2.4 MG/DL (0.55-1.30) H Estimat Glomerular Filtration Rate 27.3 mL/min (>60) Glucose Level 117 MG/DL (74-106) H Calcium Level 9.1 MG/DL (8.5-10.1) Magnesium Level 2.3 MG/DL (1.8-2.4) Total Bilirubin 0.2 MG/DL (0.2-1.0) Aspartate Amino Transf (AST/SGOT) 16 U/L (15-37) Alanine Aminotransferase (ALT/SGPT) 9 U/L (12-78) L Alkaline Phosphatase 86 U/L (46-116) Creatine Kinase MB 0.9 NG/ML (0.0-3.6) Total Protein 8.4 G/DL (6.4-8.2) H Albumin 3.8 G/DL (3.4-5.0) Globulin 4.6 g/dL Albumin/Globulin Ratio 0.8 (1.0-2.7) L General Appearance: well appearing, no apparent distress, alert Head: normocephalic EENT: PERRL/EOMI, normal ENT inspection Neck: supple Respiratory: normal breath sounds, no respiratory distress Cardiovascular: normal rate Gastrointestinal: normal inspection, non tender, soft, normal bowel sounds, non -distended Rectal: deferred Genitourinary: no CVA tenderness Musculoskeletal: normal inspection, back normal Neurologic: normal inspection, alert, oriented x3, responsive Psychiatric: normal inspection, judgement/insight normal, memory normal Skin: normal inspection, normal color, no rash, warm/dry, palpation normal, well hydrated Lymphatic: normal inspection, no adenopathy Current Medications Current Medications Medications (Trade) Dose Ordered Sig/Jasbir Route PRN Reason Start Time Stop Time Status Last Admin Dose Admin Acetaminophen (Tylenol) 650 mg Q6H PRN ORAL Mild Pain/Temp > 100.5 10/03/17 07:30 11/02/17 07:29 Acetaminophen/ Hydrocodone Bitart ([place] 10/325) 1 tab Q4H PRN ORAL Severe Pain (Pain Scale 7-10) 10/03/17 13:30 10/10/17 13:29 Acetaminophen/ Hydrocodone Bitart ([place] 5/325) 1 tab Q6H PRN ORAL Moderate Pain (Pain Scale 4-6) 10/03/17 13:30 10/10/17 07:29 Amlodipine Besylate (Norvasc) 2.5 mg DAILY ORAL 10/03/17 09:00 11/02/17 08:59 10/03/17 09:01 Clonidine HCl (Catapres Tab) 0.1 mg EVERY 8 HOURS PRN ORAL For High Blood Pressure 10/03/17 08:00 11/02/17 07:59 10/03/17 11:39 Diphenhydramine HCl (Benadryl) 25 mg Q6H PRN ORAL Itching 10/03/17 07:30 11/02/17 07:29 Folic Acid (Folate) 1 mg DAILY ORAL 10/03/17 12:00 11/02/17 11:59 10/03/17 11:39 Furosemide (Lasix) 20 mg ONCE ORAL 10/03/17 07:30 11/02/17 09:00 10/03/17 09:05 Levothyroxine Sodium (Synthroid) 25 mcg DAILY@0630 ORAL 10/03/17 15:00 11/02/17 14:59 Mercaptopurine (Purinethol) 50 mg DAILY ORAL 10/03/17 09:00 10/08/17 08:59 10/03/17 11:39 Mesalamine (Asacol) 1,600 mg THREE TIMES A DAY ORAL 10/03/17 13:00 11/02/17 12:59 10/03/17 12:41 Ondansetron HCl (Zofran) 4 mg Q6H PRN IVP Nausea & Vomiting 10/03/17 07:30 11/02/17 07:29 Phenobarbital (PHENobarbital) 97.2 mg DAILY ORAL 10/03/17 12:30 11/02/17 12:29 10/03/17 11:39 Prednisone (predniSONE) 40 mg DAILY ORAL 10/03/17 09:00 11/02/17 08:59 10/03/17 09:01 GI: Plan Problems: (1) Anemia (2) Abdominal pain (3) Crohn's colitis (4) Drug abuse (5) Anemia (6) Diarrhea Plan cont prednisone, mesalamine + 6MP for Crohn's anemia work up OB stool r/o GI bleed monitor H&H, prn transfusions >> 2 units given today >> 1 hour post CBC (add ESR + 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 Shah. Thank you for this patient referral, we will follow. The patient was seen and examined at bedside and all new and available data was reviewed in the patients chart. I agree with the above findings, impression and plan. (Patient seen earlier today. Signature stamp does not reflect patient encounter time.). - MD Karime CarterSan Carlos Apache Tribe Healthcare CorporationOlivia POTTS October 03, 2017 15:16
[2017-10-03] MEDS ORDERED: NORVASC2.5 MG ORAL (16:05)
[2017-10-03] MEDS ORDERED: ACETAMINOPHEN-1 EAC1 ORAL (16:06)
[2017-10-03 17:42] LABS: HEMOGLOBIN 10.9 G/DL (12.0-16.0); MEAN CORPUSCULAR VOLUME 92 FL (80-99); PLATELET COUNT 424 K/UL (150-450); RED BLOOD COUNT 3.58 M/UL (4.20-5.40); RED CELL DISTRIBUTION WIDTH 20.5 % (11.6-14.8); WHITE BLOOD COUNT 8.6 K/UL (4.8-10.8)
[2017-10-03] MEDS: Levothyroxine 25mcg tab ORAL SCH ×2 (18:17→20:33)
[2017-10-03 21:00] VITALS: BP 122/74
[2017-10-03 22:15] VITALS: BP 132/77
--- NOTE | 2017-10-03 22:56 | History & Physical ---
History and Physical History & Physicial The patient was seen and examined at bedside and all new and available data was reviewed in the patients chart. Last 24 Hour Vital Signs Date Time Temp Pulse Resp B/P (MAP) Pulse Ox O2 Delivery O2 Flow Rate FiO2 10/03/17 20:35 97.5 10/03/17 12:42 167/104 10/03/17 11:39 148/103 10/03/17 10:00 97.5 10/03/17 09:02 97.5 10/03/17 09:01 71 148/103 10/03/17 09:00 98.2 71 21 148/103 100 Room Air 98.2 10/03/17 05:15 97.5 81 14 151/109 100 Room Air 97.5 10/03/17 04:45 97.5 81 14 97.5 10/03/17 04:45 81 14 151/109 100 Room Air 10/03/17 04:34 97.2 84 14 97.2 10/03/17 04:30 97.2 84 12 149/91 99 Room Air 97.2 10/03/17 03:11 97.2 10/03/17 02:12 98.2 10/03/17 01:23 98.2 102 14 144/89 97 Room Air 98.2 10/03/17 01:18 98.3 95 14 144/89 97 Room Air 98.2 F/U Labs F/U with GI Recommendation Job @ [id number] (Patient was seen earlier today. Signature timestamp does not reflect patient encounter time) Celso Chavis MD, MD October 03, 2017 22:55
--- NOTE | 2017-10-04 14:16 | History and Physical Report ---
DATE OF ADMISSION: 10/03/2017 CHIEF COMPLAINT: Headache, nausea, and vomiting. HISTORY OF PRESENT ILLNESS: This is a 37-year-old female with a past medical history significant for hypothyroidism, hypertension, history of seizure disorder, Crohn's disease who was presented to the hospital complaining about abdominal pain associated with nausea, vomiting, cramps and the patient has a lack of energy, shortness of breath, and tired. Shortly after initial evaluation in the emergency, the patient was noted to have severe anemia with a hemoglobin of 6.7. Subsequently, the patient was admitted to the hospital with severe anemia, required blood transfusion. PAST MEDICAL HISTORY AND PAST SURGICAL HISTORY: As above. History of Crohn's disease, hypertension, hypothyroidism, and seizure disorder. MEDICATIONS AT HOME: Please refer to medication reconciliation. ALLERGIES: No known drug allergies. SOCIAL HISTORY: Denies any smoking, alcohol, or drugs at this time. FAMILY HISTORY: Noncontributory. REVIEW OF SYSTEMS: Mostly as above. Denies any dysuria, frequency, or hematuria. Complained about nausea. No vomiting. Denies any hemoptysis or hematochezia. Denies any bright red blood per rectum. PHYSICAL EXAMINATION: VITAL SIGNS: On admission, temperature 98.3, pulse of 95, respiration 14, and blood pressure 144/89. GENERAL: The patient is awake, responsive, in no acute distress. HEAD AND NECK: Pupils are reactive to light. Nasal cavity has a bandage. Neck was supple. No JVD. LUNGS: Good air entry. No wheezing or rales. HEART: S1, S2. Regular rhythm. No gallops. ABDOMEN: Soft, nondistended, and nontender. Positive bowel sounds. RECTAL: As per emergency physician, normal exam. Brown stool. Hemoccult, negative. Normal rectal tone. EXTREMITIES: No cyanosis, clubbing, edema. NEUROLOGIC: Cranial nerves II through XII are grossly intact. Motor is 5/5 in all extremities. LABORATORY AND DIAGNOSTIC DATA: On admission from the ER, WBC of 10.0, hemoglobin 6.7, hematocrit 22, platelet is 513. Sodium 139, potassium 4.1, chloride 106, bicarbonate 18, BUN 26, creatinine 2.4, and glucose is 117. CRP less than 0.4. Urinalysis +2 protein, +1 occult blood, +2 to 4 RBCs, negative leukocyte. ASSESSMENT: 1. Severe anemia. 2. Hypertension. 3. Chronic renal insufficiency. 4. History of Crohn disease. 5. Hypothyroidism. PLAN: Admit the patient to medical floor. Type and cross transfuse 2 units of blood. Resume home medication. GI consultation with Dr. Shah. We will monitor laboratory if the patient's status improved. Consider discharge home to follow up with the primary doctor as outpatient. Celso Ludwig M.D. DR: IBRAHIMA JOB#: [id number] CC:
--- NOTE | 2017-10-06 10:42 | Discharge Summary ---
Discharge Summary Discharge Summary _ DATE OF ADMISSION: 10/03/2017 DATE OF DISCHARGE: 10/03/2017 REASON FOR ADMISSION: 37 years old female with past medical history significant for hypothyroidism, hypertension, seizure disorder, Crohn disease, chronic renal insufficiency, presented to the hospital complaining of abdominal pain, associated with nausea , vomiting and cramping. Patient reported shortness of breath, lack of energy, generalized weakness and being tired. Upon evaluation in emergency department , hemoglobin 6.7 ,hematocrit 22.7. Laboratory work also showed evidence of renal insufficiency with BUN 26, creatinine 2.4. Vital signs were stable. Patient was admitted with diagnosis of severe anemia, requiring blood transfusion, hypertension, chronic renal insufficiency, history of Crohn's disease , hypothyroidism. CONSULTANTS: GI specialist Dr. Shah [facility]: Patient was admitted to medical surgical floor. Patient was started on the IV fluids. Patient was transfuses with 2 units of packed red blood cells. Hemoglobin from initial 6.7 up to 10.9, and hematocrit from 22.7 up to 33. GI consult was requested. GI recommended continue prednisone, mesalamine and 6 MP for Crohn disease. Bowel regimen instituted. Antiemetics were on standby as needed. Patient was able to tolerate diet. Patient started on the PPI. GI recommended GI referral from primary care provider for further management. Home medications resumed. Levothyroxine was continued. Seizure precautions were maintain. Phenobarbital was continued. No evidence of seizure activity while in the hospital. Blood pressure was managed with the calcium channel marcia and clonidine, and remained stable. Supplemental oxygen was on standby as needed. Pulse oximetry was stable on room air. Patient was stable for discharge home with outpatient referral to GI specialist for further management Due to rapid and unexpected improvement in patient's condition, the patient was discharged in one day. FINAL DIAGNOSES: Severe anemia requiring blood transfusion Crohn's colitis Abdominal pain Hypertension Hypothyroidism Chronic renal insufficiency DISCHARGE MEDICATIONS: See Medication Reconciliation list. DISCHARGE INSTRUCTIONS: Patient was discharged home. Patient to follow-up with the primary care provider next week with referral to GI specialist as per insurance for further outpatient follow-up. I have been assigned to dictate discharge summary for this account. I was not involved in the patient's management. Lorrie Estevez NP October 06, 2017 10:42
--- NOTE | 2017-10-06 14:01 | Cardiology Report ---
APPROVED REPORT EKG Measurement Heart [id number] Normal sinus rhythm Right atrial enlargement Voltage criteria for left ventricular hypertrophy Abnormal ECG
== END 2017-10-03 22:35 | disposition home or self-care (01) | DRG 663 ==
LOC: EDBD 01:15 → EMR 01:42 → 3E 02:33 → EDBEDREQ 02:59
PROC: 30233N1 Transfusion of Nonautologous Red Blood Cells into Peripheral Vein, Percutaneous Approach (ICD-10-PCS; principal; 2017-10-03)
DX: D64.9 Anemia, unspecified (principal); K50.90 Crohn's disease, unspecified, without complications; I12.9 Hypertensive chronic kidney disease with stage 1 through stage 4 chronic kidney disease, or unspecified chronic kidney disease; R10.9 Unspecified abdominal pain; E03.9 Hypothyroidism, unspecified; N18.9 Chronic kidney disease, unspecified
CPT/HCPCS: 36415; 80053; 81003; 82553; 83735; 85007; 85025; 85651; 86140; 86850; 86900; 86901; 86920; 93005; 99285; J2765

== ENCOUNTER 2018-02-12 16:18 | Emergency (ER) | payer OTHER ==
[~2018-02-12] VITALS: Ht 162.6 cm; Wt 47.6 kg
[~2018-02-12 16:18] MED LIST changes: +ACETAMINOPHEN-1 EAC1 ORAL; +NORVASC2.5 MG ORAL
--- NOTE | 2018-02-12 16:29 | Emergency Room Report ---
History of Present Illness General Chief Complaint: Seizure Source: Patient, Medical Record Present Illness HPI Patient is a 38-year-old female who presented after a witnessed seizure home. Patient was noted to have prior history of seizure disorder for which she was previously on phenobarbital. Patient reports pain noncompliant with her medications. She reports having a moderate headache. The patient had prior history of Crohn's disease. She reports taking prednisone. She denies any fever. She denies any recent illness.She reports having moderate neck pain. Allergies: Coded Allergies: No Known Allergies (Unverified , 01/23/16) Patient History Past Medical History: see triage record Reviewed Nursing Documentation: PMH: Agreed; PSxH: Agreed Nursing Documentation-PMH Past Medical History: No History, Except For Hx Cardiac Problems: Yes - Hypothyroid Hx Hypertension: Yes Hx Cancer: No Hx Neurological Problems: Yes Hx Seizures: Yes Review of Systems All Other Systems: negative except mentioned in HPI Physical Exam Vital Signs Date Time Temp Pulse Resp B/P (MAP) Pulse Ox O2 Delivery O2 Flow Rate FiO2 02/12/18 16:12 98.3 116 22 201/148 100 Room Air 98.2 Sp02 EP Interpretation: reviewed, normal General Appearance: normal inspection, well appearing, no apparent distress, alert, GCS 15 Head: other - occipital hematoma ENT: normal ENT inspection, hearing grossly normal, normal voice Neck: normal inspection, full range of motion, supple, no bony tend Respiratory: normal inspection, lungs clear, normal breath sounds, no respiratory distress, no retraction, no wheezing Cardiovascular #1: regular rate, rhythm, no edema Gastrointestinal: normal inspection, normal bowel sounds, non tender, soft, no guarding, no hernia Genitourinary: no CVA tenderness Musculoskeletal: normal inspection, back normal, normal range of motion Neurologic: normal inspection, alert, oriented x3, responsive, 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 Differential diagnosis included alcohol withdrawal, substance abuse, medication noncompliance, cysticercosis, electrolyte abnormality, mass lesion, or intracranial hemorrhage. The patient was noted to have prior history of seizure disorder. Patient was given the patient was loaded with IV Keppra. The CT head was ordered due to patient's head trauma after falling from bed. CT head read by radiology was unremarkable. The patient's laboratory testing was notable for urine drug screen positive for cocaine as well as amphetamine. The laboratory testing was notable for elevated BUN/creatinine which was consistent with patient's previous exams.The patient is advised stop using cocaine and amphetamine as this was likely worsening her seizure threshold. Labs Test 02/12/18 16:24 02/12/18 17:20 White Blood Count 7.3 K/UL (4.8-10.8) Red Blood Count 3.23 M/UL (4.20-5.40) Hemoglobin 9.3 G/DL (12.0-16.0) Hematocrit 29.7 % (37.0-47.0) Mean Corpuscular Volume 92 FL (80-99) Mean Corpuscular Hemoglobin 28.8 PG (27.0-31.0) Mean Corpuscular Hemoglobin Concent 31.3 G/DL (32.0-36.0) Red Cell Distribution Width 18.6 % (11.6-14.8) Platelet Count 362 K/UL (150-450) Mean Platelet Volume 5.0 FL (6.5-10.1) Neutrophils (%) (Auto) 58.0 % (45.0-75.0) Lymphocytes (%) (Auto) 25.8 % (20.0-45.0) Monocytes (%) (Auto) 10.9 % (1.0-10.0) Eosinophils (%) (Auto) 3.8 % (0.0-3.0) Basophils (%) (Auto) 1.5 % (0.0-2.0) Sodium Level 136 MMOL/L (136-145) Potassium Level 3.4 MMOL/L (3.5-5.1) Chloride Level 103 MMOL/L (98-107) Carbon Dioxide Level 21 MMOL/L (21-32) Anion Gap 13 mmol/L (5-15) Blood Urea Nitrogen 32 mg/dL (7-18) Creatinine 2.2 MG/DL (0.55-1.30) Estimat Glomerular Filtration Rate 29.9 mL/min (>60) Glucose Level 96 MG/DL (74-106) Calcium Level 9.3 MG/DL (8.5-10.1) Total Bilirubin 0.2 MG/DL (0.2-1.0) Aspartate Amino Transf (AST/SGOT) 13 U/L (15-37) Alanine Aminotransferase (ALT/SGPT) 13 U/L (12-78) Alkaline Phosphatase 84 U/L (46-116) Troponin I 0.022 ng/mL (0.000-0.056) Total Protein 7.7 G/DL (6.4-8.2) Albumin 2.9 G/DL (3.4-5.0) Globulin 4.8 g/dL Albumin/Globulin Ratio 0.6 (1.0-2.7) Urine Color Pale yellow Urine Appearance Slightly cloudy Urine pH 7 (4.5-8.0) Urine Specific [place] 1.005 (1.005-1.035) Urine Protein 2+ (NEGATIVE) Urine Glucose (UA) Negative (NEGATIVE) Urine Ketones Negative (NEGATIVE) Urine Blood 1+ (NEGATIVE) Urine Nitrite Negative (NEGATIVE) Urine Bilirubin Negative (NEGATIVE) Urine Urobilinogen Normal MG/DL (0.0-1.0) Urine Leukocyte Esterase 1+ (NEGATIVE) Urine RBC 2-4 /HPF (0 - 2) Urine WBC 2-4 /HPF (0 - 2) Urine Squamous Epithelial Cells Many /LPF (NONE/OCC) Urine Bacteria Moderate /HPF (NONE) Urine Trichomonas Few /HPF (NONE) Urine HCG, Qualitative Negative (NEGATIVE) Urine Opiates Screen Negative (NEGATIVE) Urine Barbiturates Screen Negative (NEGATIVE) Phencyclidine (PCP) Screen Negative (NEGATIVE) Urine Amphetamines Screen Positive (NEGATIVE) Urine Benzodiazepines Screen Negative (NEGATIVE) Urine Cocaine Screen Positive (NEGATIVE) Urine Marijuana (THC) Screen Negative (NEGATIVE) EKG Diagnostic Results Rate: normal - 94 Rhythm: NSR ST Segments: no acute changes Last Vital Signs Date Time Temp Pulse Resp B/P (MAP) Pulse Ox O2 Delivery O2 Flow Rate FiO2 02/12/18 16:12 98.3 116 22 201/148 100 Room Air 98.2 Status: improved Disposition: HOME, SELF-CARE Condition: Stable Scripts Levetiracetam (KEPPRA) 500 Mg Tablet 500 MG ORAL EVERY 12 HOURS, #30 TAB 0 Refills Prov: Crow Medina MD 02/12/18 Crow Medina MD Feb 12, 2018 16:29
[2018-02-12] MEDS ORDERED: Acetaminophen 500mg (ES) tab ORAL ONE (16:30)
[2018-02-12] MEDS ORDERED: levETIRAcetam 1,000mg/NS100ml 100 ML IVPB ONE (16:30)
[2018-02-12 16:39] VITALS: BP 149/97
[2018-02-12 16:41] LABS: BASOPHILS % (AUTO) 1.5 % (0.0-2.0); EOSINOPHILS % (AUTO) 3.8 % (0.0-3.0); HEMATOCRIT 29.7 % (37.0-47.0); HEMOGLOBIN 9.3 G/DL (12.0-16.0); LYMPHOCYTES % (AUTO) 25.8 % (20.0-45.0); MEAN CORPUSCULAR VOLUME 92 FL (80-99); MONOCYTES % (AUTO) 10.9 % (1.0-10.0); PLATELET COUNT 362 K/UL (150-450); RED BLOOD COUNT 3.23 M/UL (4.20-5.40); RED CELL DISTRIBUTION WIDTH 18.6 % (11.6-14.8); WHITE BLOOD COUNT 7.3 K/UL (4.8-10.8)
[2018-02-12 17:02] LABS: ANION GAP 13 mmol/L (5-15); BLOOD UREA NITROGEN 32 mg/dL (7-18); CALCIUM 9.3 MG/DL (8.5-10.1); CARBON DIOXIDE 21 MMOL/L (21-32); CHLORIDE 103 MMOL/L (98-107); CREATININE 2.2 MG/DL (0.55-1.30); POTASSIUM 3.4 MMOL/L (3.5-5.1); SODIUM 136 MMOL/L (136-145)
--- NOTE | 2018-02-12 17:03 | Diagnostic Imaging Report ---
Indication: Headache Technique: Contiguous 5 mm thick transaxial imaging of the head obtained in a Siemens Sensation [address] scanner. Soft tissue and bone windows generated. Automatic Exposure Control was utilized. Total Dose length Product (DLP): 1425.[address] Dose Index Volume (CTDIvol): 70.38 mGy Comparison: none Findings: The size and configuration of the cortical sulci, basal cisterns, and ventricles are within normal limits for age. There is no mass effect, midline shift, or edema identified. There is no evidence of acute hemorrhage or abnormal intra-axial or extra-axial fluid collections. The bones and soft tissues are unremarkable. Impression: No mass effect, edema or acute bleed. The CT scanner at [facility] is accredited by the [employer] and the scans are performed using dose optimization techniques as appropriate to a performed exam including Automatic Exposure control.
[2018-02-12 17:21] LABS: ALANINE AMINOTRANSFERASE 13 U/L (12-78); ALBUMIN 2.9 G/DL (3.4-5.0); ALBUMIN/GLOBULIN RATIO 0.6 (1.0-2.7); ALKALINE PHOSPHATASE 84 U/L (46-116); ASPARTATE AMINO TRANSFERASE 13 U/L (15-37); BILIRUBIN,TOTAL 0.2 MG/DL (0.2-1.0)
[2018-02-12 17:38] LABS: APPEARANCE,URINE SLIGHTLY CLOUDY; BILIRUBIN, URINE NEGATIVE (NEGATIVE); COLOR,URINE PALE YELLOW; GLUCOSE, URINE (UA) NEGATIVE (NEGATIVE); KETONES,URINE NEGATIVE (NEGATIVE); LEUKOCYTE ESTERASE ,URINE 1+ (NEGATIVE); NITRITE,URINE NEGATIVE (NEGATIVE); PH,URINE 7 (4.5-8.0); PROTEIN,URINE 2+ (NEGATIVE); UROBILINOGEN,URINE NORMAL MG/DL (0.0-1.0)
[2018-02-12 18:52] VITALS: BP 132/64
[2018-02-12] MEDS ORDERED: KEPPRA500 M4 ORAL (19:05)
[2018-02-12 19:17] VITALS: BP 132/64
== END 2018-02-12 19:18 | disposition home or self-care (01) ==
LOC: EDBD 16:18 → EMR 17:30
DX: F19.10 Other psychoactive substance abuse, uncomplicated (principal); G40.909 Epilepsy, unspecified, not intractable, without status epilepticus; E03.9 Hypothyroidism, unspecified; I10 Essential (primary) hypertension; Z91.19 Patient's noncompliance with other medical treatment and regimen
CPT/HCPCS: 36415; 70450; 80053; 80307; 81003; 81025; 84484; 85025; 87086; 93005; 96374; 99284; J1953

== ENCOUNTER 2018-05-19 06:11 | Emergency (ER) | payer OTHER ==
[~2018-05-19] VITALS: Ht 165.1 cm; Wt 63.5 kg
[~2018-05-19 06:11] MED LIST changes: +KEPPRA500 M4 ORAL
[2018-05-19 06:14] VITALS: BP 157/89
--- NOTE | 2018-05-19 06:26 | Emergency Room Report ---
History of Present Illness General Chief Complaint: General Complaint Source: Patient, Medical Record, EMS (Sergio Schaffer MD) Present Illness HPI Is a 38-year-old female with multiple medical problems including Crohn disease, seizure, hypothyroidism, substance abuse. She presents with chief complaint of generalized body pain and spasm. She said is an exacerbation of her Crohn disease and rheumatoid arthritis. He denies any fever or chills. Pain is 10 out of 10. Unable to walk because she's "locked up." Movement makes it worse. Holding still makes it better. No nausea no vomiting. No fever or chills. No diarrhea. (Sergio Schaffer MD) Allergies: Coded Allergies: No Known Allergies (Unverified , 01/23/16) Patient History Past Medical History: see triage record, old chart reviewed Past Surgical History: other Pertinent Family History: none Social History: Reports: smoking, drug use Last Menstrual Period: n/a Now: No Immunizations: other Reviewed Nursing Documentation: PMH: Agreed; PSxH: Agreed (Sergio Schaffer MD) Nursing Documentation-PMH Past Medical History: No History, Except For Hx Hypertension: Yes Hx Cancer: No Hx Neurological Problems: Yes Hx Seizures: Yes (Sergio Schaffer MD) Review of Systems Eye: Denies: eye pain, blurred vision ENT: Denies: ear pain, nose congestion, throat swelling Respiratory: Denies: cough, shortness of breath Cardiovascular: Denies: chest pain, palpitations Gastrointestinal: Denies: abdominal pain, diarrhea, nausea, vomiting Musculoskeletal: Reports: joint pain, joint swelling, muscle pain, muscle stiffness; Denies: back pain Skin: Denies: rash Neurological: Denies: headache, numbness Endocrine: Denies: increased thirst, increased urine Hematologic/Lymphatic: Denies: easy bruising All Other Systems: negative except mentioned in HPI (Sergio Schaffer MD) Physical Exam Vital Signs Date Time Temp Pulse Resp B/P (MAP) Pulse Ox O2 Delivery O2 Flow Rate FiO2 05/19/18 06:06 98.1 98 22 163/103 98 Room Air vitals with high blood pressure Sp02 EP Interpretation: reviewed, normal General Appearance: well appearing, no apparent distress, alert Head: normocephalic, atraumatic Eyes: bilateral eye PERRL, bilateral eye EOMI ENT: hearing grossly normal, normal pharynx Neck: full range of motion, supple, no meningismus Respiratory: chest non-tender, lungs clear, normal breath sounds Cardiovascular #1: regular rate, rhythm, no murmur Gastrointestinal: normal bowel sounds, non tender, no mass, no organomegaly, no bruit, non-distended Musculoskeletal: back normal, gait/station normal, normal range of motion Psychiatric: mood/affect normal Skin: warm/dry (Sergio Schaffer MD) Medical Decision Making Diagnostic Impression: Primary Impression: Abdominal pain of unknown etiology Additional Impressions: Substance abuse Chronic pain Qualified Codes: G89.4 - Chronic pain syndrome Anemia Qualified Codes: D64.9 - Anemia, unspecified ER Course Patient with generalize pain in abdominal pain. Labs pending. No evidence of any infection. We'll discharge home if Labs are unremarkable. (Sergio Schaffer MD) ER Course Please refer to the initial report for the presentation Following up on blood work at this time patient shows similar anemia to previous Kidney function is also similar to previous findings Patient resting comfortably reports that she has been off her steroids secondary to insurance and primary care lapse of care Patient was provided with Solu-Medrol here Requires improved outpatient care Remains hemodynamically stable and will return with any changes Labs Test 05/19/18 06:20 05/19/18 06:34 Urine Color Pale yellow Urine Appearance Clear Urine pH 7 (4.5-8.0) Urine Specific [place] 1.015 (1.005-1.035) Urine Protein 3+ (NEGATIVE) Urine Glucose (UA) Negative (NEGATIVE) Urine Ketones Negative (NEGATIVE) Urine Blood 3+ (NEGATIVE) Urine Nitrite Negative (NEGATIVE) Urine Bilirubin Negative (NEGATIVE) Urine Urobilinogen Normal MG/DL (0.0-1.0) Urine Leukocyte Esterase 2+ (NEGATIVE) Urine RBC 2-4 /HPF (0 - 2) Urine WBC 2-4 /HPF (0 - 2) Urine Squamous Epithelial Cells Moderate /LPF (NONE/OCC) Urine Bacteria Few /HPF (NONE) Urine HCG, Qualitative Negative (NEGATIVE) Urine Opiates Screen Negative (NEGATIVE) Urine Barbiturates Screen Negative (NEGATIVE) Phencyclidine (PCP) Screen Negative (NEGATIVE) Urine Amphetamines Screen Positive (NEGATIVE) Urine Benzodiazepines Screen Negative (NEGATIVE) Urine Cocaine Screen Negative (NEGATIVE) Urine Marijuana (THC) Screen Positive (NEGATIVE) White Blood Count 10.8 K/UL (4.8-10.8) Red Blood Count 3.49 M/UL (4.20-5.40) Hemoglobin 9.0 G/DL (12.0-16.0) Hematocrit 29.1 % (37.0-47.0) Mean Corpuscular Volume 83 FL (80-99) Mean Corpuscular Hemoglobin 25.9 PG (27.0-31.0) Mean Corpuscular Hemoglobin Concent 31.1 G/DL (32.0-36.0) Red Cell Distribution Width 21.0 % (11.6-14.8) Platelet Count 516 K/UL (150-450) Mean Platelet Volume 4.6 FL (6.5-10.1) Neutrophils (%) (Auto) 74.4 % (45.0-75.0) Lymphocytes (%) (Auto) 15.3 % (20.0-45.0) Monocytes (%) (Auto) 8.3 % (1.0-10.0) Eosinophils (%) (Auto) 1.1 % (0.0-3.0) Basophils (%) (Auto) 0.9 % (0.0-2.0) Sodium Level 140 MMOL/L (136-145) Potassium Level 3.3 MMOL/L (3.5-5.1) Chloride Level 106 MMOL/L (98-107) Carbon Dioxide Level 22 MMOL/L (21-32) Anion Gap 12 mmol/L (5-15) Blood Urea Nitrogen 36 mg/dL (7-18) Creatinine 1.9 MG/DL (0.55-1.30) Estimat Glomerular Filtration Rate 35.5 mL/min (>60) Glucose Level 117 MG/DL (74-106) Calcium Level 9.3 MG/DL (8.5-10.1) Total Creatine Kinase 124 U/L (26-308) Creatine Kinase MB 1.4 NG/ML (0.0-3.6) Creatine Kinase MB Relative Index 1.1 (Dulce Maria Moser DO) Last Vital Signs Date Time Temp Pulse Resp B/P (MAP) Pulse Ox O2 Delivery O2 Flow Rate FiO2 05/19/18 06:06 98.1 98 22 163/103 98 Room Air Status: improved (Sergio Schaffer MD) Status: improved (Dulce Maria Moser DO) Disposition: HOME, SELF-CARE Condition: Stable Scripts Methocarbamol* (ROBAXIN-750*) 750 Mg Tablet 750 MG PO TID, #21 TAB 0 Refills Prov: Dulce Maria Moser DO 05/19/18 Prednisone* (PREDNISONE*) 20 Mg Tablet 20 MG ORAL BID, #20 TAB Prov: Dulce Maria Moser DO 05/19/18 Referrals: [facility],REFERRING (PCP) Additional Instructions: Patient is provided with the discharge instructions notified to follow up with primary doctor in the next 2-3 days otherwise return to the er with any worsening symptoms. Please note that this report is being documented using DRAG[employer] technology. This can lead to erroneous entry secondary to incorrect interpretation by the dictating instrument. Sergio Schaffer MD May 19, 2018 06:26 Dulce Maria Moser DO May 19, 2018 08:42
[2018-05-19] MEDS ORDERED: Solu-MEDROL 125mg Inj IVP ONE ×2 (06:30→07:45)
[2018-05-19] MEDS ORDERED: Ketorolac 30mg Inj IV ONE (06:30)
[2018-05-19 06:36] LABS: APPEARANCE,URINE CLEAR; BILIRUBIN, URINE NEGATIVE (NEGATIVE); COLOR,URINE PALE YELLOW; GLUCOSE, URINE (UA) NEGATIVE (NEGATIVE); KETONES,URINE NEGATIVE (NEGATIVE); LEUKOCYTE ESTERASE ,URINE 2+ (NEGATIVE); NITRITE,URINE NEGATIVE (NEGATIVE); PH,URINE 7 (4.5-8.0); PROTEIN,URINE 3+ (NEGATIVE); UROBILINOGEN,URINE NORMAL MG/DL (0.0-1.0)
[2018-05-19 06:56] LABS: BASOPHILS % (AUTO) 0.9 % (0.0-2.0); EOSINOPHILS % (AUTO) 1.1 % (0.0-3.0); HEMATOCRIT 29.1 % (37.0-47.0); LYMPHOCYTES % (AUTO) 15.3 % (20.0-45.0); MEAN CORPUSCULAR VOLUME 83 FL (80-99); MONOCYTES % (AUTO) 8.3 % (1.0-10.0); NEUTROPHILS % (AUTO) 74.4 % (45.0-75.0); PLATELET COUNT 516 K/UL (150-450); RED BLOOD COUNT 3.49 M/UL (4.20-5.40); WHITE BLOOD COUNT 10.8 K/UL (4.8-10.8)
[2018-05-19 07:10] LABS: ANION GAP 12 mmol/L (5-15); BLOOD UREA NITROGEN 36 mg/dL (7-18); CALCIUM 9.3 MG/DL (8.5-10.1); CARBON DIOXIDE 22 MMOL/L (21-32); CHLORIDE 106 MMOL/L (98-107); CREATININE 1.9 MG/DL (0.55-1.30); POTASSIUM 3.3 MMOL/L (3.5-5.1); SODIUM 140 MMOL/L (136-145)
[2018-05-19 07:25] LABS: CKMB 1.4 NG/ML (0.0-3.6); CREATINE KINASE 124 U/L (26-308)
[2018-05-19] MEDS ORDERED: ROBAXIN-750750 MG PO (08:03)
[2018-05-19] MEDS ORDERED: PREDNISONE20 MG ORAL (08:03)
[2018-05-19 08:14] VITALS: BP 144/88
== END 2018-05-19 08:23 | disposition home or self-care (01) ==
LOC: EDBD 06:11 → EMR 06:22
DX: R10.84 Generalized abdominal pain (principal); F19.10 Other psychoactive substance abuse, uncomplicated; G89.29 Other chronic pain; D64.9 Anemia, unspecified; I10 Essential (primary) hypertension
CPT/HCPCS: 36415; 80048; 80307; 81001; 81025; 82550; 82553; 85025; 96361; 96374; 96375; 96376; 99284; J1885; J2930